=== PATIENT | male | born 1935 | race Caucasian/White ===

== ENCOUNTER 2016-11-09 20:25 | Inpatient (IN) | payer MEDICARE, OTHER ==
[2016-11-09] MEDS ORDERED: SODIUM CHLORIDE 0.9% 1,000 ML IV ONE (20:28)
[2016-11-09] MEDS ORDERED: SODIUM CHLORIDE 0.9% 500 ML IV ONE (20:28)
[2016-11-09] MEDS ORDERED: ACETAMINOPHEN IV (For NPO) 1,000 MG in SALINE 1 100ML.BAG IVPB STA (20:29)
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
[2016-11-09 20:55] LABS: Glucose,Whole Blood 103 mg/dL (75-99)
[2016-11-09 21:15] LABS: Basophils % (A) 0 %; CH 31.6; CHCM 33.1; Eosinophils % (A) 0 %; HCT 40.6 % (39.0-53.0); HDW 2.55; HGB 13.1 gm/dL (13.0-17.5); Luc # (Auto) 0.09; Luc % (Auto) 1; Lymphocytes # (A) 0.3 k/uL (1.0-4.8); Lymphocytes % (A) 5 %; MCH 30.9 pg (25.0-35.0); MCHC 32.2 g/dL (31.0-37.0); Mean Platelet Volume 7.5; Monocytes # (A) 0.3 k/uL (0-1.0); Monocytes % (A) 5 %; Neutrophils # (A) 5.8 k/uL (1.3-7.7); Neutrophils % (A) 88 %; RBC 4.23 m/uL (4.30-5.90); RDW 14.1 % (11.5-15.5); WBC 6.6 k/uL (3.8-10.6); WBC (Perox) 6.98
[2016-11-09 21:25] LABS: Ammonia <9 umol/L (<30)
[2016-11-09 21:26] LABS: INR 1.1 (<1.1); Partial Thromboplastin Time 26.6 sec (22.0-30.0); Prothrombin Time 10.9 sec (9.0-12.0)
[2016-11-09 21:27] LABS: Calcium 8.7 mg/dL (8.4-10.2); Potassium 4.9 mmol/L (3.5-5.1); Total Bilirubin 0.6 mg/dL (0.2-1.3); Total Protein 7.1 g/dL (6.3-8.2)
--- NOTE | 2016-11-09 21:39 | XR ---
EXAMINATION TYPE: XR chest 2V DATE OF EXAM: 11/09/2016 9:34 PM COMPARISON: NONE HISTORY: Weakness and altered mental status TECHNIQUE: Frontal and lateral views of the chest are obtained. FINDINGS: Heart is probably enlarged. Lungs are clear. There is no heart failure. Thoracic aorta is atheromatous. There are no hilar masses. There are chest leads. Bony thorax is intact. IMPRESSION: Cardiomegaly. No acute lung disease.
[2016-11-09 21:51] LABS: Creatine Kinase MB 0.6 ng/mL (0.0-2.4); Troponin I 0.04 ng/mL (0.000-0.034)
[2016-11-09] MEDS ORDERED: ACETAMINOPHEN TAB 325 MG TAB PO PRN (22:58)
[2016-11-09] MEDS ORDERED: NALOXONE 0.4 MG/ML 1 ML VIAL IV PRN (22:58)
[2016-11-09 23:34] LABS: Amorphous Sediment,Urine Rare /hpf; Appearance,Urine Clear (Clear); Bilirubin,Urine Negative (Negative); Glucose,Urine (UA) Negative (Negative); Ketones,Urine Negative (Negative); Leukocyte Esterase,Urine Negative (Negative); Mucus,Urine Rare /hpf; Nitrite,Urine Negative (Negative); PH, Urine 5.5 (5.0-8.0); Particle Count 3674; Protein,Urine 2+ (Negative); RBC,Urine 2 /hpf (0-5); Specific Gravity,Urine 1.008 (1.001-1.035); UA Billing (MACRO vs. MICRO) MICRO; Urobilinogen,Urine <2.0 mg/dL (<2.0); WBC,Urine <1 /hpf (0-5)
[2016-11-10] MEDS: SODIUM CHLORIDE 0.9% 1,000 ML IV SCH ×3 (00:38→23:59)
[2016-11-10 00:45] LABS: Glucose,Whole Blood 117 mg/dL (75-99)
[2016-11-10] MEDS ORDERED: IBUPROFEN 800 MG TAB PO STA (00:54)
[2016-11-10 02:51] VITALS: BMI 29.2
[2016-11-10 03:01] LABS: Glucose,Whole Blood 132 mg/dL (75-99)
[2016-11-10 06:16] LABS: Glucose,Whole Blood 95 mg/dL (75-99)
[2016-11-10] MEDS ORDERED: NON-FORMULARY DRUG (Ubidecarenone [Co Q-10] 100 MG) PO SCH (09:00)
[2016-11-10] MEDS: CHOLECALCIFEROL 1,000 UNIT TAB PO SCH (10:03)
[2016-11-10] MEDS: CYANOCOBALAMIN 500 MCG TAB PO SCH (10:04)
[2016-11-10] MEDS: OSELTAMIVIR 75 MG CAP PO SCH (10:04)
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
[2016-11-10 11:47] LABS: Glucose,Whole Blood 88 mg/dL (75-99)
[2016-11-10] MEDS: guaiFENesin-Coden 100-10MG/5ML 10 ML CUP PO PRN ×2 (12:37→19:41)
[2016-11-10 16:47] LABS: Glucose,Whole Blood 97 mg/dL (75-99)
[2016-11-10] MEDS ORDERED: METOPROLOL TARTRATE 25 MG TAB PO SCH (17:30)
[2016-11-10] MEDS ORDERED: amLODIPine 10 MG TAB PO SCH (18:30)
[2016-11-10] MEDS ORDERED: TEMAZEPAM 15 MG CAP PO PRN (20:45)
[2016-11-11 05:13] VITALS: RESP 18
[2016-11-11 07:08] LABS: Glucose,Whole Blood 80 mg/dL (75-99)
[2016-11-11] MEDS: CYANOCOBALAMIN 500 MCG TAB PO SCH (09:46)
[2016-11-11] MEDS: OSELTAMIVIR 75 MG CAP PO SCH (09:46)
[2016-11-11] MEDS: CHOLECALCIFEROL 1,000 UNIT TAB PO SCH (09:46)
[2016-11-11 11:36] LABS: Glucose,Whole Blood 126 mg/dL (75-99)
[2016-11-11 13:02] VITALS: BP 117/68; PULSE 64; TEMP 99
--- NOTE | 2016-11-11 13:04 | CDI ---
Date: 11/11/2016 From: Kenyatta Jones RN, BSN, CCDS Admit Date: 11/09/2016 Patient Name: Edgard Blair Visit Number: [id number] [facility] [address] [place] [address] Documentation Clarification Form History/Risk Factors : Hypertension Atrial Fibrillation Influenza Dehydration Clinical Indicators : Current BUN/CR/GFR: 05/12. on 11/09 CKD documented in H&P Encephalopathy documented in H&P Treatment: IV fluids In order to capture the severity of condition, please clarify if the condition signifies: CKD Stage 1 (GFR > 90) CKD Stage 2 (GFR 60-89) CKD Stage 3 (GFR 30-59) CKD Stage 4 (GFR 15-29) CKD Stage 5 (GFR <15) ESRD Unable to determine Other condition, please specify Please document in your progress notes and discharge summary in order to capture severity of illness and risk of mortality. Include clinical findings that support your diagnosis. FYI: Press F11 to launch patient chart. Place X here if this finding has no clinical significance, is not applicable or if you are not able to provide any additional documentation. MAURI
[2016-11-11] MEDS: SODIUM CHLORIDE 0.9% 1,000 ML IV SCH (16:13)
--- NOTE | 2016-11-12 19:04 | DS ---
DATE OF ADMISSION: 11/09/2016 DATE OF DISCHARGE: 11/11/2016 FINAL DIAGNOSES: 1. Influenza B with change in mental status and metabolic encephalopathy. 2. Chronic renal failure. 3. Dehydration. 4. Atrial fibrillation. 5. Patient declined anticoagulation. 6. Hypertension. 7. Coronary artery disease, stent. DISCHARGE DISPOSITION: The patient will be discharged in a stable condition with guarded prognosis. HISTORY OF PRESENT ILLNESS: This 81-year-old gentleman who presented with a past medical history of multiple medical problems being followed by Dr. Osvaldo Robbins in the outpatient setting, admitted to the hospital with acute influenza B. Patient also had change in mental status, metabolic encephalopathy, treated symptomatically. continued. The patient improved significantly. On exam, vitals are stable. CARDIOVASCULAR: S1, S2 muffled. ABDOMEN: Soft. CENTRAL NERVOUS SYSTEM: No focal deficits. DISCHARGE ADVICE AND MEDICATIONS: 1. Diet is cardiac. 2. Activity limited until follow-up. 3. Follow-up with Dr. Osvaldo Robbins in 2 to 3 days. 4. Ecotrin 81 mg p.o. daily. 5. Vitamin D3 2000 daily. 6. Vitamin B12 500 mcg. 7. Lopressor 25 mg daily. 8. Tamiflu 30 mg p.o. daily for 3 more days. 9. Coenzyme-Q 100 mg p.o. daily. 10. Norvasc 5 mg p.o. daily. MTDD
--- NOTE | 2016-11-15 07:17 | PN ---
PROGRESS NOTE ADDENDUM: Please add a FINAL DIAGNOSIS: Chronic kidney disease, stage III.
== END 2016-11-11 16:58 | disposition home or self-care (01) | DRG 193 ==
LOC: EC 20:25 → 6SEL 22:58
PROVIDERS: ADMIT Family Medicine; ATTEND Family Medicine
DX: J10.1 Influenza due to other identified influenza virus with other respiratory manifestations (principal); G93.41 Metabolic encephalopathy; I48.91 Unspecified atrial fibrillation; G62.9 Polyneuropathy, unspecified; E86.0 Dehydration; N18.3 Chronic kidney disease, stage 3 (moderate); I12.9 Hypertensive chronic kidney disease with stage 1 through stage 4 chronic kidney disease, or unspecified chronic kidney disease; I25.10 Atherosclerotic heart disease of native coronary artery without angina pectoris; M19.90 Unspecified osteoarthritis, unspecified site; K21.9 Gastro-esophageal reflux disease without esophagitis; Z87.11 Personal history of peptic ulcer disease; Z87.442 Personal history of urinary calculi; Z87.891 Personal history of nicotine dependence; Z95.5 Presence of coronary angioplasty implant and graft; Z90.49 Acquired absence of other specified parts of digestive tract; Z98.42 Cataract extraction status, left eye; Z98.41 Cataract extraction status, right eye; Z96.1 Presence of intraocular lens; Z79.899 Other long term (current) drug therapy
CPT/HCPCS: 36415; 71020; 80053; 80306; 81001; 82140; 82550; 82553; 83605; 84484; 85025; 85610; 85730; 87040; 87086; 93005; 96361; 96365; 96366; 99285

== ENCOUNTER → 2016-11-14 | Outpatient (CLI) | payer MEDICARE, OTHER ==
--- NOTE | 2016-11-14 17:34 | XR ---
EXAMINATION TYPE: XR chest 2V DATE OF EXAM: 11/14/2016 5:12 PM COMPARISON: November 09, 2016 HISTORY: Cough and congestion TECHNIQUE: Frontal and lateral views of the chest are obtained. FINDINGS: There is no heart failure nor confluent pneumonic infiltrate. Thoracic aorta is atheromato us. Costophrenic angles are clear. There is spurring in the thoracic spine. IMPRESSION: No active cardiopulmonary disease. No change. Atheromatous aorta.
== END | disposition home or self-care (01) ==
LOC: RADXRMAIN 16:50
PROVIDERS: ATTEND Physician Assistant
DX: I70.0 Atherosclerosis of aorta (principal); J20.9 Acute bronchitis, unspecified
CPT/HCPCS: 71020

== ENCOUNTER → 2016-12-22 | Outpatient (CLI) | payer MEDICARE, OTHER ==
--- NOTE | 2016-12-23 08:52 | XR ---
EXAMINATION TYPE: XR knee complete LT DATE OF EXAM ORDERED: 12/22/2016 5:45 PM HISTORY: LEFT KNEE PAIN. COMPARISON: None. FINDINGS: There is minimal peaking of intercondylar spines. There is mild medial joint space loss. T here is no evidence of chondrocalcinosis. No acute lesion is seen. Minor fullness in the suprapatella r region makes it impossible to exclude a small effusion. There is vascular calcification present. IMPRESSION: 1. EARLIEST CHANGES OF OSTEOARTHRITIS. 2. I CANNOT EXCLUDE A SMALL JOINT EFFUSION.
== END | disposition home or self-care (01) ==
LOC: RADXRMAIN 17:13
PROVIDERS: ATTEND Family Medicine
DX: M25.562 Pain in left knee (principal)

== ENCOUNTER → 2017-07-13 | Outpatient (CLI) | payer MEDICARE, OTHER ==
--- NOTE | 2017-07-14 07:10 | XR ---
EXAMINATION TYPE: XR tibia fibula LT DATE OF EXAM: 07/13/2017 CLINICAL HISTORY: pain TECHNIQUE: AP and lateral images of the left tibia and fibula are obtained. COMPARISON: None. FINDINGS: There is no acute fracture/dislocation evident. The joint spaces appear within normal chambers its. The overlying soft tissue appears unremarkable. IMPRESSION: There is no acute fracture or dislocation seen. ICD 10 NO FRACTURE, INITIAL EVALUATION
== END | disposition home or self-care (01) ==
LOC: RADXRMAIN 16:21
PROVIDERS: ATTEND Family Medicine
DX: M79.605 Pain in left leg (principal)

== ENCOUNTER → 2017-07-15 | Outpatient (CLI) | payer MEDICARE, OTHER ==
--- NOTE | 2017-07-16 15:01 | XR ---
EXAMINATION TYPE: XR knee complete LT DATE OF EXAM: 07/15/2017 COMPARISON: 12/22/2016 HISTORY: Knee pain TECHNIQUE: 4 views FINDINGS: I see no fracture nor dislocation. There is small knee joint effusion. There is spurring on the patella. IMPRESSION: Mild spurring. Small joint effusion.. No fracture. Overall no significant change compared to old exam.
== END | disposition home or self-care (01) ==
LOC: RADXRMAIN 13:53
PROVIDERS: ATTEND Family Medicine
DX: M25.462 Effusion, left knee (principal); M76.892 Other specified enthesopathies of left lower limb, excluding foot

== ENCOUNTER 2018-11-28 20:00 | Inpatient (IN) | payer MEDICARE ==
[2018-11-28] MEDS ORDERED: ACETAMINOPHEN TAB 500 MG TAB PO STA (21:10)
[2018-11-28] MEDS: SODIUM CHLORIDE 0.9% 500 ML 500 ML IV SCH ×2 (21:33→21:34)
[2018-11-28 21:34] LABS: Basophils % (A) 0 %; Eosinophils % (A) 0 %; HCT 38.9 % (39.0-53.0); Lymphocytes # (A) 0.2 k/uL (1.0-4.8); Lymphocytes % (A) 1 %; MCH 32.2 pg (25.0-35.0); MCHC 33.5 g/dL (31.0-37.0); MCV 95.9 fL (80.0-100.0); Mean Platelet Volume 7.6; Monocytes # (A) 0.6 k/uL (0-1.0); Monocytes % (A) 4 %; Neutrophils # (A) 14.3 k/uL (1.3-7.7); Neutrophils % (A) 94 %; Platelet Count 131 k/uL (150-450); RBC 4.05 m/uL (4.30-5.90); RDW 13.9 % (11.5-15.5); WBC 15.2 k/uL (3.8-10.6)
[2018-11-28 21:42] LABS: Partial Thromboplastin Time 25.8 sec (22.0-30.0)
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
[2018-11-28 21:45] LABS: Albumin 3.8 g/dL (3.5-5.0); Calcium 9.2 mg/dL (8.4-10.2); Total Bilirubin 0.8 mg/dL (0.2-1.3); Total Protein 6.7 g/dL (6.3-8.2)
[2018-11-28 21:56] LABS: Creatine Kinase MB 0.7 ng/mL (0.0-2.4)
[2018-11-28 22:01] LABS: Troponin I 0.045 ng/mL (0.000-0.034)
--- NOTE | 2018-11-28 22:16 | XR ---
History: ITS.REASON XR Reason: Fever Exam: XR CXR 2 VIEWS Comparison: 11/14/2016 FINDINGS: The lungs are clear. The cardiac silhouette again appears enlarged. Visualized osseous structures appear within limits. IMPRESSION: No evidence of acute disease.
[2018-11-28 23:54] LABS: Appearance,Urine Clear (Clear); Bacteria,Urine Rare /hpf; Bilirubin,Urine Negative (Negative); Blood,Urine Small (Negative); Color,Urine Light Yellow; Glucose,Urine (UA) Negative (Negative); Ketones,Urine Negative (Negative); Leukocyte Esterase,Urine Negative (Negative); Nitrite,Urine Negative (Negative); Protein,Urine 2+ (Negative); RBC,Urine 1 /hpf (0-5); Urobilinogen,Urine <2.0 mg/dL (<2.0)
--- NOTE | 2018-11-29 01:35 | CT ---
History: ITS.REASON CT Reason: Pain Exam: CT ABDOMEN + PELVIS Without Contrast Technique more: CTDI is 13.5 mGy and DLP is 787 mGy-cm. Technique more: This CT exam was performed using one or more of the following dose reduction techniques: automated exposure control, adjustment of the mA and/or kV according to patient size, and/or use of iterative reconstruction technique. Comparison: 02/03/2016 FINDINGS: Motion artifact. Basilar atelectasis. Cardiac size appears large. Coronary calcification or stents. Status post cholecystectomy. Atrophic kidneys with bilateral renal cysts again noted. No renal stones or hydronephrosis. Bilateral perinephric stranding is nonspecific. Other abdominal solid organs and abdominal aorta appear within limits on noncontrast imaging. Aortoiliac atherosclerotic calcification again noted. No bowel dilation or free air. Diverticulosis without evidence of diverticulitis. No free fluid. Fat-containing left inguinal hernia. The bladder is mostly collapsed. IMPRESSION: Basilar atelectasis. Cardiac size appears large. Coronary calcification or stents. Status post cholecystectomy. Atrophic kidneys with bilateral renal cysts again noted. No renal stones or hydronephrosis. Bilateral perinephric stranding is nonspecific. Diverticulosis without evidence of diverticulitis.
[2018-11-29] MEDS ORDERED: ONDANSETRON 4 MG/2 ML VIAL IVP PRN (03:56)
[2018-11-29] MEDS ORDERED: NALOXONE 0.4 MG/ML 1 ML VIAL IV PRN (03:56)
[2018-11-29] MEDS ORDERED: LEVOFLOXACIN 750MG-D5W PMX 750 MG in DEXTROSE/WATER 1 150ML.BAG IVPB STA (04:03)
[2018-11-29] MEDS: SODIUM CHLORIDE 0.9% 1,000 ML IV SCH (04:29)
[2018-11-29] MEDS: ACETAMINOPHEN TAB 325 MG TAB PO PRN ×2 (05:16→17:41)
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
[2018-11-29 12:30] LABS: Basophils % (A) 0 %; Eosinophils # (A) 0.1 k/uL (0-0.7); Eosinophils % (A) 0 %; HCT 36.3 % (39.0-53.0); HGB 11.5 gm/dL (13.0-17.5); Lymphocytes # (A) 0.7 k/uL (1.0-4.8); Lymphocytes % (A) 5 %; MCH 31.6 pg (25.0-35.0); MCHC 31.8 g/dL (31.0-37.0); MCV 99.5 fL (80.0-100.0); Mean Platelet Volume 6.9; Monocytes # (A) 0.5 k/uL (0-1.0); Monocytes % (A) 4 %; Neutrophils # (A) 12.7 k/uL (1.3-7.7); Neutrophils % (A) 90 %; Platelet Count 126 k/uL (150-450); RBC 3.65 m/uL (4.30-5.90); RDW 14.2 % (11.5-15.5); WBC 14.1 k/uL (3.8-10.6)
[2018-11-29 12:40] LABS: Albumin 3.1 g/dL (3.5-5.0); Calcium 8.8 mg/dL (8.4-10.2); Potassium 5.4 mmol/L (3.5-5.1); Total Bilirubin 0.6 mg/dL (0.2-1.3); Total Protein 5.7 g/dL (6.3-8.2)
--- NOTE | 2018-11-29 13:06 | CT ---
EXAMINATION TYPE: CT brain wo con DATE OF EXAM: 11/29/2018 COMPARISON: 09/22/2014 HISTORY: Altered mental status. CT DLP: 1149.[address] of the brain was performed. The ventricles, basal cisterns and sulci overlying the cerebral convexities demonstrate mild enlargem ent. There is no evidence for intracranial hemorrhage or sulcal effacement. There is decreased attenuation about the periventricular white matter and deep white matter of both c erebral hemispheres, compatible with chronic small vessel ischemia. Differential diagnosis does inclu de demyelination. No mass effects are seen.No midline shift. Osseous calvarium is intact. If symptoms persist consider MRI. IMPRESSION: 1. Age related atrophic and chronic small vessel ischemic change without acute intracranial process s een at this time.
[2018-11-29] MEDS: amLODIPine 10 MG TAB PO SCH (17:18)
[2018-11-29] MEDS: METOPROLOL TARTRATE 12.5 MG TAB PO SCH (17:18)
[2018-11-30] MEDS: SODIUM CHLORIDE 0.9% 1,000 ML IV SCH ×2 (00:29→16:26)
[2018-11-30] MEDS: ACETAMINOPHEN TAB 325 MG TAB PO PRN (03:06)
[2018-11-30] MEDS: CHOLECALCIFEROL 1,000 UNIT TAB PO SCH (08:45)
[2018-11-30] MEDS ORDERED: NON-FORMULARY DRUG (Ubidecarenone [Co Q-10] 100 MG) PO SCH (09:00)
[2018-11-30 11:30] LABS: Basophils % (A) 0 %; Eosinophils # (A) 0.1 k/uL (0-0.7); Eosinophils % (A) 0 %; HCT 42.3 % (39.0-53.0); HGB 13.6 gm/dL (13.0-17.5); Lymphocytes # (A) 1.3 k/uL (1.0-4.8); Lymphocytes % (A) 9 %; MCH 31.2 pg (25.0-35.0); MCHC 32.1 g/dL (31.0-37.0); MCV 97.3 fL (80.0-100.0); Mean Platelet Volume 7.7; Monocytes # (A) 0.8 k/uL (0-1.0); Monocytes % (A) 5 %; Neutrophils # (A) 11.9 k/uL (1.3-7.7); Neutrophils % (A) 83 %; RBC 4.35 m/uL (4.30-5.90); RDW 14.2 % (11.5-15.5); WBC 14.3 k/uL (3.8-10.6)
[2018-11-30 11:34] LABS: Platelet Count 93 k/uL (150-450)
[2018-11-30 11:37] LABS: Calcium 9.2 mg/dL (8.4-10.2)
[2018-11-30 11:39] LABS: Potassium 5.8 mmol/L (3.5-5.1)
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
[2018-11-30 12:11] LABS: Cholesterol 122 mg/dL (<200); HDL Cholesterol 37 mg/dL (40-60); LDL Cholesterol,Calculated 69 mg/dL (0-99); Triglycerides 80 mg/dL (<150)
--- NOTE | 2018-11-30 13:32 | ECHOF ---
Referral Reason:CAD MEASUREMENTS -------- HEIGHT: 165.1 cm WEIGHT: 92.1 kg BP: 155/65 IVSd: 1.6 cm (0.6 - 1.1) LVIDd: 4.0 cm (3.9 - 5.3) LVPWd: 1.7 cm (0.6 - 1.1) IVSs: 2.4 cm LVIDs: 2.5 cm LVPWs: 2.3 cm LAESV Index (A-L): 50.49 ml/m Ao Diam: 4.5 cm (2.0 - 3.7) AV Cusp: 2.0 cm (1.5 - 2.6) LA Diam: 4.0 cm (2.7 - 3.8) MV EXCURSION: 13.189 mm (> 18.000) MV EF SLOPE: 111 mm/s (70 - 150) EPSS: 0.7 cm MV E Sotero: 1.07 m/s MV DecT: 204 ms MV A Sotero: 0.28 m/s MV E/A Ratio: 3.82 AR PHT: 343 ms RAP: 5.00 mmHg RVSP: 10.33 mmHg FINDINGS -------- Sinus rhythm with extra systolic beats. This was a technically difficult study with suboptimal views. The left ventricular size is normal. There is moderate concentric left ventricular hypertrophy. O verall left ventricular systolic function is mildly impaired with, an EF between 45 - 50 %. Basal a nterior LV wall motion is hypokinetic. Basal inferior LV wall motion is hypokinetic. Mid anteri or LV wall motion is hypokinetic. The right ventricle is normal in size. LA is severely dilated >40 ml/m2 The right atrium is normal in size. xx ml of Lumason was utilized for enhancement of images. Aortic valve is trileaflet and is mildly thickened. Trace amount of aortic regurgitation. The mitral valve leaflets are mildly thickened. Mild mitral regurgitation is present. Mild tricuspid regurgitation present. The right ventricular systolic pressure, as measured by Doppl er, is 10.33mmHg. Pulmonic valve appears structurally normal. The aortic root and ascending aorta are dilated measuring up to 4.5 cm The pericardium is normal. CONCLUSIONS -------- 1. Sinus rhythm with extra systolic beats. 2. This was a technically difficult study with suboptimal views. 3. The left ventricular size is normal. 4. There is moderate concentric left ventricular hypertrophy. 5. Overall left ventricular systolic function is mildly impaired with, an EF between 45 - 50 %. 6. Basal anterior LV wall motion is hypokinetic. 7. Basal inferior LV wall motion is hypokinetic. 8. Mid anterior LV wall motion is hypokinetic. 9. The right ventricle is normal in size. 10. LA is severely dilated >40 ml/m2 11. The right atrium is normal in size. 12. xx ml of Lumason was utilized for enhancement of images. 13. Aortic valve is trileaflet and is mildly thickened. 14. Trace amount of aortic regurgitation. 15. The mitral valve leaflets are mildly thickened. 16. Mild mitral regurgitation is present. 17. Mild tricuspid regurgitation present. 18. The right ventricular systolic pressure, as measured by Doppler, is 10.33mmHg. 19. Pulmonic valve appears structurally normal. 20. The aortic root and ascending aorta are dilated measuring up to 4.5 cm. 21. The pericardium is normal. ROOFER APPLICATOR: Gardenia Nix RDCS
--- NOTE | 2018-11-30 13:36 | US ---
EXAMINATION TYPE: US venous doppler duplex LE RT DATE OF EXAM: 11/30/2018 1:29 PM COMPARISON: NONE CLINICAL HISTORY: lower ext swelling, right . Right leg edema SIDE PERFORMED: right TECHNIQUE: The lower extremity deep venous system is examined utilizing real time linear array sonog love with graded compression, doppler sonography and color-flow sonography. VESSELS IMAGED: External Iliac Vein (EIV) Common Femoral Vein Deep Femoral Vein Greater Saphenous Vein * Femoral Vein Popliteal Vein Small Saphenous Vein * Proximal Calf Veins (* superficial vessels) Right Leg: No evidence of DVT IMPRESSION: 1. Right lower survey ultrasound negative for deep venous thrombosis
[2018-11-30] MEDS ORDERED: SODIUM POLYSTYRENE SULFONATE 15 GM/60 ML BOTTLE PO ONE (14:29)
[2018-11-30] MEDS: HEPARIN SODIUM,PORCINE 5,000 UNIT/ML 1 ML VIAL SQ SCH (15:02)
[2018-11-30] MEDS: SODIUM CHLORIDE 0.45% 1,000 ML IV SCH (15:03)
[2018-11-30] MEDS: METOPROLOL TARTRATE 12.5 MG TAB PO SCH (17:17)
[2018-11-30] MEDS: amLODIPine 10 MG TAB PO SCH (17:17)
[2018-11-30] MEDS: SODIUM BICARBONATE TAB 650 MG TAB PO SCH (19:57)
--- NOTE | 2018-11-30 23:35 | P.PN ---
Subjective Progress Note Date: 11/30/18 Principal diagnosis: Altered mental status Fever Right lower extremities cellulitis Atrial fibrillation with RVR This is a pleasant 83-year-old male past medical history significant for coronary artery disease s/p stent placement o mid LAD and mild disease in RCA, circumflex and PLV branch, chronic persistent atrial fibrillation not on correction anti-coagulation due to personal choice, hypertension, chronic kidney disease, peripher neuropathy and gastroesophageal reflux disease presented the emergency room with fever and altered mental status. reported that extended nap and was unable to wake him. Found to have fever of 102.7 . Chest x-ray showed basilar atelectasis. No acute process. , CT head, CT abdomen and pelvis showed no acute process. WBC 15.2, hemoglobin 9.5, potassium 5.4 sodium 138 and BUN 47 and creatinine 2. 62 Troponin 0.045 and 0.074 11/28/2089 Patient currently denied any complaints of chest pain or shortness of breath. No cough is from production. No denied any dysuria or hematuria. Patient is able to communicate but poor historian. Patient does have some confusion at baseline. Patient was having fever this morning with T-max 100.3. Currently afebrile. Patient was found to have swelling or redness of right lower extremities after knee. Patient does not have any pain. Able to walk with walker. Patient was seen by cardiology and nephrology. Current medications reviewed. Active Medications Acetaminophen (Tylenol Tab) 650 mg PO Q6HR PRN PRN Reason: Mild Pain or Fever > 100.5 Last Admin: 11/30/18 03:06 Dose: 325 mg Amlodipine Besylate (Norvasc) 10 mg PO W/SUPPER [facility] Last Admin: 11/30/18 17:17 Dose: 10 mg Cholecalciferol (Vitamin D3) 2,000 unit PO DAILY [facility] Last Admin: 11/30/18 08:45 Dose: 2,000 unit Heparin Sodium (Porcine) (Heparin) 5,000 unit SQ Q8HR [facility] Last Admin: 11/30/18 15:02 Dose: 5,000 unit Sodium Chloride (Saline 0.45%) 1,000 mls @ 75 mls/hr IV .[id number] [facility] Last Admin: 11/30/18 15:03 Dose: 75 mls/hr Cefazolin Sodium/Dextrose 1, (000 mg/ IV Solution) 50 mls @ 100 mls/hr IVPB Q8HR [facility] Metoprolol Tartrate (Lopressor) 12.5 mg PO W/SUPPER [facility] Last Admin: 11/30/18 17:17 Dose: 12.5 mg Naloxone HCl (Narcan) 0.2 mg IV Q2M PRN PRN Reason: Opioid Reversal Ondansetron HCl (Zofran) 4 mg IVP Q8HR PRN PRN Reason: Nausea And Vomiting Sodium Bicarbonate (Sodium Bicarbonate Tab) 650 mg PO BID [facility] Last Admin: 11/30/18 19:57 Dose: 650 mg Objective - Vital Signs Vital signs: Vital Signs Temp 98.0 F 11/30/18 10:07 Pulse 96 11/30/18 10:07 Resp 18 11/30/18 10:07 BP 156/87 11/30/18 10:07 Pulse Ox 97 11/30/18 03:00 Intake & Output 11/29/18 11/30/18 11/30/18 18:59 06:59 18:59 Intake Total 150 Balance 150 Intake: Intake, IV Titration 150 Amount Sodium Chloride 0.9% 1, 150 000 ml @ 75 mls/hr IV . [id number] [facility] Rx#:[id number] Other: Voiding Method Toilet # Voids 2 1 - Exam PHYSICAL EXAMINATION: Patient is lying in the bed comfortably, no acute distress, awake alert and oriented. Confused. History unavailable. HEENT: Normocephalic. Neck is supple. Pupils reactive. Nostrils clear. Oral cavity is moist. Ears reveal no drainage. Neck reveals no JVD, carotid bruits, or thyromegaly. CHEST EXAMINATION: Trachea is central. Symmetrical expansion. Lung grajeda clear to auscultation and percussion. CARDIAC: Normal S1, S2 with no gallops. No murmurs ABDOMEN: Soft. Bowel sounds normal. No organomegaly. No abdominal bruits. Extremities: Right lower activity swelling and redness and warmth up to knee.. No clubbing or cyanosis Neurologically awake, alert, oriented x2-3 with well-coordinated movements. No focal deficits noted Skin: No rash or skin lesions. Psychiatric: Coperative. Could not be assessed completely. Musculoskeletal: No joint swelling or deformity. Normal range of motion. - Labs CBC & Chem 7: 11/30/18 10:40 11/30/18 10:40 Labs: Abnormal Lab Results - Last 24 Hours (Table) 11/29/18 11/30/18 11/30/18 Range/Units 11:50 10:40 10:40 WBC 14.3 H (3.8-10.6) k/uL Plt Count 93 L (150-450) k/uL Neutrophils # 11.9 H (1.3-7.7) k/uL Potassium 5.8 H (3.5-5.1) mmol/L Chloride 114 H (98-107) mmol/L Carbon Dioxide 18 L (22-30) mmol/L BUN 52 H (9-20) mg/dL Creatinine 3.08 H (0.66-1.25) mg/dL Glucose 101 H (74-99) mg/dL HDL Cholesterol 37 L (40-60) mg/dL Microbiology - Last 24 Hours (Table) 11/28/18 20:45 Blood Culture - Preliminary Blood No Growth after 24 hours 11/28/18 23:15 Urine Culture - Preliminary Urine,Catheterized Assessment and Plan Assessment: Altered mental status with metabolic encephalopathy due to infection and renal failure Right lower extremities cellulitis Fever and leukocytosis likely secondary to above Mild troponin elevation. Likely due to infection and ALTON. Chronic persistent atrial fibrillation. Rate regular rate controlled. Patient refused anticoagulation. Acute on chronic kidney disease. Likely stage III Baseline creatinine unknown. Hyperkalemia 5.8 secondary to ALTON History of coronary artery disease status post and placement GERD Hypertension Osteoarthritis Possible underlying cognitive impairment and underlying dementia DVT prophylaxis with heparin subcu Patient will be continued on telemetry monitoring. We'll change antibiotics to cefazolin IV. Chest x-ray, UA and influenza negative. Lower extremities duplex scan is negative for DVT. 2-D echocardiogram was ordered. Cardiology is following. Nephrology is on board. Workup for chronic kidney disease pending at this time. Continue with the current management and follow blood cultures. Discussed with his at bedside in detail. Prognosis is guarded with multiple medical problems and comorbid conditions. Time with Patient: Greater than 30
[2018-12-01 00:08] LABS: Hepatitis B Surface AB- Quant 3.5 mIU/mL; Hepatitis C IgG Antibody Non-Reactive (Non-Reactive)
[2018-12-01] MEDS: ceFAZolin 1,000 MG in DEXTROSE/WATER 1 50ML.BAG IVPB SCH ×4 (00:58→23:36)
[2018-12-01] MEDS: HEPARIN SODIUM,PORCINE 5,000 UNIT/ML 1 ML VIAL SQ SCH ×5 (00:58→23:42)
[2018-12-01 01:51] LABS: Anti-DNA, DS unit <1.0 IU/mL; DNA Double-Stranded NEGATIVE (NEGATIVE)
[2018-12-01] MEDS: SODIUM CHLORIDE 0.45% 1,000 ML IV SCH ×3 (04:21→20:10)
--- NOTE | 2018-12-01 05:58 | CONS ---
CONSULTATION REASON FOR CONSULT: Renal failure. HISTORY OF PRESENT ILLNESS: The patient is an 83-year-old male with a history of chronic atrial fibrillation, hypertension, osteoarthritis, gastroesophageal reflux disease. He was admitted to the hospital with complaints of weakness. He was found to have a fever of 102.7 degrees Fahrenheit. He denied any significant cough, abdominal pain, nausea, vomiting or diarrhea. The patient had CT of the abdomen done without IV contrast, which showed evidence of bilateral renal cysts with atrophic kidneys. Blood pressure has not been low, however, there was one reading of systolic blood pressure of 104 mmHg. At home, patient was not on any nonsteroidal anti-inflammatory agents. Serum creatinine was 2.6 mg/dL. It increased to 2.9 yesterday and today it is at 3.0 mg/dL. Review of previous labs show serum creatinine about 2.3-2.8 mg/dL all the way back to 2016. It looks like the patient was scheduled to see us in the office, but has not been seen by us. He states he has been voiding. UA does not show any evidence of infection. The patient does have 2+ protein. PAST MEDICAL HISTORY: Hypertension, osteoarthritis, coronary artery disease with history of coronary stent, gastroesophageal reflux disease and history of a GI bleed and duodenal ulcer. PAST SURGICAL HISTORY: Adenoidectomy, appendectomy, cholecystectomy, cardiac catheterization, prostatic surgery, tonsillectomy, coronary stent placement, cataract surgery, lithotripsy, colonoscopy, cystoscopy. SOCIAL HISTORY: Patient is a former smoker. No history of drug abuse or alcohol abuse. MEDICATIONS: Medications at home prior to admission included Lopressor, vitamin D3, Norvasc, vitamin B12. ALLERGIES: None. PHYSICAL EXAMINATION: Patient is comfortable, awake, alert, oriented x3, not in any acute distress. Blood pressure was this morning 156/87, heart rate 96 per minute. He is afebrile. Examination of the heart S1, S2. Examination lungs, bilateral breath sounds are heard. Abdomen is soft, nontender. Examination lower extremities shows no evidence of edema. [employer] exam is grossly intact. Patient moving all 4 extremities. LABS: Show sodium of 139, potassium 5.8, chloride 114, CO2 is 18, BUN 52, serum creatinine 3.08, hemoglobin 13.6 g/dL. UA shows 2+ protein, small blood is seen, rare bacteria. CT scan showed atrophic kidneys with bilateral cysts. No evidence of hydronephrosis. ASSESSMENT: 1. Acute kidney injury. Possible acute tubular necrosis, currently nonoliguric. Need to rule out urine retention. There is no evidence of significant hydronephrosis on the CT scan. The patient was not on any nephrotoxic agents prior to admission. Blood pressure has not been significantly low, although there was one reading of systolic of 104 mmHg. The patient does have proteinuria which needs to be evaluated. He has had a creatinine of about 2.[address] back in 2016. Therefore, I believe he may not be far from his baseline renal function. We will obtain workup for proteinuria and quantify the proteinuria. 2. Hyperkalemia associated with renal failure. Maintain patient on low-potassium diet and I will add sodium bicarb as well. 3. History of atrial fibrillation, controlled ventricular response. 4. Hypertension, currently controlled. 5. Cardiomyopathy, ejection fraction 45-50 percent. 6. Severely dilated left atrium. PLAN: Check random urine protein creatinine ratio. Add oral sodium bicarb. Continue with IV fluids. The patient will definitely need follow up as outpatient. I will check baseline serologies for workup of proteinuria as well. Check a postvoid residual to rule out urine retention and maintain patient on low-potassium diet. Thank you for this consultation. We will continue to follow the patient with you during his hospitalization. [id number] / IJN: [id number] /
[2018-12-01] MEDS: CHOLECALCIFEROL 1,000 UNIT TAB PO SCH (08:43)
[2018-12-01] MEDS: SODIUM BICARBONATE TAB 650 MG TAB PO SCH ×2 (08:43→20:08)
--- NOTE | 2018-12-01 13:11 | P.PN ---
Subjective Progress Note Date: 12/01/18 Principal diagnosis: This is a 83-year-old male seen in consultation because of chronic kidney disease and acute kidney injury He was admitted with mental status changes and fever cultures are negative so far urine analysis benign chest x-ray is negative. He is improved is awake and alert. It seems that he was referred to our office but did not show up in 2016. His creatinine was 2.9 at the time Currently he is awake alert oriented denies any chest pain shortness of breath nausea vomiting diarrhea appetite is good No problem with his urinary habits or any history of prostatism. He does say that he had kidney stones that were removed in the past graft workup has shown a computed tomography scan with small kidneys no kidney stones are noted. He's had history of heart catheterization prostate surgery lithotripsy. Objective - Vital Signs Vital signs: Vital Signs Temp 97.8 F 12/01/18 07:00 Pulse 73 12/01/18 07:00 Resp 14 12/01/18 07:00 BP 145/78 12/01/18 07:00 Pulse Ox 100 12/01/18 07:00 Intake & Output 11/30/18 12/01/18 12/01/18 18:59 06:59 18:59 Intake Total 525 950 296 Output Total 150 Balance 375 950 296 Intake: Intake, IV Titration 525 950 Amount Sodium Chloride 0.45% 1, 525 900 000 ml @ 75 mls/hr IV . [id number] [place] Rx#:[id number] ceFAZolin 1,000 mg In 50 Dextrose/Water 1 50ml.bag @ 100 mls/hr IVPB Q8HR [place] Rx#:[id number] Oral 296 Output: Urine 150 Other: Voiding Method Toilet Toilet # Voids 1 2 On exam she is awake alert oriented. HEENT exam no JVP neck is supple no facial asymmetry Lungs clear to auscultation good air entry bilaterally Heart sounds unremarkable for any murmur rub gallop Abdomen soft nontender Extremity exam significant for erythema of his right leg up to the knees with minimal tenderness. Possible cellulitis. Minimal edema on the right as well left. Neurologically awake alert oriented - Labs CBC & Chem 7: 11/30/18 10:40 11/30/18 10:40 Labs: Abnormal Lab Results - Last 24 Hours (Table) 12/01/18 Range/Units Unknown U Random Total Protein 101 H (<12) mg/dL Microbiology - Last 24 Hours (Table) 11/28/18 20:45 Blood Culture - Preliminary Blood No Growth after 48 hours 11/28/18 23:15 Urine Culture - Final Urine,Catheterized Assessment and Plan Assessment: Impression 1. Chronic kidney disease likely nephrosclerosis with 2 g proteinuria not worked up. Rule out other glomerular or tubulous interstitial disease. Baseline creatinine 2.3 as of 11/09/2016 admitted with creatinine off 2.6 to and has gone up to 3.08 yesterday and refuses lab this morning 2. Hyperkalemia secondary to chronic kidney disease creatinine is 5.8 refuses lab this morning. Was prescribed Kayexalate as well as sodium bicarb, the latter he refused. 3. Mild degree of non-gap acidosis. Gap 7 and bicarb 18. Refusing bicarb. 4. Cellulitis right leg up to knees on antibiotics. 5. Rule out glomerular disease as mentioned above, urine protein to creatinine ratio is 2 g range. so far SUAD and double-stranded DNA is negative Recommendations 1. Check urine immunoelectrophoresis. 2. Labs pending include C3-C4 c-ANCA 3. Patient is somewhat noncompliant patient has been warned about needing dialysis in the immediate future in the next few weeks to months. His been told to follow up with office if he is discharged as he is asking to be discharged [facility]
[2018-12-01 15:31] LABS: Basophils % (A) 1 %; Eosinophils # (A) 0.1 k/uL (0-0.7); Eosinophils % (A) 2 %; HCT 39.1 % (39.0-53.0); HGB 12.3 gm/dL (13.0-17.5); Lymphocytes # (A) 0.9 k/uL (1.0-4.8); Lymphocytes % (A) 14 %; MCH 31.1 pg (25.0-35.0); MCHC 31.5 g/dL (31.0-37.0); MCV 98.9 fL (80.0-100.0); Mean Platelet Volume 7.4; Monocytes # (A) 0.4 k/uL (0-1.0); Monocytes % (A) 7 %; Neutrophils # (A) 4.4 k/uL (1.3-7.7); Neutrophils % (A) 73 %; Platelet Count 116 k/uL (150-450); RBC 3.95 m/uL (4.30-5.90); RDW 14.1 % (11.5-15.5)
[2018-12-01 15:41] LABS: Calcium 8.8 mg/dL (8.4-10.2); Potassium 4.8 mmol/L (3.5-5.1)
[2018-12-01] MEDS: METOPROLOL TARTRATE 12.5 MG TAB PO SCH (16:27)
[2018-12-01] MEDS: amLODIPine 10 MG TAB PO SCH (16:27)
[2018-12-01] MEDS: ACETAMINOPHEN TAB 325 MG TAB PO PRN (23:59)
--- NOTE | 2018-12-01 23:59 | P.PN ---
Subjective Progress Note Date: 12/01/18 Principal diagnosis: Altered mental status Fever Right lower extremities cellulitis Atrial fibrillation with RVR This is a pleasant 83-year-old male past medical history significant for coronary artery disease s/p stent placement o mid LAD and mild disease in RCA, circumflex and PLV branch, chronic persistent atrial fibrillation not on body masker anti-coagulation due to personal choice, hypertension, chronic kidney disease, peripher neuropathy and gastroesophageal reflux disease presented the emergency room with fever and altered mental status. reported that extended nap and was unable to wake him. Found to have fever of 102.7 . Chest x-ray showed basilar atelectasis. No acute process. , CT head, CT abdomen and pelvis showed no acute process. WBC 15.2, hemoglobin 9.5, potassium 5.4 sodium 138 and BUN 47 and creatinine 2. 62 Troponin 0.045 and 0.074 11/30/2018 Patient currently denied any complaints of chest pain or shortness of breath. No cough is from production. No denied any dysuria or hematuria. Patient is able to communicate but poor historian. Patient does have some confusion at baseline. Patient was having fever this morning with T-max 100.3. Currently afebrile. Patient was found to have swelling or redness of right lower extremities after knee. Patient does not have any pain. Able to walk with walker. Patient was seen by cardiology and nephrology. 12/01/2018 Patient currently denied any complaints of chest pain or shortness of breath. Right lower extremities swelling is improved but still having redness and mild tenderness. No fever no chills. Leukocytosis improved. Renal function slightly improved with creatinine level II.8 today Nephrology and cardiology is following. current medications reviewed. Active Medications Acetaminophen (Tylenol Tab) 650 mg PO Q6HR PRN PRN Reason: Mild Pain or Fever > 100.5 Last Admin: 11/30/18 03:06 Dose: 325 mg Amlodipine Besylate (Norvasc) 10 mg PO W/SUPPER [facility] Last Admin: 11/30/18 17:17 Dose: 10 mg Cholecalciferol (Vitamin D3) 2,000 unit PO DAILY [facility] Last Admin: 11/30/18 08:45 Dose: 2,000 unit Heparin Sodium (Porcine) (Heparin) 5,000 unit SQ Q8HR [facility] Last Admin: 11/30/18 15:02 Dose: 5,000 unit Sodium Chloride (Saline 0.45%) 1,000 mls @ 75 mls/hr IV .[id number] [facility] Last Admin: 11/30/18 15:03 Dose: 75 mls/hr Cefazolin Sodium/Dextrose 1, (000 mg/ IV Solution) 50 mls @ 100 mls/hr IVPB Q8HR [facility] Metoprolol Tartrate (Lopressor) 12.5 mg PO W/SUPPER [facility] Last Admin: 11/30/18 17:17 Dose: 12.5 mg Naloxone HCl (Narcan) 0.2 mg IV Q2M PRN PRN Reason: Opioid Reversal Ondansetron HCl (Zofran) 4 mg IVP Q8HR PRN PRN Reason: Nausea And Vomiting Sodium Bicarbonate (Sodium Bicarbonate Tab) 650 mg PO BID [facility] Last Admin: 11/30/18 19:57 Dose: 650 mg Objective - Vital Signs Vital signs: Vital Signs Temp 98.2 F 12/01/18 20:00 Pulse 56 L 12/01/18 20:00 Resp 18 12/01/18 20:00 BP 148/85 12/01/18 20:00 Pulse Ox 98 12/01/18 20:00 Intake & Output 12/01/18 12/01/18 12/02/18 06:59 18:59 06:59 Intake Total 950 821 262.5 Output Total 150 Balance 950 671 262.5 Intake: Intake, IV Titration 950 525 262.5 Amount Sodium Chloride 0.45% 1, 900 525 262.5 000 ml @ 75 mls/hr IV . [id number] [facility] Rx#:[id number] ceFAZolin 1,000 mg In 50 Dextrose/Water 1 50ml.bag @ 100 mls/hr IVPB Q8HR [facility] Rx#:[id number] Oral 296 Output: Urine 150 Other: Voiding Method Toilet Toilet # Voids 1 6 1 - Exam PHYSICAL EXAMINATION: Patient is lying in the bed comfortably, no acute distress, awake alert and oriented. Confused. History unavailable. HEENT: Normocephalic. Neck is supple. Pupils reactive. Nostrils clear. Oral cavity is moist. Ears reveal no drainage. Neck reveals no JVD, carotid bruits, or thyromegaly. CHEST EXAMINATION: Trachea is central. Symmetrical expansion. Lung grajeda clear to auscultation and percussion. CARDIAC: Normal S1, S2 with no gallops. No murmurs ABDOMEN: Soft. Bowel sounds normal. No organomegaly. No abdominal bruits. Extremities: Right lower activity swelling and redness and warmth up to knee.. No clubbing or cyanosis Neurologically awake, alert, oriented x2-3 with well-coordinated movements. No focal deficits noted Skin: No rash or skin lesions. Psychiatric: Coperative. Could not be assessed completely. Musculoskeletal: No joint swelling or deformity. Normal range of motion. - Labs CBC & Chem 7: 12/01/18 15:11 12/01/18 15:11 Labs: Abnormal Lab Results - Last 24 Hours (Table) 12/01/18 12/01/18 12/01/18 Range/Units 15:11 15:11 Unknown RBC 3.95 L (4.30-5.90) m/uL Hgb 12.3 L (13.0-17.5) gm/dL Plt Count 116 L (150-450) k/uL Lymphocytes # 0.9 L (1.0-4.8) k/uL BUN 52 H (9-20) mg/dL Creatinine 2.87 H (0.66-1.25) mg/dL Glucose 109 H (74-99) mg/dL U Random Total Protein 101 H (<12) mg/dL Microbiology - Last 24 Hours (Table) 11/28/18 20:45 Blood Culture - Preliminary Blood No Growth after 48 hours Assessment and Plan Assessment: Altered mental status with metabolic encephalopathy due to infection and renal failure. Improved Right lower extremities cellulitis. Fever and leukocytosis likely secondary to above Mild troponin elevation. Likely due to infection and ALTON. Chronic persistent atrial fibrillation. Rate regular rate controlled. Patient refused anticoagulation. Acute on chronic kidney disease. Likely stage III Baseline creatinine unknown. Chronic kidney disease likely nephrosclerosis with 2 g proteinuria. Rule out other glomerular or tubulous interstitial disease. Baseline creatinine 2.3 as of 11/09/2016. Workup in process area Hyperkalemia 5.8 secondary to ALTON History of coronary artery disease status post and placement GERD Hypertension Osteoarthritis Possible underlying cognitive impairment and underlying dementia DVT prophylaxis with heparin subcu Patient will be continued on telemetry monitoring. Continue with antibiotics to cefazolin IV. Chest x-ray, UA and influenza negative. Lower extremities duplex scan is negative for DVT. 2-D echocardiogram was ordered. Cardiology is following. Nephrology is on board. Workup for chronic kidney disease pending at this time. Continue with the current management and follow blood cultures. Discussed with his at bedside in detail. Prognosis is guarded with multiple medical problems and comorbid conditions. Time with Patient: Greater than 30
--- NOTE | 2018-12-02 07:39 | P.PN ---
Subjective Progress Note Date: 12/02/18 Principal diagnosis: This is a 83-year-old male seen in consultation because of chronic kidney disease and acute kidney injury He was admitted with mental status changes and fever and cellulitis of right leg , cultures are negative so far urine analysis benign chest x-ray is negative. He is improved is awake and alert. His right leg erythema is strangely enough painless except in the lower leg and ankle area and remains about same It seems that he was referred to our office but did not show up in 2016. His creatinine was 2.9 at the time Currently he is awake alert oriented denies any chest pain shortness of breath nausea vomiting diarrhea appetite is good. No problem with his urinary habits or any history of prostatism. He does say that he had kidney stones that were removed in the past -workup has shown a computed tomography scan with small kidneys no kidney stones are noted. He's had history of heart catheterization prostate surgery lithotripsy. Objective - Vital Signs Vital signs: Vital Signs Temp 98.2 F 12/01/18 20:00 Pulse 56 L 12/01/18 20:00 Resp 18 12/01/18 20:00 BP 148/85 12/01/18 20:00 Pulse Ox 98 12/01/18 20:00 Intake & Output 12/01/18 12/02/18 12/02/18 18:59 06:59 18:59 Intake Total 821 912.5 Output Total 150 Balance 671 912.5 Intake: Intake, IV Titration 525 912.5 Amount Sodium Chloride 0.45% 1, 525 862.5 000 ml @ 75 mls/hr IV . [id number] [place] Rx#:[id number] ceFAZolin 1,000 mg In 50 Dextrose/Water 1 50ml.bag @ 100 mls/hr IVPB Q8HR [place] Rx#:[id number] Oral 296 Output: Urine 150 Other: Voiding Method Toilet # Voids 6 3 On examination is awake alert oriented comfortable HEENT exam no JVP neck is supple no facial asymmetry Lungs clear to auscultation good air entry bilaterally Heart sounds unremarkable no murmur rub gallop Abdomen soft nontender nondistended Extremity exam reveals erythema of the right leg below the knee and very well- demarcated at the ankle and at the knees and strangely enough not very tender. Minimal edema more so on the right than the left. Neurologically awake alert and oriented - Labs CBC & Chem 7: 12/01/18 15:11 12/01/18 15:11 Labs: Abnormal Lab Results - Last 24 Hours (Table) 12/01/18 12/01/18 Range/Units 15:11 15:11 RBC 3.95 L (4.30-5.90) m/uL Hgb 12.3 L (13.0-17.5) gm/dL Plt Count 116 L (150-450) k/uL Lymphocytes # 0.9 L (1.0-4.8) k/uL BUN 52 H (9-20) mg/dL Creatinine 2.87 H (0.66-1.25) mg/dL Glucose 109 H (74-99) mg/dL Microbiology - Last 24 Hours (Table) 11/28/18 20:45 Blood Culture - Preliminary Blood No Growth after 72 hours Assessment and Plan Assessment: Impression 1. Chronic kidney disease likely nephrosclerosis with 2 g proteinuria not worked up. Rule out other glomerular or tubulous interstitial disease. Baseline creatinine 2.3 as of 11/09/2016 admitted with creatinine off 2.6 to and has gone up to 3.08, came down to 2.8 yesterday 2. Hyperkalemia secondary to chronic kidney disease creatinine is 5.8 and improved to 4.8 yesterday 3. Mild degree of non-gap acidosis. Gap 7 and bicarb 18. Refusing bicarb. Bicarb is improved to 23 4. Cellulitis right leg up to knees on antibiotics. 5. Rule out glomerular disease as mentioned above, urine protein to creatinine ratio is 2 g range. so far SUAD and double-stranded DNA is negative, complements are unremarkable, urine immunofixation is pending Recommendations 1. Check urine immunoelectrophoresis. 2. Labs pending include c-ANCA 3. Patient is somewhat noncompliant patient has been warned about needing dialysis in the immediate future in the next few weeks to months. His been told to follow up with office if he is discharged as he is asking to be discharged AMA
[2018-12-02] MEDS: ACETAMINOPHEN TAB 325 MG TAB PO PRN ×2 (07:59→23:30)
[2018-12-02] MEDS: SODIUM BICARBONATE TAB 650 MG TAB PO SCH ×2 (08:00→21:34)
[2018-12-02] MEDS: ceFAZolin 1,000 MG in DEXTROSE/WATER 1 50ML.BAG IVPB SCH ×3 (08:01→23:33)
[2018-12-02] MEDS: HEPARIN SODIUM,PORCINE 5,000 UNIT/ML 1 ML VIAL SQ SCH ×3 (08:01→21:34)
[2018-12-02] MEDS: CHOLECALCIFEROL 1,000 UNIT TAB PO SCH (08:01)
[2018-12-02] MEDS: METOPROLOL TARTRATE 12.5 MG TAB PO SCH (16:43)
[2018-12-02] MEDS: amLODIPine 10 MG TAB PO SCH (16:44)
[2018-12-02] MEDS: SODIUM CHLORIDE 0.45% 1,000 ML IV SCH (21:38)
--- NOTE | 2018-12-03 00:34 | P.PN ---
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 reported that extended nap and was unable to wake him. Found to have fever of 102.7 . Chest x-ray showed basilar atelectasis. No acute process. , CT head, CT abdomen and pelvis showed no acute process. WBC 15.2, hemoglobin 9.5, potassium 5.4 sodium 138 and BUN 47 and creatinine 2. 62 Troponin 0.045 and 0.074 11/30/2018 Patient currently denied any complaints of chest pain or shortness of breath. No cough is from production. No denied any dysuria or hematuria. Patient is able to communicate but poor historian. Patient does have some confusion at baseline. Patient was having fever this morning with T-max 100.3. Currently afebrile. Patient was found to have swelling or redness of right lower extremities after knee. Patient does not have any pain. Able to walk with walker. Patient was seen by cardiology and nephrology. 12/01/2018 Patient currently denied any complaints of chest pain or shortness of breath. Right lower extremities swelling is improved but still having redness and mild tenderness. No fever no chills. Leukocytosis improved. Renal function slightly improved with creatinine level II.8 today Nephrology and cardiology is following. 12/02/2018 Patient says that his right leg pain is improved and is able to walk. Otherwise patient is still having redness of the right leg up to knee. Continued on antibiotics in the form of cefazolin. Blood cultures negative. Urine culture showed no growth. Patient also have chronic kidney disease and workup is in process as per nephrology. Creatinine level was 2.87 yesterday. current medications reviewed. Active Medications Acetaminophen (Tylenol Tab) 650 mg PO Q6HR PRN PRN Reason: Mild Pain or Fever > 100.5 Last Admin: 11/30/18 03:06 Dose: 325 mg Amlodipine Besylate (Norvasc) 10 mg PO W/SUPPER [place] Last Admin: 11/30/18 17:17 Dose: 10 mg Cholecalciferol (Vitamin D3) 2,000 unit PO DAILY [facility] Last Admin: 11/30/18 08:45 Dose: 2,000 unit Heparin Sodium (Porcine) (Heparin) 5,000 unit SQ Q8HR [facility] Last Admin: 11/30/18 15:02 Dose: 5,000 unit Sodium Chloride (Saline 0.45%) 1,000 mls @ 75 mls/hr IV .[id number] [facility] Last Admin: 11/30/18 15:03 Dose: 75 mls/hr Cefazolin Sodium/Dextrose 1, (000 mg/ IV Solution) 50 mls @ 100 mls/hr IVPB Q8HR [facility] Metoprolol Tartrate (Lopressor) 12.5 mg PO W/SUPPER [facility] Last Admin: 11/30/18 17:17 Dose: 12.5 mg Naloxone HCl (Narcan) 0.2 mg IV Q2M PRN PRN Reason: Opioid Reversal Ondansetron HCl (Zofran) 4 mg IVP Q8HR PRN PRN Reason: Nausea And Vomiting Sodium Bicarbonate (Sodium Bicarbonate Tab) 650 mg PO BID [facility] Last Admin: 11/30/18 19:57 Dose: 650 mg Objective - Vital Signs Vital signs: Vital Signs Temp 97.8 F 12/02/18 19:20 Pulse 59 L 12/02/18 19:20 Resp 16 12/02/18 19:20 BP 153/80 12/02/18 19:20 Pulse Ox 100 12/02/18 19:20 Intake & Output 12/02/18 12/02/18 12/03/18 06:59 18:59 06:59 Intake Total 912.5 240 Balance 912.5 240 Intake: Intake, IV Titration 912.5 Amount Sodium Chloride 0.45% 1, 862.5 000 ml @ 75 mls/hr IV . [id number] [facility] Rx#:[id number] ceFAZolin 1,000 mg In 50 Dextrose/Water 1 50ml.bag @ 100 mls/hr IVPB Q8HR [facility] Rx#:[id number] Oral 240 Other: Voiding Method Toilet Toilet # Voids 3 - Exam PHYSICAL EXAMINATION: Patient is lying in the bed comfortably, no acute distress, awake alert and oriented. Confused. History unavailable. HEENT: Normocephalic. Neck is supple. Pupils reactive. Nostrils clear. Oral cavity is moist. Ears reveal no drainage. Neck reveals no JVD, carotid bruits, or thyromegaly. CHEST EXAMINATION: Trachea is central. Symmetrical expansion. Lung grajeda clear to auscultation and percussion. CARDIAC: Normal S1, S2 with no gallops. No murmurs ABDOMEN: Soft. Bowel sounds normal. No organomegaly. No abdominal bruits. Extremities: Right lower activity swelling and redness and warmth up to knee.. No clubbing or cyanosis Neurologically awake, alert, oriented x2-3 with well-coordinated movements. No focal deficits noted Skin: No rash or skin lesions. Psychiatric: Coperative. Could not be assessed completely. Musculoskeletal: No joint swelling or deformity. Normal range of motion. - Labs CBC & Chem 7: 12/01/18 15:11 12/01/18 15:11 Labs: Microbiology - Last 24 Hours (Table) 11/28/18 20:45 Blood Culture - Preliminary Blood No Growth after 72 hours Assessment and Plan Assessment: Altered mental status with metabolic encephalopathy due to infection and renal failure. Improved Right lower extremity cellulitis extending up to knee. Fever and leukocytosis likely secondary to above. Resolving now. Mild troponin elevation. Likely due to infection and ALTON. Chronic persistent atrial fibrillation. Rate regular rate controlled. Patient refused anticoagulation. Acute on chronic kidney disease. Likely stage III Baseline creatinine unknown. Chronic kidney disease likely nephrosclerosis with 2 g proteinuria. Rule out other glomerular or tubulous interstitial disease. Baseline creatinine 2.3 as of 11/09/2016. Workup in process area Hyperkalemia 5.8 secondary to ALTON History of coronary artery disease status post and placement GERD Hypertension Osteoarthritis Possible underlying cognitive impairment and underlying dementia DVT prophylaxis with heparin subcu Patient will be continued on telemetry monitoring. Continue with antibiotics to cefazolin IV. Patient is still having redness of the right leg up knee. Pain and swelling improved. Chest x-ray, UA and influenza negative. Lower extremities duplex scan is negative for DVT. 2-D echocardiogram was ordered. Normal ejection fraction. Cardiology is following. Nephrology is on board. Workup for chronic kidney disease pending at this time. Outpatient nephrology follow-up. Continue with the current management and follow blood cultures. Prognosis is guarded with multiple medical problems and comorbid conditions. Time with Patient: Greater than 30
[2018-12-03] MEDS: CHOLECALCIFEROL 1,000 UNIT TAB PO SCH (07:50)
[2018-12-03 07:52] LABS: Basophils % (A) 1 %; Eosinophils # (A) 0.1 k/uL (0-0.7); Eosinophils % (A) 2 %; HGB 11.9 gm/dL (13.0-17.5); Hypochromasia Slight; Lymphocytes # (A) 1.4 k/uL (1.0-4.8); Lymphocytes % (A) 20 %; MCH 31.7 pg (25.0-35.0); MCHC 32.2 g/dL (31.0-37.0); MCV 98.5 fL (80.0-100.0); Mean Platelet Volume 7.6; Monocytes # (A) 0.7 k/uL (0-1.0); Monocytes % (A) 10 %; Neutrophils # (A) 4.4 k/uL (1.3-7.7); Neutrophils % (A) 64 %; Platelet Count 134 k/uL (150-450); RBC 3.76 m/uL (4.30-5.90); WBC 6.8 k/uL (3.8-10.6)
[2018-12-03] MEDS: ceFAZolin 1,000 MG in DEXTROSE/WATER 1 50ML.BAG IVPB SCH ×2 (07:56→22:11)
[2018-12-03] MEDS: SODIUM CHLORIDE 0.45% 1,000 ML IV SCH (07:56)
[2018-12-03] MEDS: SODIUM BICARBONATE TAB 650 MG TAB PO SCH ×2 (07:56→22:11)
[2018-12-03 07:57] LABS: Calcium 8.8 mg/dL (8.4-10.2); Potassium 5.5 mmol/L (3.5-5.1)
[2018-12-03] MEDS ORDERED: DEXTROSE 50%-WATER 50 ML SYRINGE IVP STA (09:17)
[2018-12-03] MEDS ORDERED: INSULIN REGULAR 100 UNIT/ML VIAL IV ONE (09:17)
--- NOTE | 2018-12-03 09:19 | P.PN ---
Subjective Patient is seen in follow-up for acute kidney injury on chronic kidney disease. Patient is chronic kidney disease stage IV with baseline creatinine in the range of 2.3-2.6 secondary to nephrosclerosis. GFR at baseline. Currently being treated for right lower extremity cellulitis. No vomiting or diarrhea. Denies chest pain or shortness of breath. He has been waiting. Eager to go home as his is alone. Vital signs are stable. General: The patient appeared well nourished and normally developed. HEENT: Head exam is unremarkable. Neck is without jugular venous distension. LUNGS: Lungs are clear to auscultation and percussion. Breath sounds decreased. HEART: Rate and Rhythm are regular. First and second heart sounds normal. No murmurs, rubs or gallops. ABDOMEN: Abdominal exam reveals normal bowel sounds. Non-tender and non- distended. No evidence of peritonitis. EXTREMITITES: No clubbing, cyanosis, or edema. Right lower extremity erythema noted. Objective - Vital Signs Vital signs: Vital Signs Temp 98.6 F 12/03/18 07:00 Pulse 71 12/03/18 07:00 Resp 17 12/03/18 07:00 BP 143/74 12/03/18 07:00 Pulse Ox 98 12/03/18 07:00 Intake & Output 12/02/18 12/03/18 12/03/18 18:59 06:59 18:59 Intake Total 240 Output Total 200 Balance 240 -200 Intake: Oral 240 Output: Urine 200 Other: Voiding Method Toilet # Voids 1 - Labs CBC & Chem 7: 12/03/18 07:00 12/03/18 07:00 Labs: Abnormal Lab Results - Last 24 Hours (Table) 12/03/18 12/03/18 Range/Units 07:00 07:00 RBC 3.76 L (4.30-5.90) m/uL Hgb 11.9 L (13.0-17.5) gm/dL Hct 37.0 L (39.0-53.0) % Plt Count 134 L (150-450) k/uL Potassium 5.5 H (3.5-5.1) mmol/L Chloride 109 H (98-107) mmol/L BUN 48 H (9-20) mg/dL Creatinine 2.50 H (0.66-1.25) mg/dL Microbiology - Last 24 Hours (Table) 11/28/18 20:45 Blood Culture - Preliminary Blood No Growth after 96 hours Assessment and Plan Plan: Assessment: 1. Acute kidney injury secondary to ATN secondary to infection. Resolved. 2. Chronic kidney disease stage IV secondary to nephrosclerosis with baseline creatinine near 2.3-2.6. GFR at baseline. 3. Proteinuria. Rule out GN. So far the serologies have been negative. 4. Systolic CHF with ejection fraction of 40-45%. Compensated. 5. Right lower extremity cellulitis maintained on antibiotics. 6. Hypertension with chronic kidney disease. Controlled. 7. Metabolic acidosis secondary to chronic kidney disease. Maintain on oral sodium bicarbonate. 8. Mild hyperkalemia secondary to chronic kidney disease. No evidence of hypoglycemia or significant acidosis. Plan: Hep-Lock IV fluids. 10 units of IV insulin with an amp of D50 now. Low potassium diet. Follow-up serologies. Check renal ultrasound. Repeat electrolytes in the morning. Check potassium level this evening.
[2018-12-03] MEDS: HEPARIN SODIUM,PORCINE 5,000 UNIT/ML 1 ML VIAL SQ SCH ×2 (09:46→16:47)
[2018-12-03 10:08] LABS: Glucose,Whole Blood 255 mg/dL (75-99)
--- NOTE | 2018-12-03 11:36 | P.PN ---
Subjective Patient developed erythema to right lower extremity since last visit. Patient continues to be in the care of nephrology. R treating hyperkalemia today. Mental status baseline. Family at bedside discussed case with family. Patient needs to be continued been hospital overnight for further evaluation with nephrology Objective - Vital Signs Vital signs: Vital Signs Temp 98.6 F 12/03/18 07:00 Pulse 71 12/03/18 07:00 Resp 17 12/03/18 08:00 BP 143/74 12/03/18 07:00 Pulse Ox 98 12/03/18 07:00 Intake & Output 12/02/18 12/03/18 12/03/18 18:59 06:59 18:59 Intake Total 240 Output Total 200 Balance 240 -200 Intake: Oral 240 Output: Urine 200 Other: Voiding Method Toilet Toilet # Voids 1 - Constitutional General appearance: Present: mild distress - EENT Eyes: Present: PERRLA Ears: bilateral: normal - Neck Neck: Present: normal ROM - Respiratory Respiratory: bilateral: CTA - Cardiovascular Rhythm: regular - Gastrointestinal General gastrointestinal: Present: soft - Integumentary Integumentary Comment(s): Right lower extremity Integumentary: Present: cellulitis - Neurologic Neurologic: Present: CNII-XII intact - Musculoskeletal Musculoskeletal: Present: gait normal - Psychiatric Psychiatric: Present: A&O x's 3, appropriate affect, intact judgment & insight - Labs CBC & Chem 7: 12/03/18 07:00 12/03/18 07:00 Labs: Abnormal Lab Results - Last 24 Hours (Table) 12/03/18 12/03/18 12/03/18 Range/Units 07:00 07:00 09:54 RBC 3.76 L (4.30-5.90) m/uL Hgb 11.9 L (13.0-17.5) gm/dL Hct 37.0 L (39.0-53.0) % Plt Count 134 L (150-450) k/uL Potassium 5.5 H (3.5-5.1) mmol/L Chloride 109 H (98-107) mmol/L BUN 48 H (9-20) mg/dL Creatinine 2.50 H (0.66-1.25) mg/dL POC Glucose (mg/dL) 255 H (75-99) mg/dL Microbiology - Last 24 Hours (Table) 11/28/18 20:45 Blood Culture - Preliminary Blood No Growth after 96 hours Assessment and Plan Plan: Assessment Altered mental status with metabolic encephalopathy Right lower extremity cellulitis Fever and leukocytosis Mild troponin elevation secondary to infection Acute kidney failure Chronic persistent atrial fibrillation rate controlled Acute on chronic kidney disease stage IV Hyperkalemia History of coronary disease Congestive heart failure systolic ejection fraction of 40-45% Hypertension Osteoarthritis Plan Continue with Cefzil and IV Nephrology treating hyperkalemia Hopeful discharge in next 48 hours pending clearance from nephrology
--- NOTE | 2018-12-03 11:57 | US ---
EXAMINATION TYPE: US kidneys/renal and bladder DATE OF EXAM: 12/03/2018 COMPARISON: NONE CLINICAL HISTORY: cuca. abnormal labs EXAM MEASUREMENTS: Right Kidney: 9.7 x 3.6 x 4.1 cm Left Kidney: 1.0 x 4.7 x 6.9 cm Right Kidney: multiple cystic areas noted, largest seen medially = 2.2cm Left Kidney: multiple cystic areas noted, largest at mid pole = 6.1cm Bladder: not distended IMPRESSION: 1. Simple appearing renal cysts
[2018-12-03 12:25] LABS: Glucose,Whole Blood 147 mg/dL (75-99)
[2018-12-03 14:39] LABS: C-ANCA <1:20 Titer (<1:20); P-ANCA <1:20 Titer (<1:20)
[2018-12-03] MEDS: METOPROLOL TARTRATE 12.5 MG TAB PO SCH (16:48)
[2018-12-03] MEDS: amLODIPine 10 MG TAB PO SCH (16:48)
[2018-12-04] MEDS: HEPARIN SODIUM,PORCINE 5,000 UNIT/ML 1 ML VIAL SQ SCH ×5 (00:30→23:14)
[2018-12-04] MEDS: ACETAMINOPHEN TAB 325 MG TAB PO PRN ×2 (05:20→21:47)
[2018-12-04] MEDS: SODIUM BICARBONATE TAB 650 MG TAB PO SCH ×2 (07:54→20:52)
[2018-12-04] MEDS: ceFAZolin 1,000 MG in DEXTROSE/WATER 1 50ML.BAG IVPB SCH ×2 (07:59→21:06)
[2018-12-04 09:35] LABS: Calcium 8.7 mg/dL (8.4-10.2); Magnesium 1.7 mg/dL (1.6-2.3); Phosphorus 3.5 mg/dL (2.5-4.5); Potassium 5.2 mmol/L (3.5-5.1)
--- NOTE | 2018-12-04 11:12 | P.PN ---
Subjective Patient resting in chair at bedside. States of leg pain has improved. Awaiting recommendations from nephrology for discharge Objective - Vital Signs Vital signs: Vital Signs Temp 98.6 F 12/04/18 07:51 Pulse 66 12/04/18 07:51 Resp 16 12/04/18 08:00 BP 145/79 12/04/18 07:51 Pulse Ox 98 12/04/18 07:51 Intake & Output 12/03/18 12/04/18 12/04/18 18:59 06:59 18:59 Other: Voiding Method Toilet Toilet Toilet # Voids 2 1 - Constitutional General appearance: Present: mild distress, obese - EENT Eyes: Present: PERRLA Ears: bilateral: normal - Neck Neck: Present: normal ROM - Respiratory Respiratory: bilateral: CTA - Cardiovascular Rhythm: regular - Gastrointestinal General gastrointestinal: Present: soft - Integumentary Integumentary Comment(s): Right lower extremity Integumentary: Present: cellulitis - Neurologic Neurologic: Present: CNII-XII intact - Musculoskeletal Musculoskeletal: Present: generalized weakness - Psychiatric Psychiatric: Present: A&O x's 3, appropriate affect, intact judgment & insight - Labs CBC & Chem 7: 12/03/18 07:00 12/04/18 08:03 Labs: Abnormal Lab Results - Last 24 Hours (Table) 12/03/18 12/04/18 Range/Units 12:14 08:03 Potassium 5.2 H (3.5-5.1) mmol/L Chloride 110 H (98-107) mmol/L BUN 46 H (9-20) mg/dL Creatinine 2.52 H (0.66-1.25) mg/dL Glucose 105 H (74-99) mg/dL POC Glucose (mg/dL) 147 H (75-99) mg/dL Microbiology - Last 24 Hours (Table) 11/28/18 20:45 Blood Culture - Preliminary Blood No Growth after 120 hours Assessment and Plan Plan: Assessment Altered mental status with metabolic encephalopathy secondary to infection renal failure Right lower extremity cellulitis extending to the knee improving mild troponin elevation secondary to acute renal failure Chronic persistent atrial fibrillation rate controlled Acute on chronic kidney disease stage IV Hyperkalemia History of coronary disease with stents GERD Osteoarthritis Plan Hopeful discharge soon on antibiotics awaiting nephrology recommendations for discharge
--- NOTE | 2018-12-04 11:36 | P.PN ---
Subjective Patient is seen in follow-up for acute kidney injury on chronic kidney disease. Patient is chronic kidney disease stage IV with baseline creatinine in the range of 2.3-2.6 secondary to nephrosclerosis. GFR at baseline. Currently being treated for right lower extremity cellulitis. No vomiting or diarrhea. Denies chest pain or shortness of breath. He has been waiting. Eager to go home. No active complaints at this time. Vital signs are stable. General: The patient appeared well nourished and normally developed. HEENT: Head exam is unremarkable. Neck is without jugular venous distension. LUNGS: Lungs are clear to auscultation and percussion. Breath sounds decreased. HEART: Rate and Rhythm are regular. First and second heart sounds normal. No murmurs, rubs or gallops. ABDOMEN: Abdominal exam reveals normal bowel sounds. Non-tender and non- distended. No evidence of peritonitis. EXTREMITITES: No clubbing, cyanosis, or edema. Right lower extremity erythema noted. Objective - Vital Signs Vital signs: Vital Signs Temp 98.6 F 12/04/18 07:51 Pulse 66 12/04/18 07:51 Resp 16 12/04/18 08:00 BP 145/79 12/04/18 07:51 Pulse Ox 98 12/04/18 07:51 Intake & Output 12/03/18 12/04/18 12/04/18 18:59 06:59 18:59 Other: Voiding Method Toilet Toilet Toilet # Voids 2 1 - Labs CBC & Chem 7: 12/03/18 07:00 12/04/18 08:03 Labs: Abnormal Lab Results - Last 24 Hours (Table) 12/03/18 12/04/18 Range/Units 12:14 08:03 Potassium 5.2 H (3.5-5.1) mmol/L Chloride 110 H (98-107) mmol/L BUN 46 H (9-20) mg/dL Creatinine 2.52 H (0.66-1.25) mg/dL Glucose 105 H (74-99) mg/dL POC Glucose (mg/dL) 147 H (75-99) mg/dL Microbiology - Last 24 Hours (Table) 11/28/18 20:45 Blood Culture - Preliminary Blood No Growth after 120 hours Assessment and Plan Plan: Assessment: 1. Acute kidney injury secondary to ATN secondary to infection. Resolved. 2. Chronic kidney disease stage IV secondary to nephrosclerosis with baseline creatinine near 2.3-2.6. GFR at baseline. No evidence of hydronephrosis noted on renal ultrasound. 3. Proteinuria. Rule out GN. So far the serologies have been negative. 4. Systolic CHF with ejection fraction of 40-45%. Compensated. 5. Right lower extremity cellulitis maintained on antibiotics. 6. Hypertension with chronic kidney disease. Controlled. 7. Metabolic acidosis secondary to chronic kidney disease. Maintained on oral sodium bicarbonate. Better. 8. Mild hyperkalemia secondary to chronic kidney disease. No evidence of hypoglycemia or significant acidosis. Better. Plan: Maintain low potassium diet. Due to persistent proteinuria, will schedule for kidney biopsy which can be done as an outpatient. Stable to be discharged home from nephrology standpoint. Follow up outpatient in the next 1-2 weeks. Follow-up urine immunofixation.
[2018-12-04] MEDS: amLODIPine 10 MG TAB PO SCH (16:30)
[2018-12-04] MEDS: METOPROLOL TARTRATE 12.5 MG TAB PO SCH (16:30)
[2018-12-05 08:45] VITALS: BP 156/90; PULSE 68; RESP 16; TEMP 98
[2018-12-05] MEDS: HEPARIN SODIUM,PORCINE 5,000 UNIT/ML 1 ML VIAL SQ SCH (09:33)
[2018-12-05] MEDS: CHOLECALCIFEROL 1,000 UNIT TAB PO SCH (09:36)
[2018-12-05] MEDS: ceFAZolin 1,000 MG in DEXTROSE/WATER 1 50ML.BAG IVPB SCH (09:36)
[2018-12-05] MEDS: SODIUM BICARBONATE TAB 650 MG TAB PO SCH (09:36)
--- NOTE | 2018-12-05 10:54 | P.DS ---
Providers Date of admission: 11/29/18 10:10 Expected date of discharge: 12/05/18 Attending physician: Osvaldo Robbins Consults: 11/29/18 13:35 Consult Physician Urgent Consulting Provider: Wellington Turner Consult Reason/Comments: elevated troponin afib Do you want consulting provider notified?: Yes 11/29/18 13:36 Consult Physician Urgent Consulting Provider: Ann Elise Consult Reason/Comments: renal failure Do you want consulting provider notified?: Yes Primary care physician: Osvaldo Robbins Hospital Course: 83-year-old patient was admitted to the emergency room with altered mental status and fever of undetermined origin. He was found that he had cellulitis right leg developed redness and swelling in during hospital stay. Patient had elevated troponins and history of atrial fib was consult to 2 cardiology. Patient also on developed acute renal failure nephrology was consult and stabilized and cleared for discharge Assessment Altered mental status with metabolic encephalopathy due to infection renal failure improved to baseline Right lower extremity cellulitis Fever and leukocytosis related to above Chronic persistent atrial fibrillation controlled rate Acute on chronic kidney disease stage IV Hyperkalemia History of coronary disease with stents History of congestive heart failure systolic ejection fraction 40-45% GERD Hypertension Osteoarthritis Plan Patient is follow-up with family physician Dr. Osvaldo Robbins We'll be started on oral Ceftin for 2 weeks Patient is to follow-up with nephrology for kidney biopsy Patient Condition at Discharge: Serious Plan - Discharge Summary Discharge Rx Participant: Yes New Discharge Prescriptions: New Acetaminophen Tab [Tylenol] 650 mg PO Q6HR PRN tab PRN Reason: Mild Pain Or Fever > 100.5 Cefuroxime Axetil [Ceftin] 500 mg PO BID 14 Days #28 tab Sodium Bicarbonate Tab 650 mg PO BID 30 Days #60 tab Continue amLODIPine BESYLATE [Norvasc] 10 mg PO W/SUPPER Metoprolol Tartrate [Lopressor] 12.5 mg PO W/SUPPER Cholecalciferol [Vitamin D3] 2,000 unit PO DAILY Ubidecarenone [Co Q-10] 100 mg PO DAILY Oil Of Oregano 5 - 10 drops PO DAILY Cyanocobalamin [Vitamin B-12] 500 mcg PO DAILY Discharge Medication List Cholecalciferol [Vitamin D3] 2,000 unit PO DAILY 01/06/16 [History] Metoprolol Tartrate [Lopressor] 12.5 mg PO W/SUPPER 01/06/16 [History] Ubidecarenone [Co Q-10] 100 mg PO DAILY 01/06/16 [History] amLODIPine BESYLATE [Norvasc] 10 mg PO W/SUPPER 01/06/16 [History] Cyanocobalamin [Vitamin B-12] 500 mcg PO DAILY 02/03/16 [History] Oil Of Oregano 5 - 10 drops PO DAILY 02/03/16 [History] Acetaminophen Tab [Tylenol] 650 mg PO Q6HR PRN tab 12/05/18 [Rx] Cefuroxime Axetil [Ceftin] 500 mg PO BID 14 Days #28 tab 12/05/18 [Rx] Sodium Bicarbonate Tab 650 mg PO BID 30 Days #60 tab 12/05/18 [Rx] Follow up Appointment(s)/Referral(s): Osvaldo Robbins MD [Primary Care Provider] - 1-2 days Ventura Adhikari MD [STAFF PHYSICIAN] - 2 Weeks [facility], [NON-STAFF] - As Needed Román Lam DO [STAFF PHYSICIAN] - 1 Week Discharge Disposition: HOME SELF-CARE
--- NOTE | 2018-12-05 11:47 | P.PN ---
Subjective Patient is seen in follow-up for acute kidney injury on chronic kidney disease. Patient is chronic kidney disease stage IV with baseline creatinine in the range of 2.3-2.6 secondary to nephrosclerosis. GFR at baseline. Currently being treated for right lower extremity cellulitis. No vomiting or diarrhea. Denies chest pain or shortness of breath. He has been voiding. Eager to go home. No active complaints at this time. Vital signs are stable. General: The patient appeared well nourished and normally developed. HEENT: Head exam is unremarkable. Neck is without jugular venous distension. LUNGS: Lungs are clear to auscultation and percussion. Breath sounds decreased. HEART: Rate and Rhythm are regular. First and second heart sounds normal. No murmurs, rubs or gallops. ABDOMEN: Abdominal exam reveals normal bowel sounds. Non-tender and non- distended. No evidence of peritonitis. EXTREMITITES: No clubbing, cyanosis, or edema. Right lower extremity erythema noted. Objective - Vital Signs Vital signs: Vital Signs Temp 98.0 F 12/05/18 08:16 Pulse 68 12/05/18 08:16 Resp 16 12/05/18 08:16 BP 156/90 12/05/18 08:16 Pulse Ox 99 12/05/18 08:16 Intake & Output 12/04/18 12/05/18 12/05/18 18:59 06:59 18:59 Intake Total 50 Balance 50 Intake: Intake, IV Titration 50 Amount ceFAZolin 1,000 mg In 50 Dextrose/Water 1 50ml.bag @ 100 mls/hr IVPB Q12HR [facility] Rx#:[id number] Other: Voiding Method Toilet Toilet # Voids 1 2 - Labs CBC & Chem 7: 12/03/18 07:00 12/04/18 08:03 Labs: Microbiology - Last 24 Hours (Table) 11/28/18 20:45 Blood Culture - Final Blood No Growth after 144 hours Assessment and Plan Plan: Assessment: 1. Acute kidney injury secondary to ATN secondary to infection. Resolved. 2. Chronic kidney disease stage IV secondary to nephrosclerosis with baseline creatinine near 2.3-2.6. GFR at baseline. No evidence of hydronephrosis noted on renal ultrasound. 3. Proteinuria. Rule out GN. Serologies have been negative. 4. Systolic CHF with ejection fraction of 40-45%. Compensated. 5. Right lower extremity cellulitis maintained on antibiotics. 6. Hypertension with chronic kidney disease. Controlled. 7. Metabolic acidosis secondary to chronic kidney disease. Maintained on oral sodium bicarbonate. Better. 8. Mild hyperkalemia secondary to chronic kidney disease. No evidence of hypoglycemia or significant acidosis. Better. Plan: Maintain low potassium diet. Due to persistent proteinuria, will schedule for kidney biopsy down the road. Patient wants to hold off at this time as his has a surgery next week. Stable to be discharged home from nephrology standpoint. Follow up outpatient in the next 1-2 weeks.
== END 2018-12-05 12:04 | disposition home health service (06) | DRG 602 ==
LOC: EC 20:00 → INTOOBSV 11-29 04:01 → OBSVTOIN 11-29 04:01 → 4SSUR 11-29 04:01 → OBSVTOIN 11-29 10:10
PROVIDERS: ADMIT Family Medicine; ATTEND Family Medicine
DX: L03.115 Cellulitis of right lower limb (principal); G93.41 Metabolic encephalopathy; N17.0 Acute kidney failure with tubular necrosis; N18.4 Chronic kidney disease, stage 4 (severe); I48.1 Persistent atrial fibrillation; I50.22 Chronic systolic (congestive) heart failure; I13.0 Hypertensive heart and chronic kidney disease with heart failure and stage 1 through stage 4 chronic kidney disease, or unspecified chronic kidney disease; I42.9 Cardiomyopathy, unspecified; J98.11 Atelectasis; E87.2 Acidosis; G62.9 Polyneuropathy, unspecified; E87.5 Hyperkalemia; N28.1 Cyst of kidney, acquired; M19.90 Unspecified osteoarthritis, unspecified site; K21.9 Gastro-esophageal reflux disease without esophagitis; K57.90 Diverticulosis of intestine, part unspecified, without perforation or abscess without bleeding; E66.9 Obesity, unspecified; Z68.33 Body mass index [BMI] 33.0-33.9, adult; R74.8 Abnormal levels of other serum enzymes; I25.10 Atherosclerotic heart disease of native coronary artery without angina pectoris; N27.1 Small kidney, bilateral; Z53.29 Procedure and treatment not carried out because of patient's decision for other reasons; Z79.899 Other long term (current) drug therapy; Z87.442 Personal history of urinary calculi; Z87.01 Personal history of pneumonia (recurrent); Z98.42 Cataract extraction status, left eye; Z98.41 Cataract extraction status, right eye; Z96.1 Presence of intraocular lens; Z87.891 Personal history of nicotine dependence; Z95.5 Presence of coronary angioplasty implant and graft; Z90.49 Acquired absence of other specified parts of digestive tract; Z87.11 Personal history of peptic ulcer disease; Z80.9 Family history of malignant neoplasm, unspecified
CPT/HCPCS: 36415; 70450; 71046; 74176; 76770; 80048; 80053; 80061; 81001; 82550; 82553; 82570; 83605; 83735; 84100; 84132; 84156; 84484; 85025; 85610; 85730; 86038; 86160; 86225; 86255; 86335; 86706; 86803; 87040; 87086; 87340; 87502; 93005; 93306; 94760; 96360; 99285

== ENCOUNTER → 2019-04-17 | Outpatient (CLI) | payer MEDICARE ==
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
--- NOTE | 2019-04-17 16:02 | XR ---
EXAMINATION TYPE: XR cervical spine comp DATE OF EXAM: 04/17/2019 TECHNIQUE: Frontal , open-mouth and lateral views of the cervical spine are obtained. HISTORY: M54.2 M79.605 R10.2 COMPARISON: None FINDINGS: The cervical spine is visualized in its entirety from C1 thru the top of T1 level, it is s atisfactory in alignment without evidence of acute fracture or dislocation. There is straightening of usual cervical lordosis. Multilevel intervertebral disc space narrowing, endplate sclerosis, anterio r osteophytes, facet arthropathy and uncovertebral hypertrophy are seen. The pre-vertebral soft tissu e appears within normal limits. The C1-C2 articulation is within normal limits on the open mouth vie w. Incidentally noted atherosclerosis of the carotid arteries. IMPRESSION: No acute fracture or dislocation is seen in the cervical spine. Extensive multilevel deg enerative disc disease. Straightening of usual cervical lordosis that may be on the basis of muscular sprain/spasm or patient positioning.
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
== END | disposition home or self-care (01) ==
LOC: RADXRMAIN 15:20
PROVIDERS: ATTEND Physician Assistant
DX: M50.30 Other cervical disc degeneration, unspecified cervical region (principal); M40.40 Postural lordosis, site unspecified; M79.605 Pain in left leg; R10.2 Pelvic and perineal pain
CPT/HCPCS: 72050; 72170

== ENCOUNTER → 2019-05-02 | Outpatient (CLI) | payer MEDICARE ==
--- NOTE | 2019-05-02 16:05 | US ---
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 Stenosis EXAM MEASUREMENTS: RIGHT: Peak Systolic Velocity (PSV) cm/sec ----- Right CCA: 37.6 ----- Right ICA: 52.5 ----- Right ECA: 74.8 ICA/CCA ratio: 1.4 RIGHT: End Diastole cm/sec ----- Right CCA: 0.0 ----- Right ICA: 17.1 ----- Right ECA: 9.3 LEFT: Peak Systolic Velocity (PSV) cm/sec ----- Left CCA: 51.0 ----- Left ICA: 56.4 ----- Left ECA: 90.4 ICA/CCA ratio: 1.1 LEFT: End Diastole cm/sec ----- Left CCA: 9.9 ----- Left ICA: 18.4 ----- Left ECA: 0.0 VERTEBRALS (direction of flow): Right Vertebral: Antegrade Left Vertebral: Antegrade Rhythm: Arrhythmia Bilateral intimal thickening, plaque bilateral bulb, no elevated velocities, no significant stenosis. IMPRESSION: 1. Mild degree of grayscale atheromatous plaquing with no sonographically evident hemodynamically sig nificant stenosis within either visualized carotid arterial system.. 2. Incidentally noted cardiac arrhythmia. Correlate with EKG. Criteria for Assigning % of Stenosis / Diameter reduction (Estimation based on the indirect measurements of the internal carotid artery velocities (ICA PSV). 1. Normal (no stenosis)=ICA PSV < 125 cm/s: ratio < 2.0: ICA EDV<40 cm/s. 2. Less than 50% stenosis=ICA PSV < 125 cm/s: ratio < 2.0: ICA EDV<40 cm/s. 3. 50 to 69% stenosis=ICA PSV of 125 to 230 cm/s: ration 2.0 ? 4.0: ICA EDV 40-100 cm/s. 4. Greater than 70% stenosis to near occlusion= ICA PSV > 230 cm/s: ratio > 4.0: ICA EDV > 100 cm/s. 5. Near occlusion= ICA PSV velocities may be low or undetectable: variable ratio and ICA EDV. 6. Total occlusion=unable to detect flow.
== END | disposition home or self-care (01) ==
LOC: RADUSWWP 14:40
PROVIDERS: ATTEND Family Medicine
DX: I77.89 Other specified disorders of arteries and arterioles (principal)
CPT/HCPCS: 93880

== ENCOUNTER → 2019-08-02 | Outpatient (CLI) | payer MEDICARE ==
--- NOTE | 2019-08-02 09:25 | XR ---
EXAMINATION TYPE: XR Hip Complete RT DATE OF EXAM: 08/02/2019 CLINICAL HISTORY: Right hip pain. TECHNIQUE: AP and frogleg views of the right hip are obtained. COMPARISON: Pelvic x-ray April 17, 2019. FINDINGS: There is no acute fracture/dislocation evident in the right hip. Stable mild axial joint s pace loss and right hip. No significant spurring or subchondral cystic change. Overlying clothing mat erial is present. IMPRESSION: As above.
--- NOTE | 2019-08-02 10:26 | MR ---
EXAMINATION TYPE: MR cervical spine wo con DATE OF EXAM: 08/02/2019 COMPARISON: None HISTORY: Cervicalgia CONTRAST: Performed utilizing 0 mL intravenous Gadavist gadolinium contrast. TECHNIQUE: Multiplanar multiecho imaging on a 3.0 Windy magnet is performed through the cervical spin e. FINDINGS: The craniovertebral junction is normal. There is straightening of the vertebral alignment i n the sagittal plane. Some subtle kyphosis within the mid cervical spine is not entirely excluded. Di sc desiccation is present throughout the cervical spine. Vertebral body heights and disc heights appe ar preserved. C7-T1: There is mild central focal bulging with mild anterior thecal sac compression. No cord contac t is evident. No spinal canal stenosis present. There is moderate foraminal narrowing from uncoverteb ral joint hypertrophy. Some facet hypertrophy as posterior lateral thecal sac impression. C6-7: Broad-based disc bulges moderate anterior thecal sac compression. No spinal canal stenosis is p resent. No cord contact or cord deformity is evident. Uncovertebral joint hypertrophy is moderate to severe bilateral foraminal stenosis.. C5-6: There is broad base disc bulging at C5-6. A more focal cysts right paracentral disc herniation is present with moderate anterior thecal sac impression. This has cord contact and some cord deformit y. This has some mild spinal canal stenosis posterior to this disc herniation. Uncovertebral joint hy pertrophy with disc bulging as well as moderate bilateral foraminal stenosis.. C4-5: Broad-based disc bulge has moderate intrathecal sac impression. Cord contact and some cord flat tening is present. Spinal canal stenosis. Severe bilateral foraminal stenosis from uncovertebral join t hypertrophy is present.. C3-4: There is a small central protrusion with mild anterior thecal sac compression. No AP spinal can al stenosis present. Neural foramen and mild narrowing. There is uncovertebral joint hypertrophy.. C2-3: No focal disc herniation or significant disc bulge is evident. No spinal canal stenosis or srinivas ral foraminal stenosis is present. IMPRESSIONS: 1. Spinal canal stenosis C5-6 and C4-5 due to disc bulging. This is broad-based C4-5 with mild cord c ontact and flattening. At C5-6 as is right paracentral focal disc bulging with moderate cord contact and deformity. 2. Disc desiccation throughout the cervical spine. 3. Multilevel uncovertebral joint hypertrophy contributing to foraminal stenosis throughout the cervi taryn spine
== END | disposition home or self-care (01) ==
LOC: RADMRIMAIN 08:45
PROVIDERS: ATTEND Physician Assistant
DX: M48.02 Spinal stenosis, cervical region (principal); M50.221 Other cervical disc displacement at C4-C5 level; M43.8X2 Other specified deforming dorsopathies, cervical region; M25.851 Other specified joint disorders, right hip
CPT/HCPCS: 72141; 73502

== ENCOUNTER → 2019-09-09 | Outpatient (CLI) | payer MEDICARE ==
--- NOTE | 2019-09-09 12:29 | MR ---
EXAMINATION TYPE: MR lumbar spine wo con DATE OF EXAM: 09/09/2019 COMPARISON: NONE HISTORY: Low back pain TECHNIQUE: T1 and T2 axial and sagittal images of the lumbar spine are submitted. FINDINGS: There is no abnormal signal seen within the visualized spinal cord. Bilateral renal cysts a re noted. At L1-2 there is severe degenerative disc disease with broad-based central disc protrusion or herniat ion resulting in compression of the thecal sac. No contact of the spinal cord. Mild to moderate canal stenosis with moderate bilateral foraminal encroachment. At L2-3 there is severe degenerative disc disease with central disc herniation capped by spur. Facet arthropathy and uncovertebral joint hypertrophy result in severe canal stenosis and bilateral foramin al encroachment. At L3-4 there is severe degenerative disc disease with severe bilateral foraminal encroachment. Poste rior spurring with disc protrusion broad-based small herniation results in severe canal stenosis. 2 m m area of signal seen posterior lateral to the left thecal sac may represent tiny extruded disc fragm ent. At L4-5 there is severe degenerative disc disease with broad-based disc herniation greater paracentra lly to the left. Severe bilateral foraminal encroachment greater on the left. Facet arthropathy and l igamentum flavum hypertrophy contribute to severe canal stenosis. At L5-S1 there is broad-based disc protrusion with effacement of the thecal sac. Facet arthropathy an d ligamentum flavum hypertrophy noted with moderate to severe bilateral foraminal encroachment and mo derate canal stenosis. IMPRESSION: 1. Severe degenerative disc disease at all levels with multilevel severe canal stenosis and foraminal encroachment as discussed above. Tiny extruded disc fragment posterior lateral to the left of the th ecal sac at L3-L4 not excluded. 2. Multiple bilateral renal cysts.
== END | disposition home or self-care (01) ==
LOC: RADMRIMAIN 08:26
PROVIDERS: ATTEND Orthopaedic Surgery Orthopaedic Surgery of the Spine
DX: M48.061 Spinal stenosis, lumbar region without neurogenic claudication (principal); M51.16 Intervertebral disc disorders with radiculopathy, lumbar region
CPT/HCPCS: 72148

== ENCOUNTER → 2019-10-04 | Outpatient (CLI) | payer MEDICARE ==
[2019-10-04 11:33] LABS: Basophils % (A) 1 %; Eosinophils # (A) 0.2 k/uL (0-0.7); Eosinophils % (A) 3 %; HCT 37.3 % (39.0-53.0); HGB 12.2 gm/dL (13.0-17.5); Lymphocytes # (A) 1.4 k/uL (1.0-4.8); Lymphocytes % (A) 27 %; MCH 32.3 pg (25.0-35.0); MCHC 32.8 g/dL (31.0-37.0); MCV 98.8 fL (80.0-100.0); Mean Platelet Volume 7.4; Monocytes # (A) 0.3 k/uL (0-1.0); Monocytes % (A) 6 %; Neutrophils # (A) 3.1 k/uL (1.3-7.7); Neutrophils % (A) 60 %; Platelet Count 162 k/uL (150-450); RBC 3.78 m/uL (4.30-5.90); RDW 14.2 % (11.5-15.5); WBC 5.1 k/uL (3.8-10.6)
[2019-10-04 11:55] LABS: Appearance,Urine Clear (Clear); Bilirubin,Urine Negative (Negative); Blood,Urine Trace (Negative); Color,Urine Yellow; Glucose,Urine (UA) Negative (Negative); Ketones,Urine Negative (Negative); Leukocyte Esterase,Urine Negative (Negative); Mucus,Urine Rare /hpf; Nitrite,Urine Negative (Negative); PH, Urine 5.5 (5.0-8.0); Protein,Urine 2+ (Negative); RBC,Urine 1 /hpf (0-5); Specific Gravity,Urine 1.014 (1.001-1.035); Squamous Epithelial Cell,Urine <1 /hpf (0-4); Urobilinogen,Urine <2.0 mg/dL (<2.0); WBC,Urine 1 /hpf (0-5)
[2019-10-04 16:13] LABS: Albumin 4.1 g/dL (3.80-4.90); Albumin/Globulin Ratio 2.05 (1.60-3.17); Anion Gap 8.6 mmol/L (4.00-12.00); BUN/Creat Ratio 15.36 Ratio (12.00-20.00); Calcium 8.8 mg/dL (8.7-10.3); Carbon Dioxide 20.4 mmol/L (21.6-31.8); Non-African American GFR(CKD) 19.8 (60.0-200.0); Phosphorus 3.5 mg/dL (2.4-5.1); Potassium 4.8 mmol/L (3.5-5.5); Total Bilirubin 0.4 mg/dL (0.3-1.2); Total Protein 6.1 g/dL (6.2-8.2)
== END | disposition home or self-care (01) ==
LOC: LABWHC1 10:45
PROVIDERS: ATTEND Family Medicine
DX: N18.9 Chronic kidney disease, unspecified (principal)
CPT/HCPCS: 36415; 80053; 81001; 84100; 85025

== ENCOUNTER → 2020-10-05 | Outpatient (CLI) | payer MEDICARE, OTHER ==
--- NOTE | 2020-10-05 15:41 | US ---
EXAMINATION TYPE: US kidneys/renal and bladder DATE OF EXAM: 10/05/2020 COMPARISON: CT November 29, 2018. Renal ultrasound December 03, 2018 CLINICAL HISTORY: N18.4 chronic kidney disease, stage 4 severe. EXAM MEASUREMENTS: Right Kidney: 10.5 x 3.7 x 4.1 cm Left Kidney: 11.0 x 4.1 x 4.8 cm Right Kidney: multiple cysts largest measuring 2.5 x 2.3 x 2.3cm, cortical thinning Left Kidney: multiple cysts largest measuring 4.2 x 4.6 x 5.8cm, cortical thinning Bladder: not well seen, patient unable to fill There is no evidence for hydronephrosis at this point in time. Increased Cortical echogenicity bilate rally. No nephrolithiasis is seen. Scattered benign thin-walled cysts bilaterally of varying size and shape redemonstrated. The urinary bladder is poorly visualized on images today. Bilateral ureteral jets are not seen. IMPRESSION: Evidence of chronic medical renal disease redemonstrated. No hydronephrosis noted bilater ally.
== END | disposition home or self-care (01) ==
LOC: RADUSWWP 15:01
PROVIDERS: ATTEND Family Medicine
DX: N18.4 Chronic kidney disease, stage 4 (severe) (principal)
CPT/HCPCS: 76770

== ENCOUNTER → 2020-12-09 | Outpatient (CLI) | payer MEDICARE, OTHER ==
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
== END ==
LOC: RADMRIMAIN 14:50
PROVIDERS: ATTEND Orthopaedic Surgery Orthopaedic Surgery of the Spine
DX: M50.123 Cervical disc disorder at C6-C7 level with radiculopathy (principal); M47.22 Other spondylosis with radiculopathy, cervical region
CPT/HCPCS: 72141

== ENCOUNTER → 2020-12-31 | Outpatient (CLI) | payer MEDICARE, OTHER | END | disposition home or self-care (01) | LOC: LABWHC1 16:38 | PROVIDERS: ATTEND Family Medicine | DX: Z20.822 Contact with and (suspected) exposure to COVID-19 (principal) | CPT/HCPCS: U0003; C9803; U0005 ==

== ENCOUNTER 2021-01-02 10:00 | Emergency (ER) | payer MEDICARE, OTHER ==
[2021-01-02 10:10] VITALS: RESP 18
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
--- NOTE | 2021-01-02 10:48 | XR ---
EXAMINATION TYPE: XR chest 2V DATE OF EXAM: 01/02/2021 COMPARISON: 11/28/2018 HISTORY: Shortness of breath TECHNIQUE: Frontal and lateral views of the chest are obtained. FINDINGS: Scattered senescent parenchymal changes noted. Hyperinflation compatible with COPD. No evidence for infiltrate. No evidence for atelectasis. Heart size is stable. Mediastinal structures are stable and grossly unremarkable. No evidence for hilar prominence. Degenerative changes dorsal spine. IMPRESSION: 1. No evidence for acute pulmonary disease.
[2021-01-02] MEDS ORDERED: BAMLANIVIMAB 700 MG in SODIUM CHLORIDE 0.9% 50 ML IVPB ONE (12:00)
[2021-01-02 13:42] VITALS: BP 163/91; PULSE 63; TEMP 98.7
== END 2021-01-02 13:43 | disposition home or self-care (01) ==
LOC: EC 10:00
DX: U07.1 COVID-19 (principal)
CPT/HCPCS: 99283; 96374; 71046; Q0239

== ENCOUNTER → 2021-04-20 | Outpatient (CLI) | payer MEDICARE, OTHER ==
--- NOTE | 2021-04-20 14:29 | XR ---
EXAMINATION TYPE: XR chest 2V DATE OF EXAM: 04/20/2021 COMPARISON: 01/02/2021 HISTORY: Dyspnea on exertion TECHNIQUE: Frontal and lateral views of the chest are obtained. FINDINGS: There is no focal air space opacity, pleural effusion, or pneumothorax seen. The cardiac silhouette size is within normal limits. The osseous structures are intact. IMPRESSION: No acute cardiopulmonary process.
== END | disposition home or self-care (01) ==
LOC: RADXRMAIN 10:36
PROVIDERS: ATTEND Family Medicine
DX: R06.09 Other forms of dyspnea (principal)
CPT/HCPCS: 71046

== ENCOUNTER 2021-07-28 17:49 | Emergency (ER) | payer MEDICARE, OTHER ==
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
[2021-07-28] MEDS ORDERED: HYDROcodone/APAP 5-325MG 1 EACH TAB PO STA (20:00)
--- NOTE | 2021-07-28 20:31 | CT ---
EXAMINATION TYPE: CT thoracic spine wo con DATE OF EXAM: 07/28/2021 COMPARISON: None HISTORY: fall, pain CT DLP: 599.6 mGycm Automated exposure control for dose reduction was used. FINDINGS: There is diffuse osteopenia. There is hypertrophic spurring throughout the vertebral column. There is severe multilevel degenerative disc disease. Assessment spinal canal nondiagnostic due to artifact a nd resolution. Hypertrophic spurring and scoliosis noted. There is a small right-sided pleural effusion cardiomegaly and coronary artery calcification noted. A therosclerotic change of the aorta. Nondiagnostic assessment spinal canal due to resolution and artif act. Indeterminate right renal lesion measuring 25 Hounsfield units. IMPRESSION: MULTILEVEL SEVERE DEGENERATIVE DISC DISEASE AND HYPERTROPHIC SPURRING WITH NO DEFINITE ACUTE FRACTURE . ASSESSMENT SPINAL CANAL IS LIMITED. THERE IS A RIGHT-SIDED PLEURAL EFFUSION CORRELATE CLINICALLY. INDETERMINATE RIGHT RENAL LESION MEASURING 25 HOUNSFIELD UNITS DOES NOT MEET THE CRITERIA OF SIMPLE C YST CONSIDER SHORT-TERM FOLLOW-UP ULTRASOUND.
--- NOTE | 2021-07-28 20:37 | XR ---
EXAMINATION TYPE: XR Hip LT and AP Pelvis DATE OF EXAM: 07/28/2021 COMPARISON: NONE HISTORY: Pain TECHNIQUE: A single AP view of the pelvis is obtained. Two views of the left hip are obtained. FINDINGS: Degenerative change lower lumbar spine. SI joints symmetric. There is arthropathy of the hi ps. Metallic density overlying the right inferior pubic ramus nonspecific could be related to somethi ng superficial to the patient or foreign body on a chronic basis. Arthropathy of the hips bilaterally and hypertrophic arthropathy of the SI joints. No acute fracture or dislocation. IMPRESSION: 1. No acute fracture or dislocation. 2. Hip arthropathy
--- NOTE | 2021-07-28 20:43 | CT ---
EXAMINATION TYPE: CT brain alfredine wo con DATE OF EXAM: 07/28/2021 COMPARISON: 11/29/2018 HISTORY: fall TECHNIQUE: CT scan of the head and cervical spine without contrast CT DLP: 1551.1 mGycm Automated exposure control for dose reduction was used. FINDINGS: No acute intracranial hemorrhage midline shift or mass effect. Sims-white matter differentiation is p reserved. There is advanced brain volume loss, chronic microvascular ischemic related changes in scattered bila teral lacunar infarcts. There is prominence of the CSF spaces and ventricles in keeping with brain vo lume loss. No air-fluid levels in the paranasal sinuses or mastoid air cell effusion seen. No acute orbital, osseous or soft tissue abnormalities seen. There is a small fat-containing lesion over the right parietal skull. There is straightening of the cervical curvature. Vertebral body heights are maintained. Posterior el ements are acutely intact. No definite acute fracture or dislocation identified. There is mild soft t issue swelling posterior to the upper cervical spine. There are advanced degenerative changes in the cervical spine including narrowing of the intervertebr al spaces, disc osteophyte complexes, uncovertebral facet joint arthropathy and anterior bony spurrin g. There is a 2.3 x 1.4 cm lymph node the left submandibular region (series [id number] image [id number]). There are add itional prominent and mildly enlarged lymph nodes on the right side in the submandibular region. There are atherosclerotic calcifications in the intracranial internal carotid arteries, vertebrobasil ar arteries and in the common carotid arteries in the neck in addition to the aortic arch. 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 IMPRESSION: 1. NO EVIDENCE FOR ACUTE INTRACRANIAL HEMORRHAGE MIDLINE SHIFT OR MASS EFFECT. 2. NO DEFINITE ACUTE FRACTURE IN THE CERVICAL SPINE THOUGH EVALUATION IS SOMEWHAT SUBOPTIMAL DUE TO E XTENSIVE DEGENERATIVE CHANGES. 3. ENLARGED BILATERAL SUBMANDIBULAR LYMPH NODES THE LARGEST ON THE LEFT MEASURING 2.3 X 1.4 CM. 4. PLEASE SEE BODY OF REPORT FOR INCIDENTAL/CHRONIC FINDINGS IN THE CT HEAD AND CT CERVICAL SPINE
[2021-07-28 22:35] VITALS: BP 171/94; PULSE 94; RESP 18; TEMP 97.9
== END 2021-07-28 22:15 | disposition home or self-care (01) ==
LOC: EC 17:49
DX: M54.9 Dorsalgia, unspecified (principal); I10 Essential (primary) hypertension; I48.91 Unspecified atrial fibrillation; K21.9 Gastro-esophageal reflux disease without esophagitis; M19.90 Unspecified osteoarthritis, unspecified site; Z87.442 Personal history of urinary calculi; Z90.49 Acquired absence of other specified parts of digestive tract; Z90.89 Acquired absence of other organs
CPT/HCPCS: 70450; 72125; 72128; 73502; 99284

== ENCOUNTER 2021-08-05 14:26 | Inpatient (IN) | payer MEDICARE, OTHER ==
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
[2021-08-05 16:06] LABS: Basophils % (A) 1 %; Eosinophils # (A) 0.1 k/uL (0-0.7); Eosinophils % (A) 2 %; HCT 31.5 % (39.0-53.0); HGB 9.9 gm/dL (13.0-17.5); Lymphocytes # (A) 0.6 k/uL (1.0-4.8); Lymphocytes % (A) 11 %; MCH 31.8 pg (25.0-35.0); MCHC 31.5 g/dL (31.0-37.0); MCV 100.8 fL (80.0-100.0); Macrocytosis Slight; Mean Platelet Volume 8.7; Monocytes # (A) 0.4 k/uL (0-1.0); Monocytes % (A) 7 %; Neutrophils # (A) 4.1 k/uL (1.3-7.7); Neutrophils % (A) 77 %; Platelet Count 126 k/uL (150-450); RBC 3.13 m/uL (4.30-5.90); RDW 14.8 % (11.5-15.5); WBC 5.3 k/uL (3.8-10.6)
[2021-08-05] MEDS ORDERED: ACETAMINOPHEN TAB 500 MG TAB PO STA (16:12)
[2021-08-05 16:18] LABS: Calcium 8.7 mg/dL (8.4-10.2)
[2021-08-05 16:21] LABS: Potassium 6.8 mmol/L (3.5-5.1)
[2021-08-05] MEDS ORDERED: SODIUM POLYSTYRENE SULFONATE 15 GM/60 ML BOTTLE PO ONE (16:59)
[2021-08-05] MEDS ORDERED: INSULIN REGULAR 100 UNIT/ML VIAL (IV) IV ONE (16:59)
[2021-08-05] MEDS ORDERED: DEXTROSE 50% SYRINGE 50 ML IVP ONE (16:59)
[2021-08-05] MEDS ORDERED: NALOXONE 0.4 MG/ML 1 ML VIAL IV PRN (17:12)
--- NOTE | 2021-08-05 17:24 | XR ---
EXAMINATION TYPE: XR chest 2V DATE OF EXAM: 08/05/2021 COMPARISON: 04/20/2021 HISTORY: Shortness of breath TECHNIQUE: Frontal and lateral views of the chest are obtained. FINDINGS: Scattered senescent parenchymal changes noted. Hyperinflation compatible with COPD. Right infrahilar infiltrate may reflect developing pneumonia. Correlate clinically. Heart size is stable. Mediastinal structures are stable and grossly unremarkable. No evidence for hilar prominence. Degenerative changes dorsal spine. IMPRESSION: 1. Right infrahilar infiltrate may reflect developing pneumonia. Correlate clinically.
[2021-08-05] MEDS: SODIUM CHLORIDE 0.9% 500 ML 500 ML IV STA ×2 (18:06→18:08)
[2021-08-05] MEDS: SODIUM CHLORIDE 0.9% 1,000 ML IV SCH (18:19)
[2021-08-05] MEDS ORDERED: AZITHROMYCIN 500 MG in SODIUM CHLORIDE 0.9% 250 ML IVPB STA (18:30)
[2021-08-05] MEDS ORDERED: cefTRIAXone IN SWFI 1,000 MG/10 ML SYRINGE IVP STA (18:30)
[2021-08-05] MEDS ORDERED: FUROSEMIDE 10 MG/ML 4 ML VIAL IV STA (18:45)
--- NOTE | 2021-08-05 20:59 | US ---
EXAMINATION TYPE: US kidneys/renal and bladder DATE OF EXAM: 08/05/2021 COMPARISON: NONE CLINICAL HISTORY: ALTON/CKD. ALTON/CKD. Hx renal cysts. EXAM MEASUREMENTS: Right Kidney: 10.3 x 5.2 x 4.3 cm Left Kidney: 10.3 x 6.0 x 4.8 cm Right Kidney: Cortex appears thin. Multiple anechoic areas seen. Largest: 2.4 x 2.8 x 2.5 cm. Left Kidney: Cortex appears thin. Multiple anechoic areas seen. Largest: 6.1 x 4.9 x 4.7 cm. Possibl e dilated renal pelvis versus hypoechoic/anechoic area seen medially: 2.5 x 2.6 x 1.8 cm. Bladder: Appears anechoic. Bilateral Jets seen: No. IMPRESSION: Multiple cysts noted. The kidneys are hyperdense compatible with medical renal disease. Minimal corti taryn thinning noted. Mild fullness left renal collecting system.
[2021-08-05] MEDS ORDERED: hydrALAZINE HCL 10 MG TAB PO SCH (21:00)
[2021-08-05] MEDS: HEPARIN SODIUM,PORCINE/PF 5,000 UNIT/0.5 ML SYRINGE SQ SCH (21:30)
[2021-08-06] MEDS: ACETAMINOPHEN TAB 325 MG TAB PO PRN ×2 (03:25→23:19)
[2021-08-06] MEDS: PANTOPRAZOLE 40 MG TABLET PO SCH (03:25)
[2021-08-06 04:14] LABS: Appearance,Urine Clear (Clear); Bilirubin,Urine Negative (Negative); Blood,Urine Negative (Negative); Color,Urine Yellow; Glucose,Urine (UA) Trace (Negative); Ketones,Urine Negative (Negative); Leukocyte Esterase,Urine Negative (Negative); Mucus,Urine Rare /hpf; Nitrite,Urine Negative (Negative); Protein,Urine 3+ (Negative); RBC,Urine 1 /hpf (0-5); Specific Gravity,Urine 1.016 (1.001-1.035); Urobilinogen,Urine <2.0 mg/dL (<2.0); WBC,Urine 1 /hpf (0-5)
--- NOTE | 2021-08-06 07:14 | XR ---
EXAMINATION TYPE: XR chest 1V portable DATE OF EXAM: 08/06/2021 COMPARISON: 08/05/2021 INDICATION: CHF, pneumonia TECHNIQUE: Single frontal view of the chest is obtained. FINDINGS: The heart size is enlarged. The pulmonary vasculature is normal. Infiltrate is at the left base. IMPRESSION: 1. Mild left lower lobe infiltrate. Correlate for atelectasis and pneumonia. Atypical pulmonary edema could be considered. 2. Cardiomegaly
[2021-08-06 07:22] LABS: Basophils % (A) 1 %; Eosinophils # (A) 0.1 k/uL (0-0.7); Eosinophils % (A) 3 %; HCT 29.8 % (39.0-53.0); HGB 9.8 gm/dL (13.0-17.5); Lymphocytes # (A) 0.9 k/uL (1.0-4.8); Lymphocytes % (A) 20 %; MCHC 32.8 g/dL (31.0-37.0); MCV 100.5 fL (80.0-100.0); Macrocytosis Slight; Mean Platelet Volume 7.7; Monocytes # (A) 0.3 k/uL (0-1.0); Monocytes % (A) 7 %; Neutrophils # (A) 2.9 k/uL (1.3-7.7); Neutrophils % (A) 66 %; Platelet Count 131 k/uL (150-450); RBC 2.96 m/uL (4.30-5.90); RDW 15.3 % (11.5-15.5); WBC 4.4 k/uL (3.8-10.6)
[2021-08-06 07:50] LABS: Albumin 3.3 g/dL (3.5-5.0); Calcium 8.4 mg/dL (8.4-10.2); Magnesium 1.8 mg/dL (1.6-2.3); Potassium 5.9 mmol/L (3.5-5.1); Total Bilirubin 0.4 mg/dL (0.2-1.3); Total Protein 5.8 g/dL (6.3-8.2)
[2021-08-06] MEDS ORDERED: SODIUM BICARB 8.4% 50 ML SYR (1 MEQ/ML) IV STA ×2 (08:04→10:35)
[2021-08-06] MEDS ORDERED: DEXTROSE 50% SYRINGE 50 ML IVP STA (08:04)
[2021-08-06] MEDS ORDERED: ALBUTEROL NEBULIZED (CONC) 10 MG, SODIUM CHLORIDE 0.9% NEBULIZ 3 ML INHALATION STA ×2 (08:05)
[2021-08-06] MEDS ORDERED: CALCIUM GLUCONATE 1 GM in SODIUM CHLORIDE 0.9% 100 ML IVPB ONE (08:30)
[2021-08-06] MEDS ORDERED: INSULIN REGULAR 100 UNIT/ML VIAL (IV) IV ONE (08:30)
[2021-08-06] MEDS ORDERED: amLODIPine 10 MG TAB PO SCH (09:00)
[2021-08-06] MEDS ORDERED: NON FORMULARY DRUG (Omega-3 Fatty Acids/Fish Oil [Fish Oil 1,000 Mg Softgel] 1 EACH Capsul PO SCH (09:00)
[2021-08-06] MEDS ORDERED: hydrALAZINE HCL 25 MG TAB PO SCH (09:00)
[2021-08-06] MEDS ORDERED: amLODIPine 5 MG TAB PO SCH (09:00)
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
[2021-08-06] MEDS: METOPROLOL TARTRATE 12.5 MG TAB PO SCH (09:37)
[2021-08-06] MEDS: FUROSEMIDE 10 MG/ML 2 ML VIAL IV SCH ×2 (09:38→21:53)
[2021-08-06] MEDS: HEPARIN SODIUM,PORCINE/PF 5,000 UNIT/0.5 ML SYRINGE SQ SCH ×3 (09:38→22:14)
[2021-08-06] MEDS: hydrALAZINE HCL 25 MG TAB PO SCH ×3 (09:38→21:53)
[2021-08-06] MEDS: ASPIRIN 81 MG PO SCH (09:41)
[2021-08-06] MEDS: ISOSORBIDE MONONITRATE ER 30 MG TAB.ER.24H PO SCH (09:41)
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
--- NOTE | 2021-08-06 11:01 | ECHOF ---
Referral Reason:CHF MEASUREMENTS -------- HEIGHT: 172.7 cm WEIGHT: 90.3 kg BP: RVIDd: 3.0 cm (< 3.3) IVSd: 1.8 cm (0.6 - 1.1) LVIDd: 4.0 cm (3.9 - 5.3) LVPWd: 2.0 cm (0.6 - 1.1) IVSs: 2.6 cm LVIDs: 2.5 cm LVPWs: 2.4 cm LAESV Index (A-L): 52.95 ml/m Ao Diam: 3.6 cm (2.0 - 3.7) AV Cusp: 1.7 cm (1.5 - 2.6) LA Diam: 2.8 cm (2.7 - 3.8) MV EXCURSION: 23.254 mm (> 18.000) MV EF SLOPE: 93 mm/s (70 - 150) EPSS: 0.8 cm MV E Sotero: 0.95 m/s MV DecT: 318 ms MV A Sotero: 0.64 m/s MV E/A Ratio: 1.48 AV maxP.78 mmHg AV meanP.97 mmHg AR PHT: 1203 ms RAP: 15.00 mmHg RVSP: 49.57 mmHg FINDINGS -------- This was a technically good study. The left ventricular size is normal. There is severe concentric left ventricular hypertrophy. Ove rall left ventricular systolic function is normal with, an EF between 55 - 60 %. Increased LAP Grad e 2 Diastolic Dysfunction. The right ventricle is normal in size. LA is severely dilated >40 ml/m2 The right atrial size is normal. Aortic valve is trileaflet and is mildly thickened. There is mild aortic valve sclerosis. There i s mild aortic regurgitation. Peak/mean gradient across the Aortic Valve is 11.78mmHg / 5.97mmHg. The mitral valve is normal. The mitral valve leaflets are mildly thickened. Voji-zy-hzzernxm mitr al regurgitation is present. The tricuspid valve appears structurally normal. Mild tricuspid regurgitation present. There is m oderate pulmonary hypertension. The right ventricular systolic pressure, as measured by Doppler, is 49.57mmHg. There is no pulmonic regurgitation present. The aortic root is dilated measuring up to 4.5 cm. The inferior vena cava is mildly dilated. There is no pericardial effusion. CONCLUSIONS -------- 1. The left ventricular size is normal. 2. There is severe concentric left ventricular hypertrophy. 3. Overall left ventricular systolic function is normal with, an EF between 55 - 60 %. 4. Increased LAP Grade 2 Diastolic Dysfunction. 5. LA is severely dilated >40 ml/m2 5. inferior wall is hypokinetic 6. Aortic valve is trileaflet and is mildly thickened. 7. There is mild aortic valve sclerosis. 8. There is mild aortic regurgitation. 9. Peak/mean gradient across the Aortic Valve is 11.78mmHg / 5.97mmHg. 10. The mitral valve leaflets are mildly thickened. 11. Rwyn-np-[id number] mitral regurgitation is present. 12. Mild tricuspid regurgitation present. 13. There is moderate pulmonary hypertension. 14. The right ventricular systolic pressure, as measured by Doppler, is 49.57mmHg. 15. The aortic root is dilated measuring up to 4.5 cm. 16. The inferior vena cava is mildly dilated. 17. There is no pericardial effusion. CONSIGNEE: Gardenia Nix RDCS
[2021-08-06] MEDS: SODIUM BICARBONATE TAB 650 MG TAB PO SCH ×2 (11:09→21:53)
[2021-08-06] MEDS: CALCIUM ACETATE 667 MG TAB PO SCH ×2 (13:26→17:14)
[2021-08-06 15:46] LABS: Chol/HDL Ratio 2.69 Ratio; HDL Cholesterol 50.1 mg/dL (40.00-60.00)
[2021-08-06] MEDS: SODIUM CHLORIDE 0.9% 1,000 ML IV SCH (16:08)
[2021-08-06 16:19] LABS: Triglycerides 37.8 mg/dL (0.00-149.00)
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
[2021-08-06] MEDS ORDERED: AZITHROMYCIN 500 MG in SODIUM CHLORIDE 0.9% 250 ML IVPB SCH (21:00)
[2021-08-07] MEDS: PANTOPRAZOLE 40 MG TABLET PO SCH (06:29)
[2021-08-07] MEDS: CALCIUM ACETATE 667 MG TAB PO SCH ×3 (06:29→18:37)
[2021-08-07] MEDS: HEPARIN SODIUM,PORCINE/PF 5,000 UNIT/0.5 ML SYRINGE SQ SCH ×2 (08:45→19:52)
[2021-08-07 09:26] LABS: Basophils % (A) 1 %; Eosinophils # (A) 0.1 k/uL (0-0.7); Eosinophils % (A) 3 %; HCT 29.8 % (39.0-53.0); HGB 9.5 gm/dL (13.0-17.5); Lymphocytes # (A) 0.8 k/uL (1.0-4.8); Lymphocytes % (A) 16 %; MCH 32.3 pg (25.0-35.0); MCHC 31.7 g/dL (31.0-37.0); Macrocytosis Slight; Mean Platelet Volume 7.9; Monocytes # (A) 0.4 k/uL (0-1.0); Monocytes % (A) 7 %; Neutrophils # (A) 3.6 k/uL (1.3-7.7); Neutrophils % (A) 71 %; Platelet Count 130 k/uL (150-450); RBC 2.92 m/uL (4.30-5.90); RDW 14.8 % (11.5-15.5); WBC 5.1 k/uL (3.8-10.6)
[2021-08-07] MEDS: ASPIRIN 81 MG PO SCH (09:31)
[2021-08-07] MEDS: hydrALAZINE HCL 25 MG TAB PO SCH ×3 (09:31→19:52)
[2021-08-07] MEDS: ISOSORBIDE MONONITRATE ER 30 MG TAB.ER.24H PO SCH (09:31)
[2021-08-07] MEDS: FUROSEMIDE 10 MG/ML 2 ML VIAL IV SCH (09:31)
[2021-08-07] MEDS: METOPROLOL TARTRATE 12.5 MG TAB PO SCH (09:31)
[2021-08-07] MEDS: SODIUM BICARBONATE TAB 650 MG TAB PO SCH ×2 (09:31→19:52)
[2021-08-07 09:47] LABS: Calcium 8.5 mg/dL (8.4-10.2); Magnesium 1.8 mg/dL (1.6-2.3); Potassium 4.9 mmol/L (3.5-5.1)
--- NOTE | 2021-08-07 10:28 | P.PN ---
Subjective Progress Note Date: 08/07/21 Principal diagnosis: This 86-year-old male known with chronic kidney disease stage V, baseline creatinine is 3.7 as of 04/19/2021, possibly glomerulonephritis who does not want to be dialyzed. He is willing to consider it if absolutely necessary. He came in because of weakness and tiredness and an element of acute kidney injury. He had dizziness and generalized weakness. No nausea vomiting diarrhea. Admission potassium was 6.8 and creatinine was 5.9 to the bicarb of 18. With hydration creatinine is 5.7, potassium is down to 4.9 Currently he denies any complaints at all. He cc feeling much better. No shortness of breath chest pain nausea vomiting diarrhea abdominal pain no nondistended Itching Objective - Vital Signs Vital signs: Vital Signs Temp 98.0 F 08/07/21 04:00 Pulse 72 08/07/21 08:00 Resp 18 08/07/21 04:00 BP 136/85 08/07/21 04:00 Pulse Ox 97 08/07/21 04:00 Intake & Output 08/06/21 08/07/21 08/07/21 18:59 06:59 18:59 Intake Total 720 10 360 Output Total 550 800 225 Balance 170 -790 135 Weight 92.1 kg Intake: IV 10 Invasive Line 2 10 Oral 720 360 Output: Urine 550 800 225 Other: Voiding Method Urinal Urinal On examination awake alert oriented cheerful HEENT exam no JVP neck is supple no facial asymmetry Lungs clear to auscultation good air entry bilaterally Heart sounds unremarkable for murmur rub gallop Abdomen soft nontender Extreme exam was trace edema Neurologically awake alert oriented - Labs CBC & Chem 7: 08/07/21 08:46 08/07/21 08:46 Labs: Abnormal Lab Results - Last 24 Hours (Table) 08/06/21 08/07/21 08/07/21 Range/Units 12:55 08:46 08:46 RBC 2.92 L (4.30-5.90) m/uL Hgb 9.5 L (13.0-17.5) gm/dL Hct 29.8 L (39.0-53.0) % MCV 102.0 H (80.0-100.0) fL Plt Count 130 L (150-450) k/uL Lymphocytes # 0.8 L (1.0-4.8) k/uL Potassium 5.2 H (3.5-5.1) mmol/L Chloride 108 H (98-107) mmol/L Carbon Dioxide 19 L (22-30) mmol/L BUN 72 H (9-20) mg/dL Creatinine 5.70 H (0.66-1.25) mg/dL Glucose 113 H (74-99) mg/dL Microbiology - Last 24 Hours (Table) 08/05/21 21:05 Blood Culture - Preliminary Blood No Growth after 24 hours 08/05/21 19:52 Blood Culture - Preliminary Blood No Growth after 24 hours Assessment and Plan Assessment: Impression 1. Acute kidney injury, likely from cardiorenal syndrome 2. 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 3. Hyperkalemia secondary acute kidney injury improved, with IV fluids and Lasix 4. Acidosis from chronic kidney disease and acute kidney injury improved on bicarb. 5. Anemia hemoglobin is 9.9, went down to 9.5 Recommendation 1. Maintain current medication included the Lasix, would change it to by mouth 20 twice a day for possible discharge soon. 2. Discussed with him the possibility of dialysis he says he will only do it is absolutely necessary and very symptomatic. At the moment he can be managed conservatively Avoid any Tuan inhibitors or ARB right now because of the hyperkalemia.
--- NOTE | 2021-08-07 12:05 | P.PN ---
Subjective 86-year-old male admitted for renal failure stage IV 5 chronic kidney disease and the patient declined hemodialysis. Patient the a does have generalized weakness will need physical therapy and outpatient therapy evaluation possible placement in subacute rehabitation patient was hypokalemic which was treated present potassium is 4.9. Constitutional: Denied any fatigue denied any fever. Cardio vascular: denied any chest pain, palpitations Gastrointestinal denied any nausea vomiting Pulmonary: Denied any shortness of breath cough Neurologic denied any new focal deficits All inpatient medications were reviewed and appropriate changes in these medications as dictated in the interval history and assessment and plan. PHYSICAL EXAMINATION: GENERAL: The patient is alert and oriented x3, not in any acute distress. Well developed, well nourished. HEENT: Pupils are round and equally reacting to light. EOMI. No scleral icterus. No conjunctival pallor. Normocephalic, atraumatic. No pharyngeal erythema. No thyromegaly. CARDIOVASCULAR: S1 and S2 present. No murmurs, rubs, or gallops. PULMONARY: Chest is clear to auscultation, no wheezing or crackles. ABDOMEN: Soft, nontender, nondistended, normoactive bowel sounds. No palpable organomegaly. MUSCULOSKELETAL: No joint swelling or deformity. EXTREMITIES: No cyanosis, clubbing, or pedal edema. NEUROLOGICAL: Gross neurological examination did not reveal any focal deficits. SKIN: No rashes. Assessment and plan -Acute kidney injury secondary to cardiorenal syndrome and patient does have chronic kidney disease stage V with baseline creatinine around 3.7 present creatinine is around 5.8 -Hyperkalemia secondary to acute kidney injury which improved at this time -Anion gap metabolic acidosis secondary to renal failure and patient is on bicarbonate at this time -His heart failure chronic systolic as well as diastolic dysfunction with acute exacerbation and patient is urinating well at this time -Patient is being treated for possible pneumonia although there is no evidence o f that IV antibodies will be discontinued at this time -Chronic kidney disease 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 with phosphorus of around 5 patient is on phosphate binders DVT prophylaxis: Subcutaneous heparin Objective - Vital Signs Vital signs: Vital Signs Temp 97.7 F 08/07/21 08:00 Pulse 72 08/07/21 08:00 Resp 18 08/07/21 08:00 BP 141/76 08/07/21 08:00 Pulse Ox 98 08/07/21 08:00 Intake & Output 08/06/21 08/07/21 08/07/21 18:59 06:59 18:59 Intake Total 720 10 360 Output Total 550 800 525 Balance 170 -790 -165 Weight 92.1 kg Intake: IV 10 Invasive Line 2 10 Oral 720 360 Output: Urine 550 800 525 Other: Voiding Method Urinal Urinal - Labs CBC & Chem 7: 08/07/21 08:46 08/07/21 08:46 Labs: Abnormal Lab Results - Last 24 Hours (Table) 08/06/21 08/07/21 08/07/21 Range/Units 12:55 08:46 08:46 RBC 2.92 L (4.30-5.90) m/uL Hgb 9.5 L (13.0-17.5) gm/dL Hct 29.8 L (39.0-53.0) % MCV 102.0 H (80.0-100.0) fL Plt Count 130 L (150-450) k/uL Lymphocytes # 0.8 L (1.0-4.8) k/uL Potassium 5.2 H (3.5-5.1) mmol/L Chloride 108 H (98-107) mmol/L Carbon Dioxide 19 L (22-30) mmol/L BUN 72 H (9-20) mg/dL Creatinine 5.70 H (0.66-1.25) mg/dL Glucose 113 H (74-99) mg/dL Microbiology - Last 24 Hours (Table) 08/05/21 21:05 Blood Culture - Preliminary Blood No Growth after 24 hours 08/05/21 19:52 Blood Culture - Preliminary Blood No Growth after 24 hours
--- NOTE | 2021-08-07 16:44 | PN ---
PROGRESS NOTE HISTORY: Mr. Blair is an 86-year-old male who presented to the hospital with symptoms of dizziness and dyspnea. He is feeling better at this time. His dizziness is better. He denies any chest pain. He denies any palpitation. He has a known history of coronary disease as well as history of atrial fibrillation for which the patient declined anticoagulation in the past. He denies any nausea or vomiting. He denies any cough. He underwent an echocardiogram with Doppler that showed and a preserved systolic function with mild to moderate mitral and mild tricuspid regurgitation. He continues to be at this time on aspirin once a day, furosemide 20 mg twice a day, hydralazine 25 mg 3 times a day, isosorbide mononitrate 30 mg daily, metoprolol tartrate .5 mg daily. PHYSICAL EXAMINATION: Blood pressure 130/70 with a heart rate 60. Lungs clear. Heart irregular regular, S1, S2, no S3 with systolic murmur, no diastolic murmur. Abdomen soft, nontender. Extremities trace to 1+ edema bilaterally. LAB DATA: Lab data revealed BUN and creatinine 72 and 5.7, potassium 1.9, hemoglobin of 9.5. IMPRESSION: 1. Symptoms of dizziness, improved. 2. History of coronary artery disease. 3. Atrial fibrillation, patient declined anticoagulation. 4. Advanced renal failure patient declined dialysis. 5. History of hypertension. RECOMMENDATIONS: From the current cardiac standpoint, we will continue present therapy. The elevation of the troponin does not reflect an acute ischemic event. We will see him on as-needed basis. Please feel free to call us for any questions. MMODL / IJN: [id number] /
[2021-08-07] MEDS: FUROSEMIDE 20 MG TAB PO SCH (18:37)
[2021-08-07] MEDS: ACETAMINOPHEN TAB 325 MG TAB PO PRN (19:52)
[2021-08-08] MEDS: PANTOPRAZOLE 40 MG TABLET PO SCH (06:21)
[2021-08-08] MEDS: CALCIUM ACETATE 667 MG TAB PO SCH ×3 (06:21→16:46)
--- NOTE | 2021-08-08 08:22 | P.PN ---
Subjective 86-year-old male admitted for renal failure stage IV 5 chronic kidney disease and the patient declined hemodialysis. Patient the a does have generalized weakness will need physical therapy and outpatient therapy evaluation possible placement in subacute rehabitation patient was hypokalemic which was treated present potassium is 4.9. 08/08/2021 Patient is clinically doing well awaiting disposition to subacute rehabitation most probably tomorrow Constitutional: Denied any fatigue denied any fever. Cardio vascular: denied any chest pain, palpitations Gastrointestinal denied any nausea vomiting Pulmonary: Denied any shortness of breath cough Neurologic denied any new focal deficits All inpatient medications were reviewed and appropriate changes in these medications as dictated in the interval history and assessment and plan. PHYSICAL EXAMINATION: GENERAL: The patient is alert and oriented x3, not in any acute distress. Well developed, well nourished. HEENT: Pupils are round and equally reacting to light. EOMI. No scleral icterus. No conjunctival pallor. Normocephalic, atraumatic. No pharyngeal erythema. No thyromegaly. CARDIOVASCULAR: S1 and S2 present. No murmurs, rubs, or gallops. PULMONARY: Chest is clear to auscultation, no wheezing or crackles. ABDOMEN: Soft, nontender, nondistended, normoactive bowel sounds. No palpable organomegaly. MUSCULOSKELETAL: No joint swelling or deformity. EXTREMITIES: No cyanosis, clubbing, or pedal edema. NEUROLOGICAL: Gross neurological examination did not reveal any focal deficits. SKIN: No rashes. Assessment and plan -Acute kidney injury secondary to cardiorenal syndrome and patient does have chronic kidney disease stage V with baseline creatinine around 3.7 present cre atinine is around 5.8 and creatinine remain stable patient is urinating well and can be discharged to subacute rehabitation most probably tomorrow -Hyperkalemia secondary to acute kidney injury which improved at this time -Anion gap metabolic acidosis secondary to renal failure and patient is on bic arbonate at this time -His heart failure chronic systolic as well as diastolic dysfunction with acute exacerbation and patient is urinating well at this time -Patient is being treated for possible pneumonia although there is no evidence of that IV antibodies will be discontinued at this time -Chronic kidney disease 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 with phosphorus of around 5 patient is on phosphate binders DVT prophylaxis: Subcutaneous heparin Objective - Vital Signs Vital signs: Vital Signs Temp 98.1 F 08/08/21 03:00 Pulse 73 10/31/21 03:00 Resp 18 08/08/21 03:00 BP 141/73 08/08/21 03:00 Pulse Ox 96 08/08/21 03:00 Intake & Output 08/07/21 08/08/21 08/08/21 18:59 06:59 18:59 Intake Total 960 Output Total 925 250 475 Balance 35 -250 -475 Weight 92.9 kg Intake: Oral 960 Output: Urine 925 250 475 Other: Voiding Method Urinal - Labs CBC & Chem 7: 08/07/21 08:46 08/07/21 08:46 Labs: Abnormal Lab Results - Last 24 Hours (Table) 08/07/21 08/07/21 Range/Units 08:46 08:46 RBC 2.92 L (4.30-5.90) m/uL Hgb 9.5 L (13.0-17.5) gm/dL Hct 29.8 L (39.0-53.0) % MCV 102.0 H (80.0-100.0) fL Plt Count 130 L (150-450) k/uL Lymphocytes # 0.8 L (1.0-4.8) k/uL Chloride 108 H (98-107) mmol/L Carbon Dioxide 19 L (22-30) mmol/L BUN 72 H (9-20) mg/dL Creatinine 5.70 H (0.66-1.25) mg/dL Glucose 113 H (74-99) mg/dL Microbiology - Last 24 Hours (Table) 08/05/21 21:05 Blood Culture - Preliminary Blood No Growth after 48 hours 08/05/21 19:52 Blood Culture - Preliminary Blood No Growth after 48 hours
[2021-08-08 08:26] LABS: Calcium 8.7 mg/dL (8.4-10.2); Potassium 5.3 mmol/L (3.5-5.1)
[2021-08-08] MEDS: ASPIRIN 81 MG PO SCH (08:39)
[2021-08-08] MEDS: SODIUM BICARBONATE TAB 650 MG TAB PO SCH ×2 (08:39→20:06)
[2021-08-08] MEDS: FUROSEMIDE 20 MG TAB PO SCH ×2 (08:39→16:46)
[2021-08-08] MEDS: ISOSORBIDE MONONITRATE ER 30 MG TAB.ER.24H PO SCH (08:39)
[2021-08-08] MEDS: hydrALAZINE HCL 25 MG TAB PO SCH ×3 (08:39→20:06)
[2021-08-08] MEDS: METOPROLOL TARTRATE 12.5 MG TAB PO SCH (08:39)
[2021-08-08] MEDS: HEPARIN SODIUM,PORCINE/PF 5,000 UNIT/0.5 ML SYRINGE SQ SCH ×2 (08:45→20:06)
--- NOTE | 2021-08-08 08:47 | P.PN ---
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 He is willing to consider it if absolutely necessary. He came in because of weakness and tiredness and an element of acute kidney injury. He had dizziness and generalized weakness. No nausea vomiting diarrhea. Admission potassium was 6.8 and creatinine was 5.9 to the bicarb of 18. With hydration creatinine is 5.7, potassium is down to 4.9 Currently he denies any complaints at all. He is feeling much better. No shortness of breath chest pain nausea vomiting diarrhea abdominal pain no nondistended He denies any Itching His workup has included an chest x-ray that shows mild left lower lobe infiltrate and cardiomegaly, no congestive heart failure, ultrasound which ruled out hydronephrosis with bilateral cysts in the kidney, echocardiogram that shows 55 6% ejection fraction mild pulmonary hypertension with systolic pressures in the 49 range Objective - Vital Signs Vital signs: Vital Signs Temp 98.1 F 08/08/21 03:00 Pulse 73 08/08/21 03:00 Resp 18 08/08/21 03:00 BP 141/73 08/08/21 03:00 Pulse Ox 96 08/08/21 03:00 Intake & Output 08/07/21 08/08/21 08/08/21 18:59 06:59 18:59 Intake Total 960 Output Total 925 250 475 Balance 35 -250 -475 Weight 92.9 kg Intake: Oral 960 Output: Urine 925 250 475 Other: Voiding Method Urinal On examination awake alert oriented comfortable HEENT exam JVP is seen around 3-4 cm about sternal angle sitting up in a chair neck is supple no facial asymmetry Lungs are clear to auscultation good air entry bilaterally Heart sounds unremarkable for any murmur rub gallop Abdomen soft nontender Extremity exam was minimal edema Neurologically awake alert oriented No asterixis noted - Labs CBC & Chem 7: 08/07/21 08:46 08/08/21 07:48 Labs: Abnormal Lab Results - Last 24 Hours (Table) 08/07/21 08/07/21 08/08/21 Range/Units 08:46 08:46 07:48 RBC 2.92 L (4.30-5.90) m/uL Hgb 9.5 L (13.0-17.5) gm/dL Hct 29.8 L (39.0-53.0) % MCV 102.0 H (80.0-100.0) fL Plt Count 130 L (150-450) k/uL Lymphocytes # 0.8 L (1.0-4.8) k/uL Potassium 5.3 H (3.5-5.1) mmol/L Chloride 108 H (98-107) mmol/L Carbon Dioxide 19 L 20 L (22-30) mmol/L BUN 72 H 74 H (9-20) mg/dL Creatinine 5.70 H 6.05 H (0.66-1.25) mg/dL Glucose 113 H 115 H (74-99) mg/dL Microbiology - Last 24 Hours (Table) 08/05/21 21:05 Blood Culture - Preliminary Blood No Growth after 48 hours 08/05/21 19:52 Blood Culture - Preliminary Blood No Growth after 48 hours Assessment and Plan Assessment: Impression 1. Acute kidney injury, likely from cardiorenal syndrome. Echo Cardizem shows normal ejection fraction mild pulmonary hypertension with right systolic pressure 49 mm. Creatinine went up, to 6.05, not uremic and refuses dialysis 2. 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 to 3.9, as of April 2021 3. Hyperkalemia secondary acute kidney injury improved, with IV fluids and Lasix 4. Acidosis from chronic kidney disease and acute kidney injury improved on bicarb. 5. Anemia hemoglobin is 9.9, went down to 9.5 Recommendation 1. Continue current Lasix at 20 mg twice a day. Patient can be discharged home as he is refusing dialysis Avoid any Tuan inhibitors or ARB right now because of the hyperkalemia.
[2021-08-09] MEDS: ACETAMINOPHEN TAB 325 MG TAB PO PRN (00:53)
[2021-08-09] MEDS: PANTOPRAZOLE 40 MG TABLET PO SCH (06:19)
[2021-08-09] MEDS: CALCIUM ACETATE 667 MG TAB PO SCH ×2 (06:19→12:07)
[2021-08-09] MEDS: ASPIRIN 81 MG PO SCH (07:23)
[2021-08-09] MEDS: SODIUM BICARBONATE TAB 650 MG TAB PO SCH (07:23)
[2021-08-09] MEDS: hydrALAZINE HCL 25 MG TAB PO SCH ×2 (07:23→15:02)
[2021-08-09] MEDS: METOPROLOL TARTRATE 12.5 MG TAB PO SCH (07:23)
[2021-08-09] MEDS: FUROSEMIDE 20 MG TAB PO SCH ×2 (07:23→15:02)
[2021-08-09] MEDS: ISOSORBIDE MONONITRATE ER 30 MG TAB.ER.24H PO SCH (07:23)
[2021-08-09] MEDS: HEPARIN SODIUM,PORCINE/PF 5,000 UNIT/0.5 ML SYRINGE SQ SCH (07:28)
[2021-08-09 07:30] VITALS: RESP 18
[2021-08-09 07:38] LABS: Calcium 8.7 mg/dL (8.4-10.2); Potassium 5.3 mmol/L (3.5-5.1)
[2021-08-09 12:09] VITALS: BP 156/71; PULSE 64; TEMP 98
--- NOTE | 2021-08-09 13:10 | P.DS ---
Providers Date of admission: 08/05/21 17:15 Attending physician: Osvaldo Robbins Consults: 08/05/21 17:14 Consult Physician Routine Consulting Provider: Román Lam Consult Reason/Comments: acute on chronic kidney injury Do you want consulting provider notified?: Yes Primary care physician: Osvaldo Robbins Hospital Course: 86-year-old male admitted for renal failure stage IV 5 chronic kidney disease and the patient declined hemodialysis. Patient the a does have generalized weakness will need physical therapy and outpatient therapy evaluation possible placement in subacute rehabitation patient was hypokalemic which was treated present potassium is 4.9. 08/08/2021 Patient is clinically doing well awaiting disposition to subacute rehabitation most probably tomorrow 08/09/2021 Patient is clinically doing well will be discharged today patient potassium did go up to 5.3 patient will be discharged on sodium zirconate, potassium binder 3 times a week and follow-up with nephrology as an outpatient. Patient is having good urine output. Patient will be discharged to home today as he did well with the physical therapy. She was treated for cardiorenal syndrome. PHYSICAL EXAMINATION: GENERAL: The patient is alert and oriented x3, not in any acute distress. Well developed, well nourished. HEENT: Pupils are round and equally reacting to light. EOMI. No scleral icterus. No conjunctival pallor. Normocephalic, atraumatic. No pharyngeal erythema. No thyromegaly. CARDIOVASCULAR: S1 and S2 present. No murmurs, rubs, or gallops. PULMONARY: Chest is clear to auscultation, no wheezing or crackles. ABDOMEN: Soft, nontender, nondistended, normoactive bowel sounds. No palpable organomegaly. MUSCULOSKELETAL: No joint swelling or deformity. EXTREMITIES: No cyanosis, clubbing, or pedal edema. NEUROLOGICAL: Gross neurological examination did not reveal any focal deficits. SKIN: No rashes. Assessment and plan -Acute kidney injury secondary to cardiorenal syndrome and patient does have chronic kidney disease stage V with baseline creatinine around 3.7 present creatinine is around 5.8 and creatinine remain stable at around 5.5 patient is urinating well declined hemodialysis. 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 with phosphorus of around 5 patient is on phosphate binders Patient Condition at Discharge: Fair Plan - Discharge Summary Discharge Rx Participant: Yes New Discharge Prescriptions: New Sodium Zirconium Cyclosilicate [Lokelma] 5 gm PO WEEKLY #20 hydrALAZINE HCL [Apresoline] 25 mg PO TID #0 tab Isosorbide Mononitrate ER [Imdur] 30 mg PO DAILY #30 tablet Calcium Acetate [PhosLo] 667 mg PO TID-W/MEALS tab Aspirin 81 mg PO DAILY tab Sodium Bicarbonate Tab 650 mg PO BID tab Continue Metoprolol Tartrate [Lopressor] 12.5 mg PO DAILY Pantoprazole [Protonix] 40 mg PO DAILY [place]-3 Fatty Acids/Fish Oil [Fish Oil 1,000 mg Softgel] 1 cap PO DAILY Discontinued amLODIPine [Norvasc] 5 mg PO DAILY hydrALAZINE HCL [Apresoline] 10 mg PO BID Discharge Medication List Metoprolol Tartrate [Lopressor] 12.5 mg PO DAILY 07/28/21 [History] Pantoprazole [Protonix] 40 mg PO DAILY 07/28/21 [History] [place]-3 Fatty Acids/Fish Oil [Fish Oil 1,000 mg Softgel] 1 cap PO DAILY 08/05/21 [History] Aspirin 81 mg PO DAILY tab 08/09/21 [Rx] Calcium Acetate [PhosLo] 667 mg PO TID-W/MEALS tab 08/09/21 [Rx] Furosemide [Lasix] 20 mg PO BID@0900,1600 tab 08/09/21 [Rx] Isosorbide Mononitrate ER [Imdur] 30 mg PO DAILY #30 tablet 08/09/21 [Rx] Sodium Bicarbonate Tab 650 mg PO BID tab 08/09/21 [Rx] Sodium Zirconium Cyclosilicate [Lokelma] 5 gm PO WEEKLY #20 08/09/21 [Rx] hydrALAZINE HCL [Apresoline] 25 mg PO TID #0 tab 08/09/21 [Rx] Follow up Appointment(s)/Referral(s): Osvaldo Robbins MD [Primary Care Provider] - 1-2 days Karla,Mars, MD [STAFF PHYSICIAN] - 1 Week Discharge Disposition: HOME SELF-CARE
--- NOTE | 2021-08-09 14:06 | PN ---
PROGRESS NOTE Patient is seen for followup for chronic kidney disease and element of acute kidney injury which has improved. His creatinine is down to 5.9 from 6.0. Patient states he is feeling much better. He has refused hemodialysis. PHYSICAL EXAMINATION: On examination today, blood pressure 142/82, heart rate 77 per minute, he is afebrile. Examination of the heart S1 and S2. Examination of the lungs: Decreased breath sounds at the bases. Abdomen is soft, nontender. Examination of lower extremities shows edema 1+ bilaterally. MAINFRAME PROGRAMMER exam grossly intact. LAB: Show sodium 134, potassium 5.3, chloride 106, BUN 73, creatinine 5.9. Troponin 0.065. ASSESSMENT: 1. Chronic kidney disease stage 5 with patient refusing renal replacement therapy. 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 2. Acute kidney injury from cardiorenal syndrome with elevated right heart pressures. Renal function currently stable. 3. Hyperkalemia associated with acute kidney injury, currently improved. 4. Anemia, stable. 5. Metabolic acidosis secondary to renal failure, maintained on oral sodium bicarb. 6. CKD mineral bone disorder. PLAN: The patient can be discharged from nephrology standpoint, follow up as outpatient in about one week's time. Continue with the current dose of PhosLo. MMODL / IJN: [id number] /
== END 2021-08-09 15:45 | disposition home health service (06) | DRG 193 ==
LOC: EC 14:26 → 3SCARD 17:15
PROVIDERS: ADMIT Family Medicine; ATTEND Family Medicine
DX: J18.9 Pneumonia, unspecified organism (principal); I50.43 Acute on chronic combined systolic (congestive) and diastolic (congestive) heart failure; N17.0 Acute kidney failure with tubular necrosis; E87.2 Acidosis; I13.2 Hypertensive heart and chronic kidney disease with heart failure and with stage 5 chronic kidney disease, or end stage renal disease; I48.19 Other persistent atrial fibrillation; N18.5 Chronic kidney disease, stage 5; D64.9 Anemia, unspecified; Z20.822 Contact with and (suspected) exposure to COVID-19; E87.5 Hyperkalemia; E87.6 Hypokalemia; I25.10 Atherosclerotic heart disease of native coronary artery without angina pectoris; I27.22 Pulmonary hypertension due to left heart disease; I45.10 Unspecified right bundle-branch block; K21.9 Gastro-esophageal reflux disease without esophagitis; M19.90 Unspecified osteoarthritis, unspecified site; R29.6 Repeated falls; Z79.899 Other long term (current) drug therapy; Z87.442 Personal history of urinary calculi; Z95.5 Presence of coronary angioplasty implant and graft; Z96.1 Presence of intraocular lens; M89.8X9 Other specified disorders of bone, unspecified site; K57.90 Diverticulosis of intestine, part unspecified, without perforation or abscess without bleeding; R53.81 Other malaise; G62.9 Polyneuropathy, unspecified; H26.9 Unspecified cataract
CPT/HCPCS: 36415; 71045; 71046; 76770; 80048; 80053; 80061; 81001; 83735; 83880; 84100; 84132; 84145; 84484; 85025; 85652; 86140; 87040; 87502; 87634; 87635; 93005; 93306; 94640; 99285

== ENCOUNTER 2021-08-13 14:33 | Inpatient (IN) | payer MEDICARE, OTHER ==
[2021-08-13] MEDS ORDERED: ASPIRIN 81 MG PO STA (15:21)
[2021-08-13] MEDS ORDERED: NITROGLYCERIN OINT 1 INCH/GM PACKET TOPICAL STA (15:22)
[2021-08-13] MEDS ORDERED: FUROSEMIDE 10 MG/ML 4 ML VIAL IV STA ×2 (15:22→19:28)
[2021-08-13 15:32] LABS: Basophils % (A) 1 %; Eosinophils # (A) 0.1 k/uL (0-0.7); Eosinophils % (A) 2 %; HCT 29.9 % (39.0-53.0); HGB 9.4 gm/dL (13.0-17.5); Lymphocytes # (A) 0.5 k/uL (1.0-4.8); Lymphocytes % (A) 10 %; MCHC 31.5 g/dL (31.0-37.0); MCV 101.5 fL (80.0-100.0); Macrocytosis Slight; Mean Platelet Volume 7.7; Monocytes # (A) 0.3 k/uL (0-1.0); Monocytes % (A) 6 %; Neutrophils # (A) 3.6 k/uL (1.3-7.7); Neutrophils % (A) 78 %; Platelet Count 128 k/uL (150-450); RBC 2.95 m/uL (4.30-5.90); RDW 14.4 % (11.5-15.5); WBC 4.6 k/uL (3.8-10.6)
--- NOTE | 2021-08-13 15:40 | XR ---
EXAMINATION TYPE: XR chest 2V DATE OF EXAM: 08/13/2021 COMPARISON: 08/06/2021 INDICATION: Chest pain, short of breath TECHNIQUE: Frontal and lateral views of the chest are obtained. FINDINGS: The heart size is enlarged. The pulmonary vasculature is normal. The lungs are clear. IMPRESSION: 1. Cardiomegaly
[2021-08-13 15:41] LABS: Partial Thromboplastin Time 26.2 sec (22.0-30.0)
[2021-08-13 15:44] LABS: Albumin 3.7 g/dL (3.5-5.0); Calcium 8.2 mg/dL (8.4-10.2); Magnesium 2.2 mg/dL (1.6-2.3); Total Bilirubin 0.3 mg/dL (0.2-1.3); Total Protein 6.4 g/dL (6.3-8.2)
[2021-08-13 15:55] LABS: Potassium 6.2 mmol/L (3.5-5.1)
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
[2021-08-13] MEDS ORDERED: hydrALAZINE HCL 20 MG/ML 1 ML VIAL IVP STA (19:25)
[2021-08-13] MEDS ORDERED: SODIUM POLYSTYRENE SULFONATE 15 GM/60 ML BOTTLE PO STA (19:25)
[2021-08-13] MEDS ORDERED: SODIUM BICARB 8.4% 50 ML SYR (1 MEQ/ML) IV ONE (19:26)
[2021-08-13] MEDS ORDERED: HEPARIN SODIUM 1,000 UN/ML (10ML VL) IV ONE (19:29)
[2021-08-13] MEDS ORDERED: HEPARIN SODIUM 1,000 UN/ML (10ML VL) IV PRN (19:29)
[2021-08-13] MEDS ORDERED: HEPARIN SOD,PORK IN 0.45% NACL 25,000 UNIT in 0.45% NACL 1 250ML.BAG IV SCH (19:30)
[2021-08-13] MEDS ORDERED: hydrALAZINE HCL 20 MG/ML 1 ML VIAL IVP PRN (19:38)
[2021-08-13 21:16] LABS: Calcium 8.1 mg/dL (8.4-10.2)
[2021-08-13 21:26] LABS: Potassium 6.2 mmol/L (3.5-5.1)
[2021-08-13] MEDS: SODIUM BICARBONATE TAB 650 MG TAB PO SCH (22:35)
[2021-08-13] MEDS: hydrALAZINE HCL 25 MG TAB PO SCH ×2 (22:36→22:37)
[2021-08-14] MEDS: NITROGLYCERIN OINT 1 INCH/GM PACKET TOPICAL SCH ×5 (01:51→19:49)
[2021-08-14 02:18] LABS: Basophils % (A) 1 %; Eosinophils # (A) 0.1 k/uL (0-0.7); Eosinophils % (A) 3 %; HCT 27.7 % (39.0-53.0); Lymphocytes # (A) 0.7 k/uL (1.0-4.8); Lymphocytes % (A) 14 %; MCH 32.5 pg (25.0-35.0); MCHC 32.6 g/dL (31.0-37.0); MCV 99.7 fL (80.0-100.0); Macrocytosis Slight; Mean Platelet Volume 7.4; Monocytes # (A) 0.4 k/uL (0-1.0); Monocytes % (A) 8 %; Neutrophils # (A) 3.6 k/uL (1.3-7.7); Neutrophils % (A) 71 %; Platelet Count 139 k/uL (150-450); RBC 2.77 m/uL (4.30-5.90); RDW 14.9 % (11.5-15.5); WBC 5.1 k/uL (3.8-10.6)
[2021-08-14] MEDS: CALCIUM ACETATE 667 MG TAB PO SCH ×3 (06:01→16:43)
[2021-08-14] MEDS: PANTOPRAZOLE 40 MG TABLET PO SCH (06:01)
[2021-08-14] MEDS: ASPIRIN 325 MG TAB PO SCH (06:01)
[2021-08-14] MEDS ORDERED: NON FORMULARY DRUG (Omega-3 Fatty Acids/Fish Oil [Fish Oil 1,000 Mg Softgel] 1 EACH Capsul PO SCH (09:00)
[2021-08-14] MEDS: SODIUM BICARBONATE TAB 650 MG TAB PO SCH ×2 (09:47→19:49)
[2021-08-14] MEDS: FUROSEMIDE 10 MG/ML 4 ML VIAL IV SCH ×2 (09:47→19:48)
[2021-08-14] MEDS: CHOLECALCIFEROL 25 MCG (1000 IU) TABLET PO SCH (09:47)
[2021-08-14] MEDS: CYANOCOBALAMIN 500 MCG TAB PO SCH (09:47)
[2021-08-14] MEDS: METOPROLOL TARTRATE 12.5 MG TAB PO SCH (09:47)
[2021-08-14] MEDS: hydrALAZINE HCL 25 MG TAB PO SCH ×2 (09:48→19:49)
[2021-08-14 09:52] LABS: Prothrombin Time 10.9 sec (9.0-12.0)
[2021-08-14] MEDS: HEPARIN SODIUM,PORCINE/PF 5,000 UNIT/0.5 ML SYRINGE SQ SCH ×2 (10:25→19:41)
[2021-08-14 10:46] LABS: Calcium 8.1 mg/dL (8.4-10.2); Potassium 5.4 mmol/L (3.5-5.1)
[2021-08-14] MEDS ORDERED: DARBEPOETIN ALFA 40 MCG/0.4 ML SYRINGE SQ SCH (12:00)
--- NOTE | 2021-08-14 12:06 | CONS ---
CONSULTATION REASON FOR CONSULT: Renal failure. HISTORY OF PRESENT ILLNESS: The patient is an 86-year-old male with chronic kidney disease NKF stage 5 with baseline creatinine about 5-6 mg/dL and chronic hyperkalemia. He was admitted to the hospital with complaints of chest pain. He is also mildly volume overloaded. Troponin has been borderline at 0.069 and 0.7, which has been the same for the last 2-3 years. Patient has refused any renal replacement therapy and he is again adamant that he does not want dialysis. PAST MEDICAL HISTORY: CKD stage 5, metabolic acidosis, chronic hyperkalemia, gastroesophageal reflux disease, hypertension, chronic atrial fibrillation, history of kidney stones, diverticulosis, duodenal ulcers, neuropathy. PAST SURGICAL HISTORY: Adenoidectomy, appendectomy, cholecystectomy, cardiac catheterization, coronary stent, tonsillectomy, cauterization of peptic ulcers, cataract surgery, lithotripsy, colonoscopy, cystoscopy, prostate surgery, possibly TURP procedure. SOCIAL HISTORY: Negative for smoking, drug abuse or alcohol abuse. MEDICATIONS: Medications prior to admission included Lopressor, Protonix, fish oil, vitamin D, vitamin B12, aspirin, PhosLo, Lasix, Imdur, sodium bicarb, Lokelma, and hydralazine. ALLERGIES: None. REVIEW OF SYSTEMS: As per HPI. Other systems negative. EXAMINATION: Comfortable, awake, not in any acute distress. Alert, oriented x3. Blood pressure is 142/86, heart rate 60 per minute. He is afebrile. Examination of the heart S1, S2. Examination of lungs, bilateral breath sounds are heard. Abdomen is soft, nontender. Examination lower extremities shows edema 1+ bilaterally. MATCHER OFFBEARER exam grossly intact. LAB: Show sodium of 139, potassium 5.4, chloride 107, CO2 is 19, BUN 88, creatinine 5.7, hemoglobin 9.0 g/dL. ASSESSMENT: 1. CKD stage 5 with renal function at baseline. No plans for renal replacement therapy. 2. Hyperkalemia, chronic, associated with renal failure, maintained on Lokelma as outpatient. I will increase that to twice a week. 3. Volume overload maintained on IV Lasix. 4. Chronic kidney disease mineral bone disorder, maintained on PhosLo. 5. Metabolic acidosis currently on sodium bicarb which we will continue. 6. Anemia. We will give a dose of Aranesp. PLAN: Continue sodium bicarb. Increase Lokelma to twice a week for hyperkalemia. No plans on dialysis. Continue with IV Lasix. Thank you for this consultation. We will continue to follow the patient with you during his hospitalization. GELY / CHUCK: [id number] /
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
[2021-08-14] MEDS: MELATONIN 3 MG TABLET PO PRN (23:28)
[2021-08-15] MEDS: CALCIUM ACETATE 667 MG TAB PO SCH ×3 (05:56→17:15)
[2021-08-15] MEDS: PANTOPRAZOLE 40 MG TABLET PO SCH (05:56)
[2021-08-15] MEDS: HEPARIN SODIUM,PORCINE/PF 5,000 UNIT/0.5 ML SYRINGE SQ SCH ×2 (08:16→21:19)
[2021-08-15] MEDS: SODIUM BICARBONATE TAB 650 MG TAB PO SCH ×2 (08:19→21:21)
[2021-08-15] MEDS: CYANOCOBALAMIN 500 MCG TAB PO SCH (08:19)
[2021-08-15] MEDS: METOPROLOL TARTRATE 12.5 MG TAB PO SCH (08:19)
[2021-08-15] MEDS: hydrALAZINE HCL 25 MG TAB PO SCH ×3 (08:19→21:21)
[2021-08-15] MEDS: FUROSEMIDE 10 MG/ML 4 ML VIAL IV SCH ×2 (08:19→21:21)
[2021-08-15] MEDS: NITROGLYCERIN OINT 1 INCH/GM PACKET TOPICAL SCH ×4 (08:19→21:21)
[2021-08-15] MEDS: ASPIRIN 325 MG TAB PO SCH (08:19)
[2021-08-15] MEDS: CHOLECALCIFEROL 25 MCG (1000 IU) TABLET PO SCH (08:19)
--- NOTE | 2021-08-15 10:47 | P.PN ---
Subjective This is a pleasant 86 years old male with past medical history of Atrial Fibrillation, GERD, Hypertension, Osteoarthritis, kidney stones, heart murmur, diverticulosis.,had duodenal ulcer status post cauterization , neuropathy, History of coronary artery disease status post Heart Catheterization With Stent, Patient was just recently discharged from the hospital for 08/05-08/13 for gradually worsening kidney disease with acute kidney injury however patient was refusing hemodialysis recommended by russian rubber. The seminal presents with generalized weakness, dyspnea and bilateral leg edema. Also has some difficulty with walking and balance. But no chest pain, no coughing. His blood pressure was elevated at home when he checked it. He denies abdominal pain or diarrhea. His able to make urine but denies any dysuria. He denies smoking, alcohol or illicit tracts. Vitals looks stable, blood pressure is slightly elevated. Labs reviewed, CBC is unremarkable except for anemia with hemoglobin of 9.4. Creatinine is close to baseline at 5.5, potassium 2 is elevated at 6.2. Troponin elevated 0.07 and 0.06. ProBNP is elevated to 11,700. Coronavirus not detected. Chest x-ray: Cardiomegaly. No acute pulmonary process In the emergency room patient received aspirin 324 mg, 40 mg of IV Lasix, sodium bicarbonate, started on heparin drip. I talked to the patient today and his total refusing dialysis. Also there appears heparin drip. Patient was started on subcu heparin as stated. Risks and benefits are explained for him Nephrology and cartilage team were consulted from emergency room 08/15/2021 In sitting in chair, fully awake and oriented, is pleasant and smiling. Denies any pain. He states his breathing is better and his leg swelling is improved compared to yesterday. Vitals are stable. Repeat labs from today are pending. Patient evaluated by adjunct instructor chemistry and recommended to continue with the same treatment. Sociology Research Assistant also seen the patient regularly. He is kept on IV Lasix 40 mg twice a day. No indication for hemodialysis per russian rubber, however patient refuses any dialysis when I talked to him yesterday. We will order PT/OT for evaluation tomorrow Objective - Vital Signs Vital signs: Vital Signs Temp 97.8 F 08/14/21 20:00 Pulse 68 08/15/21 08:00 Resp 16 08/15/21 08:00 BP 145/86 08/15/21 08:00 Pulse Ox 97 08/15/21 08:00 Intake & Output 08/14/21 08/15/21 08/15/21 19:59 06:59 18:59 Intake Total 180 Output Total Balance 180 Weight Intake: IV Invasive Line 1 Oral 180 Output: Urine Other: Voiding Method Urinal # Voids 1 # Bowel Movements 1 - Exam GENERAL: The patient is alert and oriented x2-3, not in any acute distress. Well developed, well nourished. HEENT: Pupils are round and equally reacting to light. EOMI. No scleral icterus. No conjunctival pallor. Normocephalic, atraumatic. No pharyngeal erythema. No thyromegaly. CARDIOVASCULAR: S1 and S2 present. No murmurs, rubs, or gallops. PULMONARY: Chest is clear to auscultation, no wheezing or crackles. ABDOMEN: Soft, nontender, nondistended, normoactive bowel sounds. No palpable organomegaly. MUSCULOSKELETAL: No joint swelling or deformity. -EXTREMITIES: No cyanosis, clubbing, improving bilateral pitting leg edema. NEUROLOGICAL: Gross neurological examination did not reveal any focal deficits. SKIN: No rashes. no petechiae. - Labs CBC & Chem 7: 08/14/21 02:00 08/14/21 08:57 Assessment and Plan Assessment: Acute kidney injury from cardiorenal syndrome Elevated troponin, most likely secondary to renal disease. Rule out cardiac causes Chronic kidney disease, stage V with patient refusing renal replacement therapy. 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 Hypertension History of atrial fibrillation History of coronary artery disease status post stent History of duodenal ulcer status post cauterization History of neuropathy History of osteoarthritis History of kidney stone History of GERD Plan: This is a pleasant 86 years old male who presents with renal failure Nephrology consult Monitor input and output Cardiology consult for elevated troponin Labs and medication were reviewed.. Continue same treatment. Continue with symptomatic treatment. Resume home medication. Monitor lytes and vitals. DVT and GI prophylaxis. Further recommendations depends on the clinical course of the patient DVT prophylaxis: heparin GI Prophylaxis: Pepcid PT/OT: Pending Prognosis is guarded
[2021-08-15 11:00] LABS: Basophils % (A) 1 %; Eosinophils # (A) 0.1 k/uL (0-0.7); Eosinophils % (A) 3 %; HCT 26.8 % (39.0-53.0); HGB 8.9 gm/dL (13.0-17.5); Lymphocytes # (A) 0.5 k/uL (1.0-4.8); Lymphocytes % (A) 12 %; MCH 32.5 pg (25.0-35.0); MCHC 33.2 g/dL (31.0-37.0); MCV 97.8 fL (80.0-100.0); Mean Platelet Volume 7.8; Monocytes # (A) 0.3 k/uL (0-1.0); Monocytes % (A) 6 %; Neutrophils # (A) 3.3 k/uL (1.3-7.7); Neutrophils % (A) 75 %; Platelet Count 133 k/uL (150-450); RBC 2.74 m/uL (4.30-5.90); RDW 14.8 % (11.5-15.5); WBC 4.4 k/uL (3.8-10.6)
[2021-08-15 11:19] LABS: Calcium 8.1 mg/dL (8.4-10.2)
--- NOTE | 2021-08-15 11:40 | PN ---
PROGRESS NOTE The patient is seen for followup for CKD NKF stage 5. He was admitted with volume overload and hyperkalemia. The patient continues to refuse dialysis. This morning he is comfortable. Denies any significant complaints. No chest pain. PHYSICAL EXAMINATION: Blood pressure is 145/86, heart rate 68 per minute. Patient is afebrile. Examination of the heart S1, S2. Examination of lungs decreased breath sounds at the bases. Abdomen is soft, nontender. Examination of lower extremities shows no significant edema. DOLL MAKER exam grossly intact. LAB: Show sodium of 139, potassium 5.4, BUN 88, serum creatinine 5.73 yesterday. ASSESSMENT: 1. CKD stage 5 with no plans for renal replacement therapy. 2. Hyperkalemia associated with advanced renal failure, currently improved maintained on Lokelma at home. We will increase that to twice a week. 3. Chronic kidney disease mineral bone disorder, maintained on PhosLo. 4. Metabolic acidosis currently maintained on sodium bicarb, etiology is renal failure. 5. Anemia of chronic disease maintained on Aranesp. PLAN: Increase Lokelma to twice a week for hyperkalemia post discharge. Continue with Lasix IV for now and switch to p.o. tomorrow or upon discharge. Follow up as outpatient in about one week's time. MMODL / IJN: [id number] /
[2021-08-16] MEDS: MELATONIN 3 MG TABLET PO PRN (01:03)
[2021-08-16 04:05] VITALS: RESP 16
[2021-08-16] MEDS: PANTOPRAZOLE 40 MG TABLET PO SCH (06:56)
[2021-08-16] MEDS: CALCIUM ACETATE 667 MG TAB PO SCH ×2 (06:56→12:14)
[2021-08-16] MEDS: CYANOCOBALAMIN 500 MCG TAB PO SCH (08:03)
[2021-08-16] MEDS: ASPIRIN 325 MG TAB PO SCH (08:03)
[2021-08-16] MEDS: SODIUM BICARBONATE TAB 650 MG TAB PO SCH (08:03)
[2021-08-16] MEDS: hydrALAZINE HCL 25 MG TAB PO SCH (08:03)
[2021-08-16] MEDS: METOPROLOL TARTRATE 12.5 MG TAB PO SCH (08:03)
[2021-08-16] MEDS: NITROGLYCERIN OINT 1 INCH/GM PACKET TOPICAL SCH ×2 (08:03→12:14)
[2021-08-16] MEDS: CHOLECALCIFEROL 25 MCG (1000 IU) TABLET PO SCH (08:03)
[2021-08-16] MEDS: FUROSEMIDE 10 MG/ML 4 ML VIAL IV SCH (08:04)
[2021-08-16] MEDS: HEPARIN SODIUM,PORCINE/PF 5,000 UNIT/0.5 ML SYRINGE SQ SCH (08:06)
[2021-08-16 08:13] VITALS: TEMP 97.6
[2021-08-16 08:37] LABS: Basophils % (A) 1 %; Eosinophils # (A) 0.1 k/uL (0-0.7); Eosinophils % (A) 3 %; HGB 9.5 gm/dL (13.0-17.5); Lymphocytes # (A) 0.7 k/uL (1.0-4.8); Lymphocytes % (A) 15 %; MCH 33.8 pg (25.0-35.0); MCHC 34.1 g/dL (31.0-37.0); MCV 99.1 fL (80.0-100.0); Macrocytosis Slight; Mean Platelet Volume 7.9; Monocytes # (A) 0.4 k/uL (0-1.0); Monocytes % (A) 8 %; Neutrophils # (A) 3.2 k/uL (1.3-7.7); Neutrophils % (A) 70 %; Platelet Count 130 k/uL (150-450); RBC 2.82 m/uL (4.30-5.90); RDW 14.7 % (11.5-15.5); WBC 4.6 k/uL (3.8-10.6)
[2021-08-16 08:44] LABS: Calcium 8.4 mg/dL (8.4-10.2)
--- NOTE | 2021-08-16 10:31 | P.PN ---
Subjective Patient is seen in follow-up for hyperkalemia and chronic kidney disease. Renal function stable. Potassium level stable. Has been voiding. No active complaints. Vital signs are stable. General: The patient appeared well nourished and normally developed. HEENT: Head exam is unremarkable. LUNGS: Breath sounds decreased. HEART: Rate and Rhythm are regular. ABDOMEN: Soft, no distention. EXTREMITITES: No edema. Objective - Vital Signs Vital signs: Vital Signs Temp 97.6 F 08/16/21 08:00 Pulse 72 08/16/21 08:00 Resp 16 08/16/21 08:00 BP 159/77 08/16/21 08:00 Pulse Ox 99 08/16/21 08:00 Intake & Output 08/15/21 08/16/21 08/16/21 18:59 06:59 18:59 Intake Total 600 118 Output Total 925 Balance 600 -925 118 Weight 90.1 kg Intake: Oral 600 118 Output: Urine 925 Other: Voiding Method Urinal Urinal # Voids 2 # Bowel Movements 1 - Labs CBC & Chem 7: 08/16/21 07:11 08/16/21 07:11 Labs: Abnormal Lab Results - Last 24 Hours (Table) 08/15/21 08/15/21 08/16/21 Range/Units 10:21 10:21 07:11 RBC 2.74 L 2.82 L (4.30-5.90) m/uL Hgb 8.9 L 9.5 L (13.0-17.5) gm/dL Hct 26.8 L 28.0 L (39.0-53.0) % Plt Count 133 L 130 L (150-450) k/uL Lymphocytes # 0.5 L 0.7 L (1.0-4.8) k/uL Sodium 135 L (137-145) mmol/L Carbon Dioxide 21 L (22-30) mmol/L BUN 92 H (9-20) mg/dL Creatinine 5.87 H (0.66-1.25) mg/dL Glucose 110 H (74-99) mg/dL Calcium 8.1 L (8.4-10.2) mg/dL 08/16/21 Range/Units 07:11 RBC (4.30-5.90) m/uL Hgb (13.0-17.5) gm/dL Hct (39.0-53.0) % Plt Count (150-450) k/uL Lymphocytes # (1.0-4.8) k/uL Sodium 135 L (137-145) mmol/L Carbon Dioxide 21 L (22-30) mmol/L BUN 93 H (9-20) mg/dL Creatinine 5.92 H (0.66-1.25) mg/dL Glucose (74-99) mg/dL Calcium (8.4-10.2) mg/dL Assessment and Plan Plan: Assessment: 1. Chronic kidney disease stage V. Patient continues to refuse renal replacement therapy. 2. Hyperkalemia secondary to chronic kidney disease. 3. Chronic kidney disease mineral bone disease maintained on PhosLo. 4. Metabolic acidosis secondary to chronic kidney disease maintained on oral bicarb. 5. Anemia of chronic kidney disease maintained on Aranesp. Plan: Maintain oral Lasix. Daily lokelma upon discharge. Repeat BMP and magnesium level 2-3 days postdischarge. Follow up outpatient in 1 week.
[2021-08-16 12:17] VITALS: BP 163/89; PULSE 62
[2021-08-16 13:47] VITALS: BMI 30.2
[2021-08-16] MEDS ORDERED: FUROSEMIDE 40 MG TAB PO SCH (16:00)
[2021-08-17] MEDS ORDERED: SODIUM ZIRCONIUM CYCLOSILICATE 10 GM PACKET PO SCH (09:00)
--- NOTE | 2021-08-19 04:05 | P.DS ---
Providers Date of admission: 08/13/21 19:29 Expected date of discharge: 08/16/21 Attending physician: Dexter Banda MD Consults: 08/13/21 19:29 Consult Physician Routine Consulting Provider: Ann Elise Consult Reason/Comments: Chronic renal failure, cardiorenal syndrome Do you want consulting provider notified?: Yes Primary care physician: Osvaldo Robbins Hospital Course: Final Diagnosis Acute kidney injury from cardiorenal syndrome Elevated troponin, most likely secondary to renal disease. Ruled out ACS Chronic kidney disease, stage V with patient refusing renal replacement therapy. 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 Hypertension History of atrial fibrillation History of coronary artery disease status post stent History of duodenal ulcer status post cauterization History of neuropathy History of osteoarthritis History of kidney stone History of GERD Discharge disposition Patient is being discharged in a stable condition with guarded prognosis to home. Patient will follow-up with Dr. Robbins in the outpatient setting upon discharge. Patient is to follow-up cardiology and nephrology in the outpatient setting . Total time taken is greater than 35 minutes. Hospital course This is a pleasant 86 years old male with past medical history of Atrial Fibrillation, GERD, Hypertension, Osteoarthritis, kidney stones, heart murmur, diverticulosis.,had duodenal ulcer status post cauterization , neuropathy, History of coronary artery disease status post Heart Catheterization With Stent, Patient was just recently discharged from the hospital for 08/05-08/13 for gradually worsening kidney disease with acute kidney injury however patient was refusing hemodialysis recommended by master police detective. The seminal presents with generalized weakness, dyspnea and bilateral leg edema. Also has some difficulty with walking and balance. But no chest pain, no coughing. His blood pressure was elevated at home when he checked it. He denies abdominal pain or diarrhea. His able to make urine but denies any dysuria. He denies smoking, alcohol or illicit tracts. Vitals looks stable, blood pressure is slightly elevated. Labs reviewed, CBC is unremarkable except for anemia with hemoglobin of 9.4. Creatinine is close to baseline at 5.5, potassium 2 is elevated at 6.2. Tropon in elevated 0.07 and 0.06. ProBNP is elevated to 11,700. Coronavirus not detected. Chest x-ray: Cardiomegaly. No acute pulmonary process In the emergency room patient received aspirin 324 mg, 40 mg of IV Lasix, sodium bicarbonate, started on heparin drip. I talked to the patient today and his total refusing dialysis. Also there appears heparin drip. Patient was started on subcu heparin as stated. Risks and benefits are explained for him Nephrology and cartilage team were consulted from emergency room 08/15/2021 In sitting in chair, fully awake and oriented, is pleasant and smiling. Denies any pain. He states his breathing is better and his leg swelling is improved compared to yesterday. Vitals are stable. Repeat labs from today are pending. Patient evaluated by certified medical aide and recommended to continue with the same treatment. 3Rd Mate also seen the patient regularly. He is kept on IV Lasix 40 mg twice a day. No indication for hemodialysis per master police detective, however patient refuses any dialysis when I talked to him yesterday. We will order PT/OT for evaluation tomorrow 08/16/2021 Patient is seen in follow up this morning feeling much better and requesting to go home. Patient was evaluated by cardiology and recommending outpatient follow up on discharge and continuing current medical management. Patient was evaluated by nephrology and will continue current medications and will follow up with repeat labs and outpatient follow up with Dr. Lam. Currently no reports of chest pain, shortness of breath, or palpitations. Patient is afebrile. No reports of nausea or vomiting and patient is tolerating diet. Patient will be discharged to home today. Guarded prognosis. Patient is sitting up in the bed comfortably, no acute distress, awake alert and oriented.. HEENT: Normocephalic. Neck is supple. Pupils reactive. Nostrils clear. Oral cavity is moist. Neck reveals no JVD, carotid bruits, or thyromegaly. CHEST EXAMINATION: Trachea is central. Symmetrical expansion. Diminished breath sounds bilaterally with no wheezing or rhonchi noted CARDIAC: Normal S1, S2 with no gallops. No murmurs ABDOMEN: Soft. Bowel sounds normal. No organomegaly. No abdominal bruits. Extremities: reveal no edema. No clubbing or cyanosis Neurologically awake, alert, oriented x3 with well-coordinated movements. No focal deficits noted Skin: No rash or skin lesions. Psychiatric: Cooperative. Non-suicidal Musculoskeletal: No joint swelling or deformity. Normal range of motion. Please refer to medication reconciliation sheet for a list of medications Patient Condition at Discharge: Fair Plan - Discharge Summary Discharge Rx Participant: No New Discharge Prescriptions: New Furosemide [Lasix] 40 mg PO BID@0900,1600 30 Days #60 tab Darbepoetin Jason [Aranesp] 40 mcg SQ Q7D each Sodium Zirconium Cyclosilicate [Lokelma] 5 gm PO DAILY 30 Days #30 packet Continue Metoprolol Tartrate [Lopressor] 12.5 mg PO DAILY Pantoprazole [Protonix] 40 mg PO DAILY hydrALAZINE HCL [Apresoline] 25 mg PO TID #0 tab Calcium Acetate [PhosLo] 667 mg PO TID-W/MEALS tab [place]-3 Fatty Acids/Fish Oil [Fish Oil 1,000 mg Softgel] 1 cap PO DAILY Aspirin 81 mg PO DAILY tab Sodium Bicarbonate Tab 650 mg PO BID tab Cholecalciferol (Vitamin D3) [Vitamin D3 (125 MCG = 5,000 IU)] 125 mcg PO DAILY Cyanocobalamin (Vitamin B-12) [Vitamin B-12] 5,000 mcg PO DAILY Discontinued Sodium Zirconium Cyclosilicate [Lokelma] 5 gm PO WEEKLY #20 Isosorbide Mononitrate ER [Imdur] 30 mg PO DAILY #30 tablet Furosemide [Lasix] 20 mg PO BID 30 Days #60 tab Discharge Medication List Metoprolol Tartrate [Lopressor] 12.5 mg PO DAILY 07/28/21 [History] Pantoprazole [Protonix] 40 mg PO DAILY 07/28/21 [History] [place]-3 Fatty Acids/Fish Oil [Fish Oil 1,000 mg Softgel] 1 cap PO DAILY 08/05/21 [History] Aspirin 81 mg PO DAILY tab 08/09/21 [Rx] Calcium Acetate [PhosLo] 667 mg PO TID-W/MEALS tab 08/09/21 [Rx] Sodium Bicarbonate Tab 650 mg PO BID tab 08/09/21 [Rx] hydrALAZINE HCL [Apresoline] 25 mg PO TID #0 tab 08/09/21 [Rx] Cholecalciferol (Vitamin D3) [Vitamin D3 (125 MCG = 5,000 IU)] 125 mcg PO DAILY 08/13/21 [History] Cyanocobalamin (Vitamin B-12) [Vitamin B-12] 5,000 mcg PO DAILY 08/13/21 [History] Darbepoetin Jason [Aranesp] 40 mcg SQ Q7D each 08/16/21 [Rx] Furosemide [Lasix] 40 mg PO BID@0900,1600 30 Days #60 tab 08/16/21 [Rx] Sodium Zirconium Cyclosilicate [Lokelma] 5 gm PO DAILY 30 Days #30 packet 08/16/21 [Rx] Follow up Appointment(s)/Referral(s): Osvaldo Robbins MD [Primary Care Provider] - 08/18/21 11:40 am ([) Care,[facility] [NON-STAFF] - Román Lam DO [STAFF PHYSICIAN] - 08/20/21 9:30 am Ambulatory/Diagnostic Orders: Complete Blood Count w/diff [LAB.AMB] Time Frame: 3 Days, Location: None Select ed Activity/Diet/Wound Care/Special Instructions: Prescription for repeat labs sent to [facility] until follow-up Follow-up with primary care provider on discharge Follow-up nephrology outpatient closely in one week, also discuss Aranesp injections weekly with nephrology Repeat labs in 2-3 days to monitor CBC, BMP, magnesium Continue taking medications as prescribed Continue heart healthy renal diet of low potassium and low phosphorus Discharge Disposition: HOME WITH HOME HEALTH SERVICES
== END 2021-08-16 15:05 | disposition home health service (06) | DRG 682 ==
LOC: EC 14:33 → 3SCARD 19:29
PROVIDERS: ADMIT Internal Medicine; ATTEND Internal Medicine
DX: N17.9 Acute kidney failure, unspecified (principal); I50.43 Acute on chronic combined systolic (congestive) and diastolic (congestive) heart failure; E87.2 Acidosis; I13.2 Hypertensive heart and chronic kidney disease with heart failure and with stage 5 chronic kidney disease, or end stage renal disease; I48.19 Other persistent atrial fibrillation; D63.1 Anemia in chronic kidney disease; Z20.822 Contact with and (suspected) exposure to COVID-19; N18.5 Chronic kidney disease, stage 5; E78.5 Hyperlipidemia, unspecified; E87.5 Hyperkalemia; I25.10 Atherosclerotic heart disease of native coronary artery without angina pectoris; I34.0 Nonrheumatic mitral (valve) insufficiency; Z96.1 Presence of intraocular lens; M89.8X9 Other specified disorders of bone, unspecified site; M89.9 Disorder of bone, unspecified; K26.9 Duodenal ulcer, unspecified as acute or chronic, without hemorrhage or perforation; K21.9 Gastro-esophageal reflux disease without esophagitis; M19.90 Unspecified osteoarthritis, unspecified site; M79.89 Other specified soft tissue disorders; G62.9 Polyneuropathy, unspecified; R01.1 Cardiac murmur, unspecified; Z95.5 Presence of coronary angioplasty implant and graft; Z91.19 Patient's noncompliance with other medical treatment and regimen; Z91.15 Patient's noncompliance with renal dialysis; Z87.11 Personal history of peptic ulcer disease; Z87.442 Personal history of urinary calculi; Z79.82 Long term (current) use of aspirin; Z79.899 Other long term (current) drug therapy; J40 Bronchitis, not specified as acute or chronic
CPT/HCPCS: 36415; 71046; 80048; 80053; 83735; 83880; 84484; 85025; 85610; 85730; 87635; 93005; 96374; 99285

== ENCOUNTER 2021-12-10 14:36 | Inpatient (IN) | payer MEDICARE, OTHER ==
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
[2021-12-10 15:45] LABS: Anisocytosis Slight; Basophils % (A) 0 %; Eosinophils # (A) 0.1 k/uL (0-0.7); Eosinophils % (A) 1 %; HCT 25.2 % (39.0-53.0); HGB 7.8 gm/dL (13.0-17.5); Hypochromasia Marked; Lymphocytes # (A) 0.4 k/uL (1.0-4.8); Lymphocytes % (A) 8 %; MCH 32.8 pg (25.0-35.0); MCHC 31.1 g/dL (31.0-37.0); MCV 105.3 fL (80.0-100.0); Macrocytosis Marked; Mean Platelet Volume 7.7; Monocytes # (A) 0.4 k/uL (0-1.0); Monocytes % (A) 8 %; Neutrophils # (A) 3.9 k/uL (1.3-7.7); Neutrophils % (A) 79 %; Platelet Count 145 k/uL (150-450); RBC 2.39 m/uL (4.30-5.90); RDW 17.7 % (11.5-15.5); WBC 4.9 k/uL (3.8-10.6)
--- NOTE | 2021-12-10 15:46 | XR ---
EXAMINATION TYPE: XR chest 2V DATE OF EXAM: 12/10/2021 COMPARISON: 08/13/2021 HISTORY: Shortness of breath TECHNIQUE: Frontal and lateral views of the chest are obtained. FINDINGS: Scattered senescent parenchymal changes noted. Hyperinflation compatible with COPD. There is evidence of cardiomegaly with pulmonary venous congestion and small effusion. Lung volumes a re diminished. Mediastinal structures are stable and grossly unremarkable. No evidence for hilar prominence. Degenerative changes dorsal spine. IMPRESSION: 1. Features of mild congestive failure.
[2021-12-10 15:58] LABS: Albumin 3.5 g/dL (3.5-5.0); Calcium 8.1 mg/dL (8.4-10.2); Total Bilirubin 0.5 mg/dL (0.2-1.3); Total Protein 6.2 g/dL (6.3-8.2)
[2021-12-10 16:11] LABS: Potassium 7.4 mmol/L (3.5-5.1)
[2021-12-10] MEDS ORDERED: SODIUM BICARB 8.4% 50 ML SYR (1 MEQ/ML) IV ONE (16:15)
[2021-12-10] MEDS ORDERED: INSULIN REGULAR 100 UNIT/ML VIAL (IV) IV ONE (16:15)
[2021-12-10] MEDS ORDERED: DEXTROSE 50% SYRINGE 50 ML IVP ONE (16:15)
[2021-12-10] MEDS ORDERED: ALBUTEROL NEB (CONC) 2.5 MG/0.5 ML INHALATION ONE (16:15)
[2021-12-10 16:18] LABS: INR 1.1 (<1.2); Partial Thromboplastin Time 24.6 sec (22.0-30.0); Prothrombin Time 11.4 sec (9.0-12.0)
[2021-12-10] MEDS ORDERED: NALOXONE 0.4 MG/ML 1 ML VIAL IV PRN (16:25)
[2021-12-10 16:28] LABS: Glucose,Whole Blood 99 mg/dL (75-99)
[2021-12-10] MEDS ORDERED: CALCIUM GLUCONATE 1 GM in SODIUM CHLORIDE 0.9% 100 ML IVPB ONE (16:30)
[2021-12-10 16:39] LABS: Ovalocytes Present; Poikilocytosis (M) Present
[2021-12-10] MEDS ORDERED: SODIUM ZIRCONIUM CYCLOSILICATE 10 GM PACKET PO ONE (17:00)
[2021-12-10 17:46] LABS: Glucose,Whole Blood 80 mg/dL (75-99)
[2021-12-10] MEDS: SODIUM BICARBONATE TAB 650 MG TAB PO SCH (21:42)
[2021-12-10] MEDS: FUROSEMIDE 10 MG/ML 10 ML VIAL IV SCH (21:42)
[2021-12-10 21:44] LABS: Albumin 3.6 g/dL (3.5-5.0); Calcium 8.4 mg/dL (8.4-10.2); Total Bilirubin 0.6 mg/dL (0.2-1.3); Total Protein 6.3 g/dL (6.3-8.2)
[2021-12-10 21:52] LABS: Potassium 6.6 mmol/L (3.5-5.1)
[2021-12-10] MEDS: amLODIPine 5 MG TAB PO SCH (23:38)
[2021-12-10] MEDS ORDERED: SODIUM ZIRCONIUM CYCLOSILICATE 10 GM PACKET PO SCH (23:45)
[2021-12-11] MEDS: ACETAMINOPHEN TAB 325 MG TAB PO PRN ×2 (03:44→23:39)
[2021-12-11] MEDS ORDERED: INSULIN REGULAR 100 UNIT/ML VIAL (IV) IV ONE ×2 (06:48→16:02)
[2021-12-11] MEDS ORDERED: DEXTROSE 50% SYRINGE 50 ML IVP STA (06:48)
[2021-12-11 08:05] LABS: HGB 7.7 gm/dL (13.0-17.5); RBC 2.34 m/uL (4.30-5.90); WBC 4.8 k/uL (3.8-10.6)
[2021-12-11 08:06] LABS: Anisocytosis Slight; Basophils % (A) 1 %; Eosinophils # (A) 0.1 k/uL (0-0.7); Eosinophils % (A) 2 %; HCT 24.8 % (39.0-53.0); Hypochromasia Marked; Lymphocytes # (A) 0.6 k/uL (1.0-4.8); Lymphocytes % (A) 12 %; MCH 32.8 pg (25.0-35.0); MCV 105.8 fL (80.0-100.0); Mean Platelet Volume 8.3; Monocytes # (A) 0.5 k/uL (0-1.0); Monocytes % (A) 9 %; Neutrophils # (A) 3.5 k/uL (1.3-7.7); Neutrophils % (A) 73 %; Platelet Count 136 k/uL (150-450)
[2021-12-11 08:11] LABS: Macrocytosis Marked
[2021-12-11 08:35] LABS: Potassium 6.3 mmol/L (3.5-5.1)
[2021-12-11] MEDS ORDERED: SODIUM BICARB 8.4% 50 ML SYR (1 MEQ/ML) IV STA (08:49)
[2021-12-11] MEDS ORDERED: hydrALAZINE HCL 25 MG TAB PO SCH (09:00)
[2021-12-11] MEDS ORDERED: CALCIUM GLUCONATE 1 GM in SODIUM CHLORIDE 0.9% 100 ML IVPB ONE (09:00)
[2021-12-11] MEDS ORDERED: NON FORMULARY DRUG (Ubidecarenone [Co Q-10] 100 MG Capsule) PO SCH (09:00)
[2021-12-11] MEDS ORDERED: hydrALAZINE HCL 20 MG/ML 1 ML VIAL IVP PRN (09:04)
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
[2021-12-11] MEDS: CYANOCOBALAMIN 500 MCG TAB PO SCH (09:30)
[2021-12-11] MEDS: METOPROLOL TARTRATE 12.5 MG TAB PO SCH (09:30)
[2021-12-11] MEDS: PANTOPRAZOLE 40 MG TABLET PO SCH (09:30)
[2021-12-11] MEDS: ISOSORBIDE MONONITRATE ER 30 MG TAB.ER.24H PO SCH (09:31)
[2021-12-11] MEDS: SODIUM BICARBONATE TAB 650 MG TAB PO SCH ×2 (09:31→22:30)
[2021-12-11] MEDS: CHOLECALCIFEROL 125 MCG (5000 IU) TABLET PO SCH (09:31)
[2021-12-11] MEDS: hydrALAZINE HCL 50 MG TAB PO SCH ×3 (09:31→22:30)
[2021-12-11] MEDS: ASPIRIN 81 MG PO SCH (09:31)
[2021-12-11] MEDS: amLODIPine 5 MG TAB PO SCH ×2 (09:31→22:30)
[2021-12-11] MEDS: FUROSEMIDE 10 MG/ML 10 ML VIAL IV SCH ×2 (09:32→22:30)
[2021-12-11] MEDS: SODIUM ZIRCONIUM CYCLOSILICATE 10 GM PACKET PO SCH ×3 (11:46→22:30)
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
[2021-12-11] MEDS ORDERED: ALBUTEROL NEB (CONC) 2.5 MG/0.5 ML INHALATION ONE (16:02)
[2021-12-11] MEDS ORDERED: DEXTROSE 50% SYRINGE 50 ML IVP ONE (16:02)
[2021-12-11 17:34] LABS: % Iron Saturation 15.85 (15.00-50.00); Ferritin 53.2 ng/mL (22.0-322.0)
[2021-12-12] MEDS: ONDANSETRON 4 MG/2 ML VIAL IVP PRN (05:26)
[2021-12-12 08:13] LABS: Anisocytosis Slight; Basophils % (A) 1 %; Eosinophils # (A) 0.1 k/uL (0-0.7); Eosinophils % (A) 2 %; HCT 23.8 % (39.0-53.0); HGB 7.5 gm/dL (13.0-17.5); Hypochromasia Marked; Lymphocytes # (A) 0.5 k/uL (1.0-4.8); Lymphocytes % (A) 10 %; MCH 33.5 pg (25.0-35.0); MCHC 31.5 g/dL (31.0-37.0); Macrocytosis Marked; Mean Platelet Volume 7.7; Monocytes # (A) 0.4 k/uL (0-1.0); Monocytes % (A) 7 %; Neutrophils # (A) 3.7 k/uL (1.3-7.7); Neutrophils % (A) 78 %; Platelet Count 144 k/uL (150-450); RBC 2.24 m/uL (4.30-5.90); RDW 17.3 % (11.5-15.5); WBC 4.8 k/uL (3.8-10.6)
[2021-12-12 08:17] LABS: MCV 106.2 fL (80.0-100.0)
[2021-12-12 08:31] LABS: Calcium 7.7 mg/dL (8.4-10.2); Magnesium 1.8 mg/dL (1.6-2.3); Phosphorus 5.5 mg/dL (2.5-4.5)
[2021-12-12 08:34] LABS: Potassium 6.1 mmol/L (3.5-5.1)
[2021-12-12] MEDS: CHOLECALCIFEROL 125 MCG (5000 IU) TABLET PO SCH (08:44)
[2021-12-12] MEDS: hydrALAZINE HCL 50 MG TAB PO SCH ×3 (08:44→20:19)
[2021-12-12] MEDS: ASPIRIN 81 MG PO SCH (08:44)
[2021-12-12] MEDS: FUROSEMIDE 10 MG/ML 10 ML VIAL IV SCH ×2 (08:44→20:18)
[2021-12-12] MEDS: ISOSORBIDE MONONITRATE ER 30 MG TAB.ER.24H PO SCH (08:44)
[2021-12-12] MEDS: amLODIPine 5 MG TAB PO SCH ×2 (08:44→20:19)
[2021-12-12] MEDS: CYANOCOBALAMIN 500 MCG TAB PO SCH (08:44)
[2021-12-12] MEDS: PANTOPRAZOLE 40 MG TABLET PO SCH (08:44)
[2021-12-12] MEDS: METOPROLOL TARTRATE 12.5 MG TAB PO SCH (08:44)
[2021-12-12] MEDS: SODIUM BICARBONATE TAB 650 MG TAB PO SCH ×4 (08:44→20:19)
--- NOTE | 2021-12-12 08:59 | P.PN ---
Subjective Patient is seen in follow-up for chronic kidney disease and hyperkalemia. Potassium level 6.1 this morning. Has been voiding. Denies chest pain or shortness of breath. No vomiting or diarrhea. Vital signs are stable. General: The patient appeared well nourished and normally developed. HEENT: Head exam is unremarkable. LUNGS: Breath sounds decreased. HEART: Rate and Rhythm are regular. ABDOMEN: Soft, no distention. EXTREMITITES: No edema. Objective - Vital Signs Vital signs: Vital Signs Temp 97.7 F 12/12/21 03:42 Pulse 76 12/12/21 03:42 Resp 24 12/12/21 03:42 BP 137/82 12/12/21 03:42 Pulse Ox 96 12/12/21 07:48 Intake & Output 12/11/21 12/12/21 12/12/21 18:59 06:59 18:59 Intake Total 940 420 Output Total 625 425 Balance 315 -425 420 Intake: Intake, IV Titration 100 Amount Calcium Gluconate 1 gm In 100 Sodium Chloride 0.9% 100 ml @ 100 mls/hr IVPB ONCE ONE Rx#:[id number] Oral 840 420 Output: Urine 625 425 Other: Voiding Method Urinal Urinal - Labs CBC & Chem 7: 12/12/21 06:31 12/12/21 06:31 Labs: Abnormal Lab Results - Last 24 Hours (Table) 12/11/21 12/11/21 12/12/21 Range/Units 12:24 12:24 06:31 RBC (4.30-5.90) m/uL Hgb (13.0-17.5) gm/dL Hct (39.0-53.0) % MCV (80.0-100.0) fL RDW (11.5-15.5) % Plt Count (150-450) k/uL Lymphocytes # (1.0-4.8) k/uL Macrocytosis Sodium 135 L (137-145) mmol/L Potassium 5.7 H 6.1 H* (3.5-5.1) mmol/L Chloride 108 H (98-107) mmol/L Carbon Dioxide 18 L (22-30) mmol/L BUN 97 H (9-20) mg/dL Creatinine 7.27 H* (0.66-1.25) mg/dL Calcium 7.7 L (8.4-10.2) mg/dL Phosphorus 5.5 H (2.5-4.5) mg/dL Iron 38 L (65-175) ug/dL Transferrin 169.0 L (204.0-354.0) mg/dL 12/12/21 Range/Units 06:31 RBC 2.24 L (4.30-5.90) m/uL Hgb 7.5 L (13.0-17.5) gm/dL Hct 23.8 L (39.0-53.0) % MCV 106.2 H (80.0-100.0) fL RDW 17.3 H (11.5-15.5) % Plt Count 144 L (150-450) k/uL Lymphocytes # 0.5 L (1.0-4.8) k/uL Macrocytosis Marked A Sodium (137-145) mmol/L Potassium (3.5-5.1) mmol/L Chloride (98-107) mmol/L Carbon Dioxide (22-30) mmol/L BUN (9-20) mg/dL Creatinine (0.66-1.25) mg/dL Calcium (8.4-10.2) mg/dL Phosphorus (2.5-4.5) mg/dL Iron (65-175) ug/dL Transferrin (204.0-354.0) mg/dL Assessment and Plan Plan: Assessment: 1. Chronic kidney disease stage V. Patient continues to refuse renal replacement therapy. 2. Hyperkalemia secondary to chronic kidney disease and acidosis. 3. Metabolic acidosis secondary to chronic kidney disease. 4. Chronic kidney disease mineral bone disease maintained on calcitriol. 5. Volume overload. 6. Anemia of chronic kidney disease. Iron deficiency noted. 7. Chronic diastolic CHF with mild to moderate mitral regurgitation and pulmonary hypertension. 8. Hypertension with chronic kidney disease. Plan: Increase oral bicarb to 1300 mg 3 times daily. Maintain IV Lasix 80 mg twice daily. Maintain lokelma 10 g tid. Phosphorus 5.5. Repeat potassium level at 1 PM. Add IV iron. Patient continues to refuse renal replacement therapy. He is also refusing IV medications including IV insulin and IV bicarb for hyperkalemia management.
[2021-12-12] MEDS: SODIUM FERRIC GLUCONAT-SUCROSE 125 MG in SODIUM CHLORIDE 0.9% 100 ML IVPB SCH (09:50)
[2021-12-12] MEDS: SODIUM ZIRCONIUM CYCLOSILICATE 10 GM PACKET PO SCH ×3 (12:31→20:23)
[2021-12-12] MEDS: ACETAMINOPHEN TAB 325 MG TAB PO PRN (18:55)
[2021-12-12] MEDS: HYDROcodone/APAP 10-325MG 1 EACH TAB PO PRN (20:19)
--- NOTE | 2021-12-12 23:30 | P.PN ---
Subjective Progress Note Date: 12/12/21 Principal diagnosis: Acute on chronic renal failure Critical hyperkalemia 86yo M with PMH of CKD, CHF, COPD who presents to the ER today via ambulance wit h a complaint of progressively worsening shortness of breath. Patient reports that his Lasix prescription ran out a couple of weeks and he hasnt been able to have it refilled. Patient denies any chest pain, fever or cough. Patient states that he is followed with Dr. Elise for his kidney problems that he is call the office regarding his Lasix prescription. Patient states that he knows he has bad kidneys but will never gone dialysis he states when he gets that bad just to let him go and let him . Patient states that he just needs a medication to help keep his potassium under control. Blood work completed in ED reveals a WBC of 4.9, hemoglobin 7.8 and platelet count of 145, sodium 138, potassium 6.6 with B UN/creatinine of 100/7.37 and blood glucose of 70 Patient was treated with IV insulin, dextrose, bicarbonate and calcium per hypokalemia protocol and is admitted for further treatment of hyperkalemia Patient is seen and evaluated at follow up Potassium is at 6.1 this morning Patient remains non compliant with IV dextrose and insulin Nephrology on board; Planning to adjust medications in form of increasing oral bicarb up to 1300 milligrams TID; continue IV lasix 80 mg BID; and continue with lokema 10 grams TID IV iron has been added for anemia of chronic disease ; repeat potassium levels at 1 pm Patient continues to refuse renal replacement therapy and IV medications Objective - Vital Signs Vital signs: Vital Signs Temp 97.6 F 12/12/21 12:42 Pulse 75 12/12/21 12:42 Resp 20 12/12/21 12:42 BP 126/63 12/12/21 12:42 Pulse Ox 97 12/12/21 12:42 Intake & Output 12/11/21 12/12/21 12/12/21 18:59 06:59 18:59 Intake Total 940 600 Output Total 625 425 125 Balance 315 -425 475 Intake: Intake, IV Titration 100 Amount Calcium Gluconate 1 gm In 100 Sodium Chloride 0.9% 100 ml @ 100 mls/hr IVPB ONCE ONE Rx#:[id number] Oral 840 600 Output: Urine 625 425 125 Other: Voiding Method Urinal Urinal Urinal - Exam GENERAL: The patient is alert and oriented x3, not in any acute distress. Well developed, well nourished. HEENT: Pupils are round and equally reacting to light. EOMI. No scleral icterus. No conjunctival pallor. Normocephalic, atraumatic. No pharyngeal erythema. No thyromegaly. CARDIOVASCULAR: S1 and S2 present. No murmurs, rubs, or gallops. PULMONARY: Chest is clear to auscultation, no wheezing or crackles. ABDOMEN: Soft, nontender, nondistended, normoactive bowel sounds. No palpable organomegaly. MUSCULOSKELETAL: No joint swelling or deformity. EXTREMITIES: No cyanosis, clubbing, or pedal edema. NEUROLOGICAL: Gross neurological examination did not reveal any focal deficits. SKIN: No rashes - Labs CBC & Chem 7: 12/12/21 06:31 12/12/21 16:54 Labs: Abnormal Lab Results - Last 24 Hours (Table) 12/11/21 12/12/21 12/12/21 Range/Units 12:24 06:31 06:31 RBC 2.24 L (4.30-5.90) m/uL Hgb 7.5 L (13.0-17.5) gm/dL Hct 23.8 L (39.0-53.0) % MCV 106.2 H (80.0-100.0) fL RDW 17.3 H (11.5-15.5) % Plt Count 144 L (150-450) k/uL Lymphocytes # 0.5 L (1.0-4.8) k/uL Macrocytosis Marked A Sodium 135 L (137-145) mmol/L Potassium 6.1 H* (3.5-5.1) mmol/L Chloride 108 H (98-107) mmol/L Carbon Dioxide 18 L (22-30) mmol/L BUN 97 H (9-20) mg/dL Creatinine 7.27 H* (0.66-1.25) mg/dL Calcium 7.7 L (8.4-10.2) mg/dL Phosphorus 5.5 H (2.5-4.5) mg/dL Iron 38 L (65-175) ug/dL Transferrin 169.0 L (204.0-354.0) mg/dL 03/06/22 Range/Units 12:38 RBC (4.30-5.90) m/uL Hgb (13.0-17.5) gm/dL Hct (39.0-53.0) % MCV (80.0-100.0) fL RDW (11.5-15.5) % Plt Count (150-450) k/uL Lymphocytes # (1.0-4.8) k/uL Macrocytosis Sodium (137-145) mmol/L Potassium 5.8 H (3.5-5.1) mmol/L Chloride (98-107) mmol/L Carbon Dioxide (22-30) mmol/L BUN (9-20) mg/dL Creatinine (0.66-1.25) mg/dL Calcium (8.4-10.2) mg/dL Phosphorus (2.5-4.5) mg/dL Iron (65-175) ug/dL Transferrin (204.0-354.0) mg/dL Assessment and Plan Assessment: 1. Dyspnea related to fluid overload secondary to acute on chronic renal failure - Patient has an elevated BNP of 25,500; chest x-ray shows mild CHF; patient was treated with Lasix in ED; is being maintained on Lasix 80 mg IV every 12 hours - We will monitor strict MARITZA's, daily weights, renal function and electrolytes; avoid nephrotoxins - Patient refuses renal replacement therapy 2. Critical hyperkalemia; Patient has received medical treatment with IV calcium, IV insulin with D50, sodium bicarb, as well as Lasix and lokelma. We will monitor blood pressure closely with further treatment as needed 3. Elevated troponin; likely related to chronic kidney disease; EKG is reviewed with no obvious ST or T-wave changes; we will continue to monitor 4. Acute on chronic renal failure; patient adamantly refuses renal replacement therapy; requesting hyperkalemia be managed with medications; we will monitor strict MARITZA's, daily weights and renal function and electrolytes 5. Anemia of chronic disease; stable at baseline 6. Hypertension; continue with home dose of metoprolol 12.5 mg daily; Norvasc 5 mg twice a day; hydralazine 25 mg 3 times a day DVT prophylaxis; SCDs/subcu heparin CODE STATUS; full code
[2021-12-13] MEDS: HYDROcodone/APAP 10-325MG 1 EACH TAB PO PRN ×3 (02:47→20:33)
--- NOTE | 2021-12-13 07:23 | XR ---
EXAMINATION TYPE: XR chest 1V DATE OF EXAM: 12/13/2021 COMPARISON: Chest x-ray 12/10/2021 HISTORY: Shortness of breath TECHNIQUE: Single frontal view of the chest is obtained. FINDINGS: Abnormal densities present at the lung bases. Heart is enlarged. Aorta is dense and ectat ic. No evident pneumothorax. Mild blunting the costophrenic angles. There are overlying leads. IMPRESSION: Correlate for pneumonia versus edema or atelectasis, there is cardiomegaly, difficult to exclude small effusions
[2021-12-13 07:59] LABS: Calcium 7.8 mg/dL (8.4-10.2); Magnesium 1.9 mg/dL (1.6-2.3); Potassium 5.9 mmol/L (3.5-5.1)
[2021-12-13] MEDS: ASPIRIN 81 MG PO SCH (08:46)
[2021-12-13] MEDS: CHOLECALCIFEROL 125 MCG (5000 IU) TABLET PO SCH (08:46)
[2021-12-13] MEDS: FUROSEMIDE 10 MG/ML 10 ML VIAL IV SCH ×2 (08:46→20:33)
[2021-12-13] MEDS: PANTOPRAZOLE 40 MG TABLET PO SCH ×2 (08:46→17:40)
[2021-12-13] MEDS: hydrALAZINE HCL 50 MG TAB PO SCH ×3 (08:47→20:33)
[2021-12-13] MEDS: METOPROLOL TARTRATE 12.5 MG TAB PO SCH (08:47)
[2021-12-13] MEDS: SODIUM BICARBONATE TAB 650 MG TAB PO SCH ×3 (08:47→20:40)
[2021-12-13] MEDS: ISOSORBIDE MONONITRATE ER 30 MG TAB.ER.24H PO SCH (08:47)
[2021-12-13] MEDS: amLODIPine 5 MG TAB PO SCH ×2 (08:47→20:32)
[2021-12-13] MEDS: CYANOCOBALAMIN 500 MCG TAB PO SCH (08:47)
[2021-12-13] MEDS: SODIUM ZIRCONIUM CYCLOSILICATE 10 GM PACKET PO SCH ×2 (08:50→20:23)
[2021-12-13] MEDS: SODIUM FERRIC GLUCONAT-SUCROSE 125 MG in SODIUM CHLORIDE 0.9% 100 ML IVPB SCH (10:23)
--- NOTE | 2021-12-13 12:33 | P.PN ---
Subjective Patient is seen for follow-up for CK D stage IV and hyperkalemia. Patient has been refusing dialysis. Potassium remains elevated at 5.9-6 mg/L. Patient is maintained on low-calorie 10 g 3 times a day. He is complaining of pain all over. He states he needs a chiropractor. Patient has not been eating much. No obvious nausea or vomiting at this time. Objective - Vital Signs Vital signs: Vital Signs Temp 97.9 F 12/13/21 09:00 Pulse 67 12/13/21 09:00 Resp 67 H 12/13/21 09:00 BP 116/64 12/13/21 09:00 Pulse Ox 94 L 12/13/21 09:00 Intake & Output 12/12/21 12/13/21 12/13/21 18:59 06:59 18:59 Intake Total 700 240 Output Total 575 250 Balance 125 -10 Weight 94.7 kg Intake: Intake, IV Titration 100 Amount Sodium Ferric Gluconat- 100 Sucrose 125 mg In Sodium Chloride 0.9% 100 ml @ 100 mls/hr IVPB DAILY [facility] [place] Rx#:[id number] Oral 600 240 Output: Urine 575 250 Other: Voiding Method Urinal Urinal Urinal - Exam Awake comfortable not in any acute distress. Examination of the heart S1 and S2 Examination lungs bilateral breath sounds are heard Abdomen is soft nontender Examination lower extremity shows edema 1+ bilaterally with chronic skin changes. RN ACUTE exam grossly intact - Labs CBC & Chem 7: 12/12/21 06:31 12/13/21 05:17 Labs: Abnormal Lab Results - Last 24 Hours (Table) 12/12/21 12/12/21 12/13/21 Range/Units 12:38 16:54 05:17 Sodium 135 L (137-145) mmol/L Potassium 5.8 H 5.7 H 5.9 H (3.5-5.1) mmol/L Carbon Dioxide 19 L (22-30) mmol/L BUN 97 H (9-20) mg/dL Creatinine 7.54 H* (0.66-1.25) mg/dL Calcium 7.8 L (8.4-10.2) mg/dL Assessment and Plan Assessment: 1. Chronic kidney disease stage V with no plans for renal replacement therapy. Patient refuses dialysis. 2. Hyperkalemia associated with CK D and metabolic acidosis 3. Metabolic acidosis associated with CK D maintained on sodium bicarb 4. Anemia of chronic disease with iron deficiency 5. Chronic diastolic CHF with [id number] mitral regurg and pulmonary hypertension 6. Hypertension with CK D 7. Volume overload, currently being diuresed and refusing IV Lasix Plan: Continue by mouth bicarb and low-calorie mouth Continue to diurese patient. If he continues to refuse IV Lasix we can switch him to by mouth Continue IV iron Low potassium diet Rediscussed renal replacement therapy with the patient and at this time he declines it
--- NOTE | 2021-12-13 13:05 | US ---
EXAMINATION TYPE: US venous doppler duplex LE DATE OF EXAM: 12/13/2021 12:39 PM COMPARISON: US 2018 & 2009 CLINICAL HISTORY: leg swelling. Bilateral leg swelling Exam done portable SIDE PERFORMED: Bilateral TECHNIQUE: The lower extremity deep venous system is examined utilizing real time linear array sonog love with graded compression, doppler sonography and color-flow sonography. VESSELS IMAGED: Common Femoral Vein Deep Femoral Vein Greater Saphenous Vein * Femoral Vein Popliteal Vein Small Saphenous Vein * Proximal Calf Veins (* superficial vessels) Difficult study due to exam done with patient sitting in chair There is normal flow, compressibility, vascular waveforms. Subcutaneous edema changes are present wi thin the left lower extremity. Right Leg: Appears negative for DVT Left Leg: Appears negative for DVT IMPRESSION: No evident deep venous thrombosis within the lower extremities within the limitations of the exam from the level of the knee centrally
--- NOTE | 2021-12-13 13:07 | US ---
EXAMINATION TYPE: US scrotum with doppler. Grayscale and color Doppler Duplex imaging performed of yesika melendez scrotum. DATE OF EXAM: 12/13/2021 COMPARISON: NONE CLINICAL HISTORY: scrotal swelling . Scrotal swelling Exam done portable EXAM MEASUREMENTS: TESTICLES: Right Testicle: 2.6 x 2.1 x 2.2 cm Left Testicle: 3.2 x 2.3 x 2.4 cm EPIDIDYMIS HEAD: Right Epididymis: 1.3 cm Left Epididymis: 1.3 cm Doppler performed to assess for testicular vascularity; bilateral arterial flow seen, unable to obtai n venous flow within testicles. Presence of hydroceles: right - 5.2cm, left 5.7cm Presence of varicoceles: no Scrotal wall edema noted. Testicular echotexture is homogenous and symmetric. Difficult study due to exam done with patient sitting in chair IMPRESSION: There are limitations to the exam. Right and left hydroceles. There is scrotal sac edema.
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
[2021-12-13] MEDS: ONDANSETRON 4 MG/2 ML VIAL IVP PRN (18:24)
--- NOTE | 2021-12-13 20:02 | P.PN ---
Subjective From records 86yo M with PMH of CKD, CHF, COPD who presents to the ER today via ambulance with a complaint of progressively worsening shortness of breath. Patient reports that his Lasix prescription ran out a couple of weeks and he hasnt been able to have it refilled. Patient denies any chest pain, fever or cough. Patient states that he is followed with Dr. Elise for his kidney problems that he is call the office regarding his Lasix prescription. Patient states that he knows he has bad kidneys but will never gone dialysis he states when he gets that bad just to let him go and let him . Patient states that he just needs a medication to help keep his potassium under control. Blood work completed in ED reveals a WBC of 4.9, hemoglobin 7.8 and platelet count of 145, sodium 138, potassium 6.6 with B UN/creatinine of 100/7.37 and blood glucose of 70 Patient was treated with IV insulin, dextrose, bicarbonate and calcium per hypokalemia protocol and is admitted for further treatment of hyperkalemia Patient is seen and evaluated at follow up Potassium is at 6.1 this morning Patient remains non compliant with IV dextrose and insulin Nephrology on board; Planning to adjust medications in form of increasing oral bicarb up to 1300 milligrams TID; continue IV lasix 80 mg BID; and continue with lokema 10 grams TID IV iron has been added for anemia of chronic disease ; repeat potassium levels at 1 pm Patient continues to refuse renal replacement therapy and IV medications Subjective: I resume the care of the patient today 12/13/2021 This is a pleasant 82 years old male with multiple hospitalization, he presents with dyspnea on exertion, he is a known case o severe/advanced f chronic kidney disease, however his been refusing hemodialysis. Presents with acute on chronic CHF, both combined systolic and diastolic with ejection fraction of 55-60% prior echo and found of fluid overload and pulmonary congestion and started on IV Lasix 80 mg twice day, his potassium has been high 7.4 receiving treatment with lokelma , last dose today. Potassium is 5.7 today and hemoglobin 7.5 which is stable. Baseline 5. 5 to 7 0.0. Also he has an evidence of hemoglobin of 7.5, patient reports black stool suspicious for GI bleed, he has history of peptic ulcer disease per EGD and colonoscopy done about 2 years ago. His proBNP is elevated at 2800, he has scrotal swelling with ultrasound showing right and left hydrocele and scrotal sac edema, there is no tenderness. Leg ultrasound is negative for DVT Also patient has been complaining of from back pain, he has history of cervical degenerative disease, he says that his legs are weak but this been going on for a while now as per patient without specific medication. Patient told me he refused surgery but he wants to see chiropractor, were going to consult orthopedic surgery for this reason, orthopedic spine team recommended lumbosacral x-ray which is pending for now. It seems that his legs are chronically weak and complaining from pain in his legs, as well as ordered a t race out of the neck which was negative. However patient complains from pain from head to toe as he describes. PT/OT ordered Repeat labs in the morning Dr. Robbins team resume the care of the patient tomorrow Review of systems CONSTITUTIONAL: No fever, no malaise, no fatigue. HEENT: No recent visual problems or hearing problems. Denied any sore throat. CARDIOVASCULAR: No chest wall tenderness, PND, no palpitations, no syncope. PULMONARY: No sneezing or sore throat, no hemoptysis. GASTROINTESTINAL: No diarrhea, no nausea, no vomiting, no abdominal pain. Normoactive bowel sounds. Active Medications Generic Name Dose Route Start Last Admin Trade Name Freq PRN Reason Stop Dose Admin Acetaminophen 650 mg 12/11/21 03:41 12/12/21 18:55 Acetaminophen Tab 325 Mg Tab PO 650 mg Q6HR PRN Administration Fever and/ or Pain Hydrocodone Bitart/Acetaminophen 1 each 12/12/21 20:06 12/13/21 11:44 Hydrocodone/Apap 10-325mg 1 Each Tab PO 1 each Q6HR PRN Administration Pain Amlodipine Besylate 5 mg 12/10/21 23:30 12/13/21 08:47 Amlodipine 5 Mg Tab PO 5 mg BID [place] Administration Aspirin 81 mg 12/11/21 09:00 12/13/21 08:46 Aspirin 81 Mg PO 81 mg DAILY [place] Administration Calcitriol 0.25 mcg 12/13/21 09:00 12/13/21 08:46 Calcitriol 0.25 Mcg Cap PO 0.25 mcg MoTh [place] Administration Cholecalciferol 125 mcg 12/11/21 09:00 12/13/21 08:46 Cholecalciferol 125 Mcg (5000 Iu) Tablet PO 125 mcg DAILY [place] Administration Cyanocobalamin 5,000 mcg 12/11/21 09:00 12/13/21 08:47 Cyanocobalamin 500 Mcg Tab PO 5,000 mcg DAILY [place] Administration Furosemide 80 mg 12/10/21 21:00 12/13/21 08:46 Furosemide 10 Mg/Ml 10 Ml Vial IV 80 mg BID [place] Administration Hydralazine HCl 50 mg 12/11/21 16:00 12/13/21 17:40 Hydralazine Hcl 50 Mg Tab PO 50 mg TID [place] Administration Hydralazine HCl 10 mg 12/11/21 09:04 Hydralazine Hcl 20 Mg/Ml 1 Ml Vial IVP Q6HR PRN Blood Pressure - High Ferric Sodium Gluconate 125 mg 110 mls @ 100 mls/hr 12/12/21 10:00 12/13/21 10:23 / Sodium Chloride IVPB 12/15/21 10:01 100 mls/hr DAILY [place] Administration Isosorbide Mononitrate 30 mg 12/11/21 09:00 12/13/21 08:47 Isosorbide Mononitrate Er 30 Mg Tab.Er.24h PO 30 mg DAILY [place] Administration Metoprolol Tartrate 12.5 mg 12/11/21 09:00 12/13/21 08:47 Metoprolol Tartrate 12.5 Mg Tab PO 12.5 mg DAILY [place] Administration Naloxone HCl 0.2 mg 12/10/21 16:25 Naloxone 0.4 Mg/Ml 1 Ml Vial IV Q2M PRN Opioid Reversal Ondansetron HCl 4 mg 12/12/21 05:18 12/13/21 18:24 Ondansetron 4 Mg/2 Ml Vial IVP 4 mg Q6HR PRN Administration Nausea And Vomiting Pantoprazole Sodium 40 mg 12/13/21 17:30 12/13/21 17:40 Pantoprazole 40 Mg Tablet PO 40 mg AC-BID [place] Administration Sodium Bicarbonate 1,300 mg 12/12/21 09:00 12/13/21 17:40 Sodium Bicarbonate Tab 650 Mg Tab PO 1,300 mg TID [place] Administration Objective - Vital Signs Vital signs: Vital Signs Temp 97.9 F 12/13/21 09:00 Pulse 71 12/13/21 14:00 Resp 18 12/13/21 14:00 BP 117/68 12/13/21 12:00 Pulse Ox 96 12/13/21 12:00 Intake & Output 12/12/21 12/13/21 12/13/21 18:59 06:59 18:59 Intake Total 700 240 Output Total 575 250 Balance 125 -10 Weight 94.7 kg Intake: Intake, IV Titration 100 Amount Sodium Ferric Gluconat- 100 Sucrose 125 mg In Sodium Chloride 0.9% 100 ml @ 100 mls/hr IVPB DAILY [facility] Rx#:[id number] Oral 600 240 Output: Urine 575 250 Other: Voiding Method Urinal Urinal Urinal - Exam - GENERAL: The patient is alert and oriented x3, not in any acute distress. Generalized weakness HEENT: Pupils are round and equally reacting to light. EOMI. No scleral icterus. No conjunctival pallor. Normocephalic, atraumatic. No pharyngeal erythema. No thyromegaly. CARDIOVASCULAR: S1 and S2 present. No murmurs, rubs, or gallops. -PULMONARY: Chest is clear to auscultation, no wheezing . Bilateral basal crepitations ABDOMEN: Soft, nontender, nondistended, normoactive bowel sounds. No palpable organomegaly. MUSCULOSKELETAL: No joint swelling or deformity. - EXTREMITIES: No cyanosis, clubbing, . 1+ bilateral pitting leg edema - NEUROLOGICAL: Gross neurological cranial nerves are grossly intact. Lower extremity strength is weak/5, as chronic as per patient. SKIN: No rashes. no petechiae. - Labs CBC & Chem 7: 12/12/21 06:31 12/13/21 05:17 Labs: Abnormal Lab Results - Last 24 Hours (Table) 12/12/21 12/13/21 Range/Units 16:54 05:17 Sodium 135 L (137-145) mmol/L Potassium 5.7 H 5.9 H (3.5-5.1) mmol/L Carbon Dioxide 19 L (22-30) mmol/L BUN 97 H (9-20) mg/dL Creatinine 7.54 H* (0.66-1.25) mg/dL Calcium 7.8 L (8.4-10.2) mg/dL Assessment and Plan Assessment: -Advanced chronic kidney disease with hyperkalemia, patient has been refusing hemodialysis. There may be some mild elements of acute injury secondary to cardiorenal syndrome -Acute on chronic systolic and diastolic CHF with ejection fraction 55-60% per old echocardiogram -Iron deficiency anemia, rule out GI bleed. History of peptic ulcer disease. Surgery team consulted and planned for EGD in the morning -Atrial fibrillation, chronic, not on anticoagulation due to patient refusal and currently is also contraindicated because of possible GI bleed -Chronic back pain with chronic bilateral leg weakness, patient refused surgery, orthopedic team consulted as well as PT/OT -Hypertension -History of GERD -History of osteoarthritis Plan: This is a pleasant 86 years old male who presents with acute on chronic kidney disease, hyperkalemia, CHF, possible GI bleed and chronic back pain and weakness. 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 Monitor input and output Surgery team recommended EGD in the morning for possible GI bleed Orthopedic team consult, PT/OT Labs and medication were reviewed.. Continue same treatment. Continue with symptomatic treatment. Resume home medication. Monitor lytes and vitals. DVT and GI prophylaxis. Further recommendations as per clinical course of the patient DVT prophylaxis: No anticoagulation in view of possible GI bleed, continue with SCD GI Prophylaxis: Ppi PT/OT: Pending Prognosis is guarded
[2021-12-14] MEDS: PANTOPRAZOLE 40 MG TABLET PO SCH ×2 (05:45→16:49)
[2021-12-14 09:17] LABS: Anisocytosis Slight; HCT 24.8 % (39.0-53.0); HGB 7.7 gm/dL (13.0-17.5); Hypochromasia Marked; MCV 106.3 fL (80.0-100.0); Macrocytosis Marked; Mean Platelet Volume 8.2; Platelet Count 140 k/uL (150-450); RBC 2.34 m/uL (4.30-5.90); RDW 17.3 % (11.5-15.5); WBC 4.2 k/uL (3.8-10.6)
[2021-12-14 09:30] LABS: Calcium 8.2 mg/dL (8.4-10.2)
[2021-12-14] MEDS: SODIUM BICARBONATE TAB 650 MG TAB PO SCH ×3 (10:02→21:18)
[2021-12-14] MEDS: METOPROLOL TARTRATE 12.5 MG TAB PO SCH (10:02)
[2021-12-14] MEDS: ASPIRIN 81 MG PO SCH (10:02)
[2021-12-14] MEDS: hydrALAZINE HCL 50 MG TAB PO SCH ×3 (10:02→21:18)
[2021-12-14] MEDS: FUROSEMIDE 10 MG/ML 10 ML VIAL IV SCH ×2 (10:03→21:18)
[2021-12-14] MEDS: CHOLECALCIFEROL 125 MCG (5000 IU) TABLET PO SCH (10:03)
[2021-12-14] MEDS: CYANOCOBALAMIN 500 MCG TAB PO SCH (10:03)
[2021-12-14] MEDS: SODIUM FERRIC GLUCONAT-SUCROSE 125 MG in SODIUM CHLORIDE 0.9% 100 ML IVPB SCH (10:03)
[2021-12-14] MEDS: amLODIPine 5 MG TAB PO SCH ×2 (12:39→21:18)
[2021-12-14] MEDS: SODIUM ZIRCONIUM CYCLOSILICATE 10 GM PACKET PO SCH ×3 (12:39→21:17)
[2021-12-14] MEDS: ISOSORBIDE MONONITRATE ER 30 MG TAB.ER.24H PO SCH (12:39)
--- NOTE | 2021-12-14 13:13 | P.PN ---
Subjective Progress Note Date: 12/14/21 CHIEF COMPLAINT: Anemia HISTORY OF PRESENT ILLNESS: This is a pleasant 86-year-old with multiple comorbidities including chronic kidney disease, atrial fibrillation not on anticoagulation, congestive heart failure and COPD who had presented to the emergency department with worsening shortness of breath. On admission he was noted to be anemic with hemoglobin of 7.5. Iron studies were consistent with iron deficiency anemia. Patient has reported black stools with a history of a duodenal ulcer. He denies any abdominal pain, nausea, or vomiting. Gen. surgery was consulted for anemia, GI bleed. Patient's last EGD colonoscopy was 12/31/[address] Niño. EGD showed a duodenal bulb ulcer with high risk stigmata for bleeding, vessel was treated with epinephrine and cold probe ablation. Colonoscopy showed hemolyzed blood throughout the colon, moderate crooks diverticulosis. The patient was scheduled for EGD today to evaluate for upper GI bleed. Patient refused to sign consent and states that he has to much going on today. Patient is followed closely with nephrology has been recommending hemodialysis, patient finally agreed and plan is for dialysis catheter placement possibly today. He states that he has back pain, leg pain and he is not proceeding with any upper endoscopy today or any other day. He denies having a bowel movement today and states his last bowel movement which was black was 1-2 days ago. He states he has some nausea but no vomiting and no abdominal pain. Hemoglobin was stable today at 7.7. PHYSICAL EXAM: VITAL SIGNS: Reviewed. GENERAL: Well-developed in no acute distress. HEENT: No sclera icterus. Extraocular movements grossly intact. Moist buccal mucosa. Head is atraumatic, normocephalic. ABDOMEN: Soft. Nondistended. Nontender. NEUROLOGIC: Alert and oriented. Cranial nerves II through XII grossly intact. ASSESSMENT: 1. Iron deficiency anemia 2. Melena 3. History of duodenal bulb ulcer status post epinephrine/cold probe ablation 12/31/19 4. Chronic kidney disease, patient refusing dialysis 5. Hyperkalemia 6. History of atrial fibrillation not on anticoagulation PLAN: 1. Diet as tolerated 2. Continue Protonix 40 mg twice a day for GI prophylaxis 3. Recommend EGD to evaluate for possible upper GI source of bleeding patient has history of duodenal ulcer. The patient is refusing to proceed with EGD at this time. If patient changes his mind we can consider possible EGD on . 4. Continue to monitor CBC 5. Continue to monitor for signs and symptoms of GI bleed Thank you for this consultation, we will continue to follow. The impression and plan of care has been dictated as directed. Dr. Lara I performed a history and examination of this patient, discussed the same with the dictator. I agree with the dictator's note ,documented as a scribe. Any additional findings or plans will be noted. Objective - Vital Signs Vital signs: Vital Signs Temp 97.5 F L 12/14/21 08:00 Pulse 64 12/14/21 12:00 Resp 18 12/14/21 12:00 BP 116/58 12/14/21 12:00 Pulse Ox 93 L 12/14/21 12:00 Intake & Output 12/13/21 12/14/21 12/14/21 18:59 06:59 18:59 Intake Total 240 Output Total 200 225 Balance -200 15 Weight 81.5 kg Intake: Oral 240 Output: Urine 200 225 Other: Voiding Method Urinal Urinal Urinal # Voids 1 1 - Labs CBC & Chem 7: 12/14/21 08:14 12/14/21 08:14 Labs: Abnormal Lab Results - Last 24 Hours (Table) 12/14/21 12/14/21 Range/Units 08:14 08:14 RBC 2.34 L (4.30-5.90) m/uL Hgb 7.7 L (13.0-17.5) gm/dL Hct 24.8 L (39.0-53.0) % MCV 106.3 H (80.0-100.0) fL RDW 17.3 H (11.5-15.5) % Plt Count 140 L (150-450) k/uL Macrocytosis Marked A Sodium 134 L (137-145) mmol/L Potassium 6.0 H (3.5-5.1) mmol/L BUN 97 H (9-20) mg/dL Creatinine 8.02 H* (0.66-1.25) mg/dL Calcium 8.2 L (8.4-10.2) mg/dL
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
[2021-12-14] MEDS ORDERED: LIDOCAINE 1% INJ 10MG/ML (20 ML MDV) SQ ONE (14:46)
[2021-12-14] MEDS ORDERED: MIDAZOLAM 2 MG/2 ML VIAL IV ONE (14:46)
[2021-12-14] MEDS ORDERED: SODIUM CHLORIDE 0.9% 250 ML IV ONE (14:47)
--- NOTE | 2021-12-14 14:52 | P.PN ---
Subjective Progress Note Date: 12/14/21 Principal diagnosis: shortness of breath Patient is a 86-year-old male presented to the emergency room via ambulance for shortness of breath. He reported that he ran out of Lasix. Patient has a pertinent medical history of A. fib, hypertension, GERD, duodenal ulcer, neuropathy, chronic kidney disease and has been refusing dialysis. Chest x-ray showed mild congestive failure. Potassium was 7.4 on admission, BUN 97, creatinine 7.5, GFR 6. Troponin was 0.093, BNP 25,500. Nephrology was consulted. Patient is known to the office, have discussed need for dialysis multiple times with patient, patient continues to refuse. Hospitalist coverage 12/10/21-12/13/21 12/14/2021 Patient was seen and examined at bedside, was in no acute distress. Discussed case with nurse, patient had been refusing all types of care for the past 2 days, including dialysis. Today the Patient had gotten up in the chair with physical therapy. Patient discussed options with Dr. Elise and agreed to getting dialysis. We discussed hospice as an option as well, patient denies at this time. Patient reports nausea and weakness. BUN today was 97, creatinine 8.0. Potassium remains elevated at 6.0, patient refuses to take medication for it. Orders were placed for dialysis catheter placement. Will continue following with nephrology recommendations. Objective - Vital Signs Vital signs: Vital Signs Temp 97.8 F 12/14/21 13:33 Pulse 64 12/14/21 13:33 Resp 18 12/14/21 13:33 BP 116/58 12/14/21 13:33 Pulse Ox 93 L 12/14/21 13:33 Intake & Output 12/13/21 12/14/21 12/14/21 18:59 06:59 18:59 Intake Total 240 Output Total 200 225 Balance -200 15 Weight 81.5 kg Intake: Oral 240 Output: Urine 200 225 Other: Voiding Method Urinal Urinal Urinal # Voids 1 1 - Constitutional General appearance: Present: average body habitus, no acute distress - EENT Eyes: Present: EOMI, PERRLA ENT: Present: normal oropharynx Ears: bilateral: normal - Neck Neck: Present: normal ROM - Respiratory Respiratory: bilateral: diminished - Cardiovascular Heart rate: 60 Rhythm: irregularly irregular - Peripheral edema leg Peripheral Edema: bilateral: 2+ - Peripheral pulses radial pulse Peripheral Pulses: bilateral: Normal - Gastrointestinal General gastrointestinal: Present: distended - Integumentary Integumentary: Present: normal - Neurologic Neurologic: Present: CNII-XII intact - Musculoskeletal Musculoskeletal: Present: generalized weakness - Psychiatric Psychiatric: Present: A&O x's 3, appropriate affect - Allied health notes Allied health notes reviewed: nursing - Labs CBC & Chem 7: 12/14/21 08:14 12/14/21 08:14 Labs: Abnormal Lab Results - Last 24 Hours (Table) 12/14/21 12/14/21 Range/Units 08:14 08:14 RBC 2.34 L (4.30-5.90) m/uL Hgb 7.7 L (13.0-17.5) gm/dL Hct 24.8 L (39.0-53.0) % MCV 106.3 H (80.0-100.0) fL RDW 17.3 H (11.5-15.5) % Plt Count 140 L (150-450) k/uL Macrocytosis Marked A Sodium 134 L (137-145) mmol/L Potassium 6.0 H (3.5-5.1) mmol/L BUN 97 H (9-20) mg/dL Creatinine 8.02 H* (0.66-1.25) mg/dL Calcium 8.2 L (8.4-10.2) mg/dL - Imaging and Cardiology Chest x-ray: report reviewed Assessment and Plan Assessment: End stage chronic kidney disease, agreeable to dialysis today Hyperkalemia Acute on chronic congestive heart failure, echo ordered Iron deficient anemia, refused EGD Atrial fibrillation with controlled ventricular response Chronic back pain with chronic bilateral leg weakness, refused x-ray imaging Hypertension History of GERD Plan: Patient had been refusing diagnostic workup and required therapeutic care, discussed options with Dr. Elise, patient is now agreeable to start hemodialysis Proceed with hemodialysis catheter placement Orthopedic consult for chronic back pain Continue to encourage patient to participate in care, will proceed with diagnostic x-rays Continues to refuse EGD, we will encourage patient to proceed with testing needed Continue to monitor vital signs Patient denies hospice or palliative care at this time Further recommendations to come based on patient's clinical course Time with Patient: Greater than 30
--- NOTE | 2021-12-14 14:54 | PN ---
PROGRESS NOTE Patient is seen for followup for CKD stage 5 and hyperkalemia. The patient has been refusing dialysis this morning. The patient's assistant attorney general is present at bedside. I discussed renal replacement therapy again with the patient and he states that he is willing to try. He states that he had been scared from dialysis. This was discussed in detail with him and patient was advised that he can always discontinue dialysis if he does not want to continue. I have advised him that initiating renal replacement therapy will help with the potassium as well as his low appetite and volume overload. EXAMINATION: Today, patient is comfortable, awake, not in any acute distress. Alert, oriented x3. Blood pressure is 1116/58, heart rate of 54 per minute. Patient is afebrile. Examination of the heart S1, S2. Examination of the lungs, bilateral breath sounds are heard. Abdomen is soft, nontender. Examination lower extremities shows edema 2+ bilaterally with chronic skin changes. FOREST RANGER TECHNICIAN exam grossly intact. LAB: Show hemoglobin 7.7, sodium 134, potassium 6.0, chloride of 103, BUN 97, serum creatinine 8.0. ASSESSMENT: 1. CKD stage 5 with worsening renal failure. The patient has been refusing renal replacement therapy. However, this morning after discussion, he has agreed to proceed with dialysis. We will consult vascular surgery for placement of dialysis catheter and plan for his first treatment tomorrow. 2. Chronic hyperkalemia associated with CKD. 3. Gastrointestinal bleed contributing to the hyperkalemia as well. Patient refused EGD. 4. Metabolic acidosis maintained on oral sodium bicarb. 5. Anemia multifactorial including anemia of chronic disease, iron deficiency and gastrointestinal bleed. 6. Volume overload. 7. Chronic diastolic congestive heart failure with mild to moderate mitral regurgitation and pulmonary hypertension. PLAN: Continue Lokelny and proceed with vascular surgery consult and we will plan for first treatment of dialysis tomorrow. This was discussed in detail with the patient and he is currently agreeable to start renal replacement therapy. MMODL / IJN: [id number] /
[2021-12-14] MEDS ORDERED: HEPARIN SODIUM 1,000 UN/ML (10ML VL) IV ONE (14:59)
--- NOTE | 2021-12-14 15:32 | IR ---
EXAMINATION TYPE: IR cvc insert central tunneled DATE OF EXAM: 12/14/2021 COMPARISON: NONE HISTORY: Central venous catheter placement for renal failure Fluoroscopy support supplied to the referring clinician. See dictated report from vascular surgery, 2.8 minutes fluoroscopy time, 70 intraoperative images document the procedure
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
--- NOTE | 2021-12-14 15:43 | P.PCN ---
Description of Procedure: Preoperative diagnoses is acute chronic renal failure hyperkalemia Postoperative is same Procedure ultrasound-guided 23 same dialysis catheter placed right jugular approach under local IV sedation sedation time was 25 minutes patient brought to the Client Care Consultant Pavel of the neck and chest was prepped and draped applied usual standard manner 1% lidocaine for infected ultrasound-guided micropuncture introducer right jugular vein macro puncture guidewire was passed forefoot dilator advanced on the top of guidewire then we passed a regular guidewire which was parked at the inferior vena cava. Tendon was created through the terminal be brought 23 same dialysis catheter dilator was advanced. The guidewire then we placed a sheath on the top of the guidewire through the sheath we placed a dialysis catheter tip of the catheter is is at superior vena cava and atrial junction sheath was removed flushed with heparin saline and Hep-Lock secured with 3-0 nylon dressing applied patient are to the procedure well patient transferred to the recovery room in satisfactory condition advise to have a x-ray of the chest
--- NOTE | 2021-12-14 16:03 | XR ---
EXAMINATION TYPE: XR chest 1V portable DATE OF EXAM: 12/14/2021 Comparison: 12/13/2021 Clinical History: 86-year-old male verify dialysis catheter placement Findings: Right-sided double-lumen hemodialysis catheter tips near the cavoatrial junction. No appreciable pneu mothorax. Heart is enlarged. Small pleural effusions, left greater than right and mild interstitial p rominence along patchy bibasilar opacities. Overall unchanged. Impression: 1. Right-sided double-lumen hemodialysis catheter tips near the cavoatrial junction. 2. Cardiomegaly and interstitial prominence persists. Correlate for mild pulmonary vascular congestio n. 3. Continued small effusions with adjacent atelectasis and/or consolidation.
[2021-12-14] MEDS: HYDROcodone/APAP 10-325MG 1 EACH TAB PO PRN (17:55)
[2021-12-15] MEDS: HYDROcodone/APAP 10-325MG 1 EACH TAB PO PRN ×2 (00:16→21:21)
[2021-12-15 00:36] LABS: Hepatitis B Surface AB- Quant 3.5 mIU/mL; Hepatitis B Surface Antibody Nonreactive (Nonreactive)
[2021-12-15 02:05] LABS: Hepatitis B Surface Antigen Nonreactive (Nonreactive)
[2021-12-15] MEDS: PANTOPRAZOLE 40 MG TABLET PO SCH ×2 (06:18→12:18)
--- NOTE | 2021-12-15 08:00 | ECHOF ---
Referral Reason:congestive heart failure MEASUREMENTS -------- HEIGHT: 172.7 cm WEIGHT: 80.7 kg BP: RVIDd: 4.0 cm (< 3.3) IVSd: 1.5 cm (0.6 - 1.1) LVIDd: 5.2 cm (3.9 - 5.3) LVPWd: 1.7 cm (0.6 - 1.1) IVSs: 2.2 cm LVIDs: 4.0 cm LVPWs: 2.5 cm LA Diam: 5.0 cm (2.7 - 3.8) LAESV Index (A-L): 104.31 ml/m MV EXCURSION: 22.595 mm (> 18.000) MV EF SLOPE: 85 mm/s (70 - 150) EPSS: 0.7 cm MV E Sotero: 0.81 m/s MV DecT: 187 ms MV A Sotero: 0.31 m/s MV E/A Ratio: 2.59 RAP: 5.00 mmHg RVSP: 64.36 mmHg FINDINGS -------- Undetermined rhythm. This was a technically adequate study. The left ventricular size is normal. There is moderate concentric left ventricular hypertrophy. O verall left ventricular systolic function is mild-moderately impaired with, an EF between 40 - 45 %. The right ventricle is normal in size. LA is severely dilated >40 ml/m2 The right atrial size is normal. There is mild aortic valve sclerosis. Trace to mild aortic regurgitation. Mild mitral annular calcification present. Moderate mitral regurgitation is present. Moderate to severe tricuspid regurgitation present. There is moderate pulmonary hypertension. The right ventricular systolic pressure, as measured by Doppler, is 64.36mmHg. Trace/mild (physiologic) pulmonic regurgitation. Ascending Aortic Root is dilated and measures 4.5cm. Echo free space represents a pericardial fat pad. There is a small, generalized pericardial effusio n present. CONCLUSIONS -------- 1. The left ventricular size is normal. 2. There is moderate concentric left ventricular hypertrophy. 3. Overall left ventricular systolic function is mild-moderately impaired with, an EF between 40 - 45 %. 4. The right ventricle is normal in size. 5. LA is severely dilated >40 ml/m2 6. The right atrial size is normal. 7. There is mild aortic valve sclerosis. 8. Trace to mild aortic regurgitation. 9. Mild mitral annular calcification present. 10. Moderate to severe tricuspid regurgitation present. 11. There is moderate pulmonary hypertension. 12. The right ventricular systolic pressure, as measured by Doppler, is 64.36mmHg. 13. Trace/mild (physiologic) pulmonic regurgitation. 14. Ascending Aortic Root is dilated and measures 4.5cm. 15. Echo free space represents a pericardial fat pad. 16. There is a small, generalized pericardial effusion present. GIN FEEDER: Jyoti Whitley RDCS
[2021-12-15 08:12] LABS: Anisocytosis Slight; HGB 7.7 gm/dL (13.0-17.5); Hypochromasia Marked; MCH 33.8 pg (25.0-35.0); MCV 105.8 fL (80.0-100.0); Macrocytosis Marked; Mean Platelet Volume 7.5; Platelet Count 152 k/uL (150-450); RBC 2.27 m/uL (4.30-5.90); RDW 17.2 % (11.5-15.5); WBC 5.1 k/uL (3.8-10.6)
[2021-12-15 08:32] LABS: Calcium 7.8 mg/dL (8.4-10.2); Potassium 5.9 mmol/L (3.5-5.1)
--- NOTE | 2021-12-15 10:52 | P.PN ---
Subjective Progress Note Date: 12/15/21 CHIEF COMPLAINT: Anemia HISTORY OF PRESENT ILLNESS: This is a pleasant 86-year-old with multiple comorbidities including chronic kidney disease, atrial fibrillation not on anticoagulation, congestive heart failure and COPD who had presented to the emergency department with worsening shortness of breath. On admission he was noted to be anemic with hemoglobin of 7.5. Iron studies were consistent with iron deficiency anemia. Patient has reported black stools with a history of a duodenal ulcer. He denies any abdominal pain, nausea, or vomiting. Gen. surgery was consulted for anemia, GI bleed. Patient's last EGD colonoscopy was 12/31/[address] Niño. EGD showed a duodenal bulb ulcer with high risk stigmata for bleeding, vessel was treated with epinephrine and cold probe ablation. Colonoscopy showed hemolyzed blood throughout the colon, moderate crooks diverticulosis. The patient was scheduled for EGD today to evaluate for upper GI bleed. Patient refused to sign consent and states that he has to much going on today. Patient is followed closely with nephrology has been recommending hemodialysis, patient finally agreed and plan is for dialysis catheter placement possibly today. He states that he has back pain, leg pain and he is not proceeding with any upper endoscopy today or any other day. He denies having a bowel movement today and states his last bowel movement which was black was 3 days ago. He denies any abdominal pain, nausea or vomiting. Yesterday he underwent a tunneled dialysis catheter placement and is scheduled for hemodialysis today. Hemoglobin was stable today at 7.7. PHYSICAL EXAM: VITAL SIGNS: Reviewed. GENERAL: Well-developed in no acute distress. HEENT: No sclera icterus. Extraocular movements grossly intact. Moist buccal mucosa. Head is atraumatic, normocephalic. ABDOMEN: Soft. Nondistended. Nontender. NEUROLOGIC: Alert and oriented. Cranial nerves II through XII grossly intact. ASSESSMENT: 1. Iron deficiency anemia 2. Melena 3. History of duodenal bulb ulcer status post epinephrine/cold probe ablation 12/31/19 4. Chronic kidney disease, status post hemodialysis catheter placement 5. Hyperkalemia 6. History of atrial fibrillation not on anticoagulation PLAN: 1. Diet as tolerated 2. Continue Protonix 40 mg twice a day for GI prophylaxis 3. Recommend EGD to evaluate for possible upper GI source of bleeding patient has history of duodenal ulcer. The patient continues to refuse EGD. It was discussed with him that he has a history of bleeding duodenal ulcer, risk of not proceeding with EGD could result in continued blood loss and even . Patient verbalizes understanding and does not want to proceed with upper endoscopy. 4. Continue to monitor CBC 5. Continue to monitor for signs and symptoms of GI bleed Thank you for this consultation, we will continue to follow. The impression and plan of care has been dictated as directed. Dr. Lara I performed a history and examination of this patient, discussed the same with the dictator. I agree with the dictator's note ,documented as a scribe. Any additional findings or plans will be noted. Objective - Vital Signs Vital signs: Vital Signs Temp 97.5 F L 12/15/21 03:58 Pulse 64 12/14/21 13:33 Resp 16 12/15/21 03:58 BP 119/47 12/15/21 03:58 Pulse Ox 93 L 12/15/21 03:58 Intake & Output 12/14/21 12/15/21 12/15/21 18:59 06:59 18:59 Intake Total 50 240 Output Total 375 Balance 50 -135 Weight 82.5 kg Intake: IV 50 Oral 0 240 Output: Urine 375 Other: Voiding Method Urinal Urinal # Voids 1 - Labs CBC & Chem 7: 12/15/21 07:57 12/15/21 07:57 Labs: Abnormal Lab Results - Last 24 Hours (Table) 12/15/21 12/15/21 Range/Units 07:57 07:57 RBC 2.27 L (4.30-5.90) m/uL Hgb 7.7 L (13.0-17.5) gm/dL Hct 24.0 L (39.0-53.0) % MCV 105.8 H (80.0-100.0) fL RDW 17.2 H (11.5-15.5) % Macrocytosis Marked A Sodium 134 L (137-145) mmol/L Potassium 5.9 H (3.5-5.1) mmol/L BUN 109 H* (9-20) mg/dL Creatinine 8.20 H* (0.66-1.25) mg/dL Calcium 7.8 L (8.4-10.2) mg/dL
--- NOTE | 2021-12-15 11:36 | P.PN ---
Subjective Patient is seen for follow-up for CK D stage IV and hyperkalemia. Yesterday he agreed to start renal replacement therapy. Patient had stated that he had been scared of dialysis this was discussed in detail with him. IJ permacath was placed and patient is currently seen on hemodialysis. He is tolerating his treatment well and denies any significant complaints. Objective - Vital Signs Vital signs: Vital Signs Temp 97.5 F L 12/15/21 03:58 Pulse 64 12/14/21 13:33 Resp 16 12/15/21 03:58 BP 119/47 12/15/21 03:58 Pulse Ox 93 L 12/15/21 03:58 Intake & Output 12/14/21 12/15/21 12/15/21 18:59 06:59 18:59 Intake Total 50 240 Output Total 375 Balance 50 -135 Weight 82.5 kg Intake: IV 50 Oral 0 240 Output: Urine 375 Other: Voiding Method Urinal Urinal # Voids 1 - Exam Awake comfortable not in any acute distress. Examination of the heart S1 and S2 Examination lungs bilateral breath sounds are heard Abdomen is soft nontender Examination lower extremity shows edema 1+ bilaterally with chronic skin changes. [employer] exam grossly intact - Labs CBC & Chem 7: 12/15/21 07:57 12/15/21 07:57 Labs: Abnormal Lab Results - Last 24 Hours (Table) 12/15/21 12/15/21 Range/Units 07:57 07:57 RBC 2.27 L (4.30-5.90) m/uL Hgb 7.7 L (13.0-17.5) gm/dL Hct 24.0 L (39.0-53.0) % MCV 105.8 H (80.0-100.0) fL RDW 17.2 H (11.5-15.5) % Macrocytosis Marked A Sodium 134 L (137-145) mmol/L Potassium 5.9 H (3.5-5.1) mmol/L BUN 109 H* (9-20) mg/dL Creatinine 8.20 H* (0.66-1.25) mg/dL Calcium 7.8 L (8.4-10.2) mg/dL Assessment and Plan Assessment: 1. Chronic kidney disease stage V with no plans for renal replacement therapy initially but patient has now agreed for dialysis and is receiving his first treatment today 2. Hyperkalemia associated with CK D and metabolic acidosis, expect improvement with renal replacement therapy 3. Metabolic acidosis associated with CK D maintained on sodium bicarb 4. Anemia of chronic disease with iron deficiency 5. Chronic diastolic CHF with [id number] mitral regurg and pulmonary hypertension 6. Hypertension with CK D 7. Volume overload, maintained on Lasix. Expect further improvement with ongoing dialysis. Plan: Repeat hemodialysis in a.m. Discussed with discharge planning regarding outpatient chair time placement.
[2021-12-15] MEDS: CYANOCOBALAMIN 500 MCG TAB PO SCH (12:17)
[2021-12-15] MEDS: ISOSORBIDE MONONITRATE ER 30 MG TAB.ER.24H PO SCH (12:18)
[2021-12-15] MEDS: CHOLECALCIFEROL 125 MCG (5000 IU) TABLET PO SCH (12:18)
[2021-12-15] MEDS: hydrALAZINE HCL 50 MG TAB PO SCH ×3 (12:18→21:22)
[2021-12-15] MEDS: amLODIPine 5 MG TAB PO SCH ×2 (12:18→21:22)
[2021-12-15] MEDS: SODIUM BICARBONATE TAB 650 MG TAB PO SCH ×3 (12:18→21:22)
[2021-12-15] MEDS: METOPROLOL TARTRATE 12.5 MG TAB PO SCH (12:18)
[2021-12-15] MEDS: ASPIRIN 81 MG PO SCH (12:18)
[2021-12-15] MEDS: FUROSEMIDE 10 MG/ML 10 ML VIAL IV SCH ×2 (12:19→21:22)
--- NOTE | 2021-12-15 12:34 | P.PN ---
Subjective Progress Note Date: 12/15/21 Principal diagnosis: shortness of breath Patient is a 86-year-old male presented to the emergency room via ambulance for shortness of breath. He reported that he ran out of Lasix. Patient has a pertinent medical history of A. fib, hypertension, GERD, duodenal ulcer, neuropathy, chronic kidney disease and has been refusing dialysis. Chest x-ray showed mild congestive failure. Potassium was 7.4 on admission, BUN 97, creatinine 7.5, GFR 6. Troponin was 0.093, BNP 25,500. Nephrology was consulted. Patient is known to the office, have discussed need for dialysis multiple times with patient, patient continues to refuse. Hospitalist coverage 12/10/21-12/13/21 12/14/2021 Patient was seen and examined at bedside, was in no acute distress. Discussed case with nurse, patient had been refusing all types of care for the past 2 days, including dialysis. Today the Patient had gotten up in the chair with physical therapy. Patient discussed options with Dr. Elise and agreed to getting dialysis. We discussed hospice as an option as well, patient denies at this time. Patient reports nausea and weakness. BUN today was 97, creatinine 8.0. Potassium remains elevated at 6.0, patient refuses to take medication for it. Orders were placed for dialysis catheter placement. Will continue following with nephrology recommendations. 12/15/2021 Patient seen and examined at bedside. Patient was receiving dialysis through IJ permacath. Patient was resting comfortably in bed, no acute distress. Denies chest pain, shortness of breath or palpitations. Potassium was 5.9, BUN 109, creatinine 8.2. All values should improve with dialysis treatment. Continue following with nephrology recommendations. Echo found decreased EF of 40-45% from previous echo in july 2021. Cardiology consult ordered. Objective - Vital Signs Vital signs: Vital Signs Temp 98.1 F 12/15/21 12:15 Pulse 75 12/15/21 12:15 Resp 15 12/15/21 12:15 BP 126/75 12/15/21 12:15 Pulse Ox 96 12/15/21 12:15 Intake & Output 12/14/21 12/15/21 12/15/21 18:59 06:59 18:59 Intake Total 50 240 300 Output Total 375 1500 Balance 50 -135 -1200 Weight 82.5 kg Intake: IV 50 Oral 0 240 Hemodialysis 300 Output: Urine 375 Hemodialysis 1500 Other: Voiding Method Urinal Urinal # Voids 1 - Constitutional General appearance: Present: average body habitus, cooperative - EENT Eyes: Present: PERRLA ENT: Present: hard of hearing, normal oropharynx Ears: bilateral: normal - Neck Neck: Present: normal ROM - Respiratory Respiratory: bilateral: diminished, rhonchi - Cardiovascular Heart rate: 70 Rhythm: regular Heart sounds: normal: S1, S2 - Peripheral edema leg Peripheral Edema: bilateral: 1+ - Peripheral pulses radial pulse Peripheral Pulses: bilateral: Normal - Gastrointestinal General gastrointestinal: Present: normal bowel sounds, soft - Integumentary Integumentary: Present: pale - Neurologic Neurologic: Present: CNII-XII intact - Musculoskeletal Musculoskeletal: Present: generalized weakness - Psychiatric Psychiatric: Present: A&O x's 3, appropriate affect - Allied health notes Allied health notes reviewed: nursing - Labs CBC & Chem 7: 12/15/21 07:57 12/15/21 07:57 Labs: Abnormal Lab Results - Last 24 Hours (Table) 12/15/21 12/15/21 Range/Units 07:57 07:57 RBC 2.27 L (4.30-5.90) m/uL Hgb 7.7 L (13.0-17.5) gm/dL Hct 24.0 L (39.0-53.0) % MCV 105.8 H (80.0-100.0) fL RDW 17.2 H (11.5-15.5) % Macrocytosis Marked A Sodium 134 L (137-145) mmol/L Potassium 5.9 H (3.5-5.1) mmol/L BUN 109 H* (9-20) mg/dL Creatinine 8.20 H* (0.66-1.25) mg/dL Calcium 7.8 L (8.4-10.2) mg/dL Assessment and Plan Assessment: End stage chronic kidney disease, receiving dialysis Hyperkalemia Acute on chronic congestive heart failure, echo ordered Iron deficient anemia, refused EGD Atrial fibrillation with controlled ventricular response Chronic back pain with chronic bilateral leg weakness, refused x-ray imaging Hypertension History of GERD Plan: Patient has been agreeing and participating in care and is undergoing hemodialysis Decreased ejection fraction, cardiology consult Orthopedic consult for chronic back pain Continue to encourage patient to participate in care, will proceed with diag nostic x-rays Continues to refuse EGD, we will encourage patient to proceed with testing needed Continue to monitor vital signs Patient denies hospice or palliative care at this time Further recommendations to come based on patient's clinical course Time with Patient: Greater than 30
--- NOTE | 2021-12-15 13:11 | P.PN ---
<Nathan Sullivan - Last Filed: 12/15/21 13:10> Progress Note - Text Progress Note Date: 12/15/21 Orthopedic spine: History of present illness: Patient is a 86-year-old male who is seen and examined at bedside for follow-up evaluation of his lumbar spine. He initially presented to the emergency department with shortness of breath. During his admission to the hospital he states he has been having significant low back pain. He states his low back pain has worsened over the past year. He states he has fallen multiple times as his legs will give out on him. He has had difficulty with mobility. 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 He does admit to having some difficulty with caring for himself at home. His symptoms remain unchanged as compared to yesterday. He states he has significant low back pain with pain radiating down the lower extremities. States the pain is most significant at the knees down to the feet. He does have some swelling in the lower extremities. X-ray imaging of the lumbar spine was ordered yesterday morning, 12/14/2021, but the patient has twice refused to have imaging obtained yesterday and refused imaging again this mornin. He again states at the bedside he would be willing to proceed forward with obtaining lumbar x-ray imaging. Patient during his presentation was also shown to have anemia with a hemoglobin of 7.5. His hemoglobin today is currently 7.7. He did have a dialysis catheter placed yesterday. He is known have chronic kidney disease stage V and with hyperkalemia with metabolic acidosis due to chronic kidney disease. Nursing states patient was also originally scheduled for an EGD today as he was found to have melena but patient has declined this scope today. He has a history of a duodenal ulcer. Patient is currently being seen by multiple medical providers including nephrology, pulmonology, medicine, and general surgery. Patient's other medical diagnoses include chronic kidney disease stage V, congestive heart failure, COPD, atrial fibrillation, history of duodenal ulcer and hypertension. Physical exam: Patient is awake, alert, and oriented 3; patient currently lying in a bedside chair Vital signs stable Good chest excursion with deep inspiration and expiration Dorsiflexion, plantarflexion, and extensor hallucis longus positive sustained bilaterally Patient does have some difficulty lifting his legs off the bed independently bilaterally Straight leg test negative bilateral lower extremities No signs or symptoms of DVT; no calf pain No pain with internal and external rotation of the hips bilaterally Neurovascularly intact Mild swelling of the bilateral lower extremities Multiple healing scabs over the anterior lower extremities Assessment: Worsening low back pain over the past year Bilateral lower extremity pain Frequent falls Difficulty with ambulation Lumbar spasm Mild lower extremity swelling bilaterally Chronic kidney disease stage V Scheduled dialysis catheter implantation today Hyperkalemia Metabolic acidosis Congestive heart failure COPD Atrial fibrillation History of duodenal ulcer Melena Anemia Hypertension Plan: 1. We'll continue with our plan as set forth yesterday. Patient has been expressing worsening low back pain over the past year with multiple falls. He states he has bilateral lower extremity leg pain most significant at the knees extending to the feet. 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 We had attempted to order x-ray imaging but the patient declined this imaging on 2 separate occasions yesterday and again this morning. Patient states again at the bedside he would be willing to obtain an x-ray imaging now. We again did discuss he has multiple other significant medical diagnoses including chronic kidney disease stage V, hyperkalemia, and metabolic acidosis. Yesterday he did have a dialysis catheter inserted. He also has significant anemia with a hemoglobin of 7.7. He also has a history of duodenal ulcer with currently melena in which a scope was previously scheduled but the patient has declined this. We did discuss given his significant medical diagnoses and other treatment and evaluation he is currently undergoing, we are not currently planning for any acute surgical intervention in regards to his lumbosacral spine. We will plan to obtain x-ray imaging for further evaluation and to rule out compression fracture deformity. Depending on those x-ray results, we may plan to obtain further imaging of his lumbar spine. We will follow to review his x-ray imaging following the completion of this x-ray imaging. We did discuss in detail if he continues to decline imaging we will plan to have him follow up in the outpatient setting for further evaluation after his treatment and evaluation for his multiple other medical diagnoses. He is encouraged to continue following with the other medical providers and to proceed forward with treatment evaluation per their recommendations. 2. Patient will continue be seen in exam by multiple other medical providers including pulmonology, nephrology, medicine, and general surgery. <Winston Daugherty - Last Filed: 12/15/21 13:58> Progress Note - Text Was able to see and examine the patient at bedside. We discussed again the possibility of getting x-rays and he said that he would go ahead with this but according to nursing again declined. I asked him if he could try to help him with his back and he is declining any specific treatment for his back. It is difficult to discuss issues with the patient as he is quite cantankerous, demanding and unwilling to except suggestion or help. He is able to answer questions and follow commands. He says that he will cooperate but then when we asked him to take medicines or follow through with treatments were evaluations he declines and refuses. He asked me to leave and declined further treatment at this point. I discussed with him that he is having pain in his back that we could potentially help him with but he declined further care for evaluation. He seemed to understand his wishes and our issues with his spine but demanded that we leave his room. He does not seem to have acute neurologic change at his lower extremities. He does seem to have some pain in his back without neurologic loss and I do not think that we would plan any surgical intervention. He can continue conservative treatment and can follow-up with us as needed.
[2021-12-15] MEDS: SODIUM ZIRCONIUM CYCLOSILICATE 10 GM PACKET PO SCH ×2 (15:43→15:57)
[2021-12-15] MEDS: SODIUM FERRIC GLUCONAT-SUCROSE 125 MG in SODIUM CHLORIDE 0.9% 100 ML IVPB SCH (15:43)
[2021-12-16] MEDS: PANTOPRAZOLE 40 MG TABLET PO SCH ×2 (06:40→18:10)
[2021-12-16] MEDS: FUROSEMIDE 10 MG/ML 10 ML VIAL IV SCH (09:35)
[2021-12-16 09:39] LABS: Albumin 2.9 g/dL (3.5-5.0); Calcium 7.6 mg/dL (8.4-10.2); Magnesium 1.8 mg/dL (1.6-2.3); Potassium 4.1 mmol/L (3.5-5.1); Total Bilirubin 0.6 mg/dL (0.2-1.3); Total Protein 5.6 g/dL (6.3-8.2)
[2021-12-16] MEDS: SODIUM BICARBONATE TAB 650 MG TAB PO SCH ×3 (09:40→20:29)
[2021-12-16] MEDS: ASPIRIN 81 MG PO SCH (09:40)
[2021-12-16] MEDS: HYDROcodone/APAP 10-325MG 1 EACH TAB PO PRN (09:40)
[2021-12-16] MEDS: CHOLECALCIFEROL 125 MCG (5000 IU) TABLET PO SCH (09:41)
[2021-12-16] MEDS: CYANOCOBALAMIN 500 MCG TAB PO SCH (09:41)
[2021-12-16 09:54] LABS: Anisocytosis Slight; HGB 7.1 gm/dL (13.0-17.5); Hypochromasia Marked; MCH 32.4 pg (25.0-35.0); MCHC 30.9 g/dL (31.0-37.0); MCV 105.2 fL (80.0-100.0); Macrocytosis Moderate; Mean Platelet Volume 8.3; RBC 2.19 m/uL (4.30-5.90); RDW 16.8 % (11.5-15.5); WBC 5.1 k/uL (3.8-10.6)
--- NOTE | 2021-12-16 10:34 | P.PN ---
Subjective Progress Note Date: 12/16/21 CHIEF COMPLAINT: Anemia HISTORY OF PRESENT ILLNESS: This is a pleasant 86-year-old with multiple comorbidities including chronic kidney disease, atrial fibrillation not on anticoagulation, congestive heart failure and COPD who had presented to the emergency department with worsening shortness of breath. On admission he was noted to be anemic with hemoglobin of 7.5. Iron studies were consistent with iron deficiency anemia. Patient has reported black stools with a history of a duodenal ulcer. He denies any abdominal pain, nausea, or vomiting. Gen. surgery was consulted for anemia, GI bleed. Patient's last EGD colonoscopy was 12/31/[address] Niño. EGD showed a duodenal bulb ulcer with high risk stigmata for bleeding, vessel was treated with epinephrine and cold probe ablation. Colonoscopy showed hemolyzed blood throughout the colon, moderate crooks diverticulosis. The patient was scheduled for EGD today to evaluate for upper GI bleed however he refused. He still continues to refuse to undergo upper endoscopy. He states he has not had a bowel movement in 2 days. No further signs of GI bleed. Hemoglobin is stable. He denies any abdominal pain. States most of his pain is in his back. PHYSICAL EXAM: VITAL SIGNS: Reviewed. GENERAL: Well-developed in no acute distress. HEENT: No sclera icterus. Extraocular movements grossly intact. Moist buccal mucosa. Head is atraumatic, normocephalic. ABDOMEN: Soft. Nondistended. Nontender. NEUROLOGIC: Alert and oriented. Cranial nerves II through XII grossly intact. ASSESSMENT: 1. Iron deficiency anemia 2. Melena 3. History of duodenal bulb ulcer status post epinephrine/cold probe ablation 12/31/19 4. Chronic kidney disease, status post hemodialysis catheter placement 5. Hyperkalemia 6. History of atrial fibrillation not on anticoagulation PLAN: 1. Diet as tolerated 2. Continue Protonix 40 mg twice a day for GI prophylaxis 3. Recommend EGD to evaluate for possible upper GI source of bleeding patient has history of duodenal ulcer. The patient continues to refuse EGD. It was dis cussed with him that he has a history of bleeding duodenal ulcer, risk of not proceeding with EGD could result in continued blood loss and even . Patient verbalizes understanding and does not want to proceed with upper endoscopy. 4. Continue to monitor CBC 5. Continue to monitor for signs and symptoms of GI bleed Thank you for this consultation, we will continue to follow. The impression and plan of care has been dictated as directed. Dr. Lara I performed a history and examination of this patient, discussed the same with the dictator. I agree with the dictator's note ,documented as a scribe. Any additional findings or plans will be noted. Objective - Vital Signs Vital signs: Vital Signs Temp 97.9 F 12/16/21 04:00 Pulse 107 H 12/16/21 08:00 Resp 16 12/16/21 08:00 BP 111/61 12/16/21 08:00 Pulse Ox 98 12/16/21 08:06 Intake & Output 12/15/21 12/16/21 12/16/21 18:59 06:59 18:59 Intake Total 650 870 25 Output Total 1750 425 Balance -1100 445 25 Intake: Oral 350 870 25 Hemodialysis 300 Output: Urine 250 425 Hemodialysis 1500 Other: Voiding Method Urinal Urinal - Labs CBC & Chem 7: 12/16/21 09:00 12/16/21 09:00 Labs: Abnormal Lab Results - Last 24 Hours (Table) 12/16/21 12/16/21 Range/Units 09:00 09:00 RBC 2.19 L (4.30-5.90) m/uL Hgb 7.1 L (13.0-17.5) gm/dL Hct 23.0 L (39.0-53.0) % MCV 105.2 H (80.0-100.0) fL MCHC 30.9 L (31.0-37.0) g/dL RDW 16.8 H (11.5-15.5) % Sodium 135 L (137-145) mmol/L BUN 60 H (9-20) mg/dL Creatinine 5.26 H (0.66-1.25) mg/dL Calcium 7.6 L (8.4-10.2) mg/dL Total Protein 5.6 L (6.3-8.2) g/dL Albumin 2.9 L (3.5-5.0) g/dL
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
--- NOTE | 2021-12-16 11:25 | P.PN ---
Subjective Patient is seen for follow-up for CK D stage IV and hyperkalemia. Patient has agreed to start renal replacement therapy. Patient had stated that he had been scared of dialysis this was discussed in detail with him. IJ permacath was placed and patient had his first treatment of hemodialysis yesterday on 12/15/2021. He is seen on hemodialysis today. He is tolerating his treatment well. Patient is complaining of pain all over his body and has just received pain medication. Objective - Vital Signs Vital signs: Vital Signs Temp 97.9 F 12/16/21 04:00 Pulse 107 H 12/16/21 08:00 Resp 16 12/16/21 08:00 BP 111/61 12/16/21 08:00 Pulse Ox 98 12/16/21 08:06 Intake & Output 12/15/21 12/16/21 12/16/21 18:59 06:59 18:59 Intake Total 650 870 25 Output Total 1750 425 Balance -1100 445 25 Intake: Oral 350 870 25 Hemodialysis 300 Output: Urine 250 425 Hemodialysis 1500 Other: Voiding Method Urinal Urinal Urinal - Exam Awake comfortable not in any acute distress. Examination of the heart S1 and S2 Examination lungs bilateral breath sounds are heard Abdomen is soft nontender Examination lower extremity shows edema 1+ bilaterally with chronic skin changes. 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 Chronic kidney disease stage V with no plans for renal replacement therapy initially but patient has now agreed for dialysis and is receiving his SECOND treatment today. Renal replacement therapy started on 12/15/2021 2. Hyperkalemia associated with CK D and metabolic acidosis, expect improvement with renal replacement therapy 3. Metabolic acidosis associated with CK D maintained on sodium bicarb 4. Anemia of chronic disease with iron deficiency 5. Chronic diastolic CHF with [id number] mitral regurg and pulmonary hypertension 6. Hypertension with CK D 7. Volume overload, maintained on Lasix. Expect further improvement with ongoing dialysis. Plan: Discussed with discharge planning regarding outpatient chair time placement.
[2021-12-16 11:30] LABS: Glucose,Whole Blood 96 mg/dL (75-99)
[2021-12-16] MEDS: METOPROLOL TARTRATE 12.5 MG TAB PO SCH (12:10)
[2021-12-16] MEDS: hydrALAZINE HCL 50 MG TAB PO SCH ×3 (12:11→21:05)
[2021-12-16] MEDS: ISOSORBIDE MONONITRATE ER 30 MG TAB.ER.24H PO SCH (12:11)
[2021-12-16] MEDS: amLODIPine 5 MG TAB PO SCH ×2 (12:11→21:05)
--- NOTE | 2021-12-16 12:29 | P.PN ---
Subjective Progress Note Date: 12/16/21 Principal diagnosis: shortness of breath Patient is a 86-year-old male presented to the emergency room via ambulance for shortness of breath. He reported that he ran out of Lasix. Patient has a pertinent medical history of A. fib, hypertension, GERD, duodenal ulcer, neuropathy, chronic kidney disease and has been refusing dialysis. Chest x-ray showed mild congestive failure. Potassium was 7.4 on admission, BUN 97, creatinine 7.5, GFR 6. Troponin was 0.093, BNP 25,500. Nephrology was consulted. Patient is known to the office, have discussed need for dialysis multiple times with patient, patient continues to refuse. Hospitalist coverage 12/10/21-12/13/21 12/14/2021 Patient was seen and examined at bedside, was in no acute distress. Discussed case with nurse, patient had been refusing all types of care for the past 2 days, including dialysis. Today the Patient had gotten up in the chair with physical therapy. Patient discussed options with Dr. Elise and agreed to getting dialysis. We discussed hospice as an option as well, patient denies at this time. Patient reports nausea and weakness. BUN today was 97, creatinine 8.0. Potassium remains elevated at 6.0, patient refuses to take medication for it. Orders were placed for dialysis catheter placement. Will continue following with nephrology recommendations. 12/15/2021 Patient seen and examined at bedside. Patient was receiving dialysis through IJ permacath. Patient was resting comfortably in bed, no acute distress. Denies chest pain, shortness of breath or palpitations. Potassium was 5.9, BUN 109, creatinine 8.2. All values should improve with dialysis treatment. Continue following with nephrology recommendations. Echo found decreased EF of 40-45% from previous echo in july 2021. Cardiology consult ordered. 12/16/2021 Patient was assessed at bedside. Was receiving second treatment of dialysis through IJ permacath. Patient is resting comfortably in bed, aroused to voice, reports generalized pain all over body. Patient had just received [place] for pain. Patient denies chest pain, shortness of breath, palpitations or chills. Lab work improved greatly with dialysis treatment, BUN 60, creatinine 5.2, GFR 9. Potassium improved, down to 4.1. Continue following with consults r ecommendations. Objective - Vital Signs Vital signs: Vital Signs Temp 97.9 F 12/16/21 04:00 Pulse 73 12/16/21 12:00 Resp 16 12/16/21 12:00 BP 119/60 12/16/21 12:00 Pulse Ox 96 12/16/21 12:00 Intake & Output 12/15/21 12/16/21 12/16/21 18:59 06:59 18:59 Intake Total 650 870 25 Output Total 1750 425 Balance -1100 445 25 Intake: Oral 350 870 25 Hemodialysis 300 Output: Urine 250 425 Hemodialysis 1500 Other: Voiding Method Urinal Urinal Urinal - Constitutional General appearance: Present: average body habitus, no acute distress - EENT Eyes: Present: EOMI, PERRLA ENT: Present: normal oropharynx Ears: bilateral: normal - Neck Details: IJ permacath present Neck: Present: normal ROM - Respiratory Respiratory: bilateral: diminished, rhonchi - Cardiovascular Heart rate: 80 Rhythm: irregularly irregular Heart sounds: normal: S1, S2 - Peripheral edema leg Peripheral Edema: bilateral: 1+ - Peripheral pulses radial pulse Peripheral Pulses: bilateral: Normal - Gastrointestinal General gastrointestinal: Present: normal bowel sounds, soft - Integumentary Integumentary: Present: pale - Neurologic Neurologic: Present: CNII-XII intact - Musculoskeletal Musculoskeletal: Present: generalized weakness - Psychiatric Psychiatric: Present: A&O x's 3, appropriate affect, intact judgment & insight - Allied health notes Allied health notes reviewed: nursing - Labs CBC & Chem 7: 12/16/21 09:00 12/16/21 09:00 Labs: Abnormal Lab Results - Last 24 Hours (Table) 12/16/21 12/16/21 Range/Units 09:00 09:00 RBC 2.19 L (4.30-5.90) m/uL Hgb 7.1 L (13.0-17.5) gm/dL Hct 23.0 L (39.0-53.0) % MCV 105.2 H (80.0-100.0) fL MCHC 30.9 L (31.0-37.0) g/dL RDW 16.8 H (11.5-15.5) % Sodium 135 L (137-145) mmol/L BUN 60 H (9-20) mg/dL Creatinine 5.26 H (0.66-1.25) mg/dL Calcium 7.6 L (8.4-10.2) mg/dL Total Protein 5.6 L (6.3-8.2) g/dL Albumin 2.9 L (3.5-5.0) g/dL Assessment and Plan Assessment: End stage chronic kidney disease, receiving dialysis Hyperkalemia, improved with dialysis Acute on chronic congestive heart failure, cardiology referral Iron deficient anemia, refused EGD Atrial fibrillation with controlled ventricular response Chronic back pain with chronic bilateral leg weakness, refused x-ray imaging Hypertension History of GERD Plan: Patient has been agreeing and participating in care and is undergoing hemodialysis Kidney function improved, continue following nephrology recommendations Decreased ejection fraction, cardiology consult Orthopedic consult for chronic back pain Continue to encourage patient to participate in care, will proceed with diagnostic x-rays Continues to refuse EGD, we will encourage patient to proceed with testing needed Continue to monitor vital signs Patient denies hospice or palliative care at this time Further recommendations to come based on patient's clinical course
[2021-12-16 12:54] LABS: Eosinophils # (M) 0.15 k/uL (0-0.7); Lymphocytes # (M) 0.31 k/uL (1.0-4.8); Monocytes # (M) 0.51 k/uL (0-1.0); Neutrophils # (M) 4.13 k/uL (1.3-7.7); Neutrophils % (M) 81 %; Nucleated Red Blood Cells 0 /100 WBC (0-0); Total Cells Counted 100
[2021-12-16 13:11] LABS: Platelet Count 99 k/uL (150-450)
[2021-12-16] MEDS: LORazepam 1 MG TAB PO PRN (13:59)
[2021-12-16 14:27] LABS: Glucose,Whole Blood 92 mg/dL (75-99)
[2021-12-16 16:28] LABS: Glucose,Whole Blood 100 mg/dL (75-99)
[2021-12-16] MEDS: FUROSEMIDE 20 MG TAB PO SCH (18:11)
[2021-12-16 20:29] LABS: Glucose,Whole Blood 95 mg/dL (75-99)
[2021-12-17] MEDS: HYDROcodone/APAP 10-325MG 1 EACH TAB PO PRN ×2 (01:46→20:24)
[2021-12-17] MEDS: PANTOPRAZOLE 40 MG TABLET PO SCH ×2 (06:26→17:08)
[2021-12-17 06:42] LABS: Glucose,Whole Blood 77 mg/dL (75-99)
[2021-12-17] MEDS: ASPIRIN 81 MG PO SCH (09:27)
[2021-12-17] MEDS: CYANOCOBALAMIN 500 MCG TAB PO SCH (09:27)
[2021-12-17] MEDS: CHOLECALCIFEROL 125 MCG (5000 IU) TABLET PO SCH (09:27)
[2021-12-17] MEDS: SODIUM BICARBONATE TAB 650 MG TAB PO SCH ×3 (09:27→20:24)
[2021-12-17] MEDS: FUROSEMIDE 20 MG TAB PO SCH ×2 (09:27→17:41)
[2021-12-17] MEDS: polyethylene glycoL 3350 17 GM POWD.PACK PO SCH (09:28)
--- NOTE | 2021-12-17 10:36 | P.PN ---
Subjective Progress Note Date: 12/17/21 CHIEF COMPLAINT: Anemia HISTORY OF PRESENT ILLNESS: This is a pleasant 86-year-old with multiple comorbidities including chronic kidney disease, atrial fibrillation not on anticoagulation, congestive heart failure and COPD who had presented to the emergency department with worsening shortness of breath. On admission he was noted to be anemic with hemoglobin of 7.5. Iron studies were consistent with iron deficiency anemia. Patient has reported black stools with a history of a duodenal ulcer. He denies any abdominal pain, nausea, or vomiting. Gen. surgery was consulted for anemia, GI bleed. Patient's last EGD colonoscopy was 12/31/[address] Niño. EGD showed a duodenal bulb ulcer with high risk stigmata for bleeding, vessel was treated with epinephrine and cold probe ablation. Colonoscopy showed hemolyzed blood throughout the colon, moderate crooks diverticulosis. The patient was scheduled for EGD today to evaluate for upper GI bleed however he refused. He still continues to refuse to undergo upper endoscopy. He states he had no bowel movement today. No further signs of GI bleed. He denies any abdominal pain, nausea, or vomiting. Hemoglobin has been stable. He has had 2 hemodialysis treatments, kidney function improving. PHYSICAL EXAM: VITAL SIGNS: Reviewed. GENERAL: Well-developed in no acute distress. HEENT: No sclera icterus. Extraocular movements grossly intact. Moist buccal mucosa. Head is atraumatic, normocephalic. ABDOMEN: Soft. Nondistended. Nontender. NEUROLOGIC: Alert and oriented. Cranial nerves II through XII grossly intact. ASSESSMENT: 1. Iron deficiency anemia 2. Melena 3. History of duodenal bulb ulcer status post epinephrine/cold probe ablation 12/31/19 4. Chronic kidney disease, status post hemodialysis catheter placement 5. Hyperkalemia 6. History of atrial fibrillation not on anticoagulation PLAN: 1. Diet as tolerated 2. Continue Protonix 40 mg twice a day for GI prophylaxis 3. Recommend EGD to evaluate for possible upper GI source of bleeding patient has history of duodenal ulcer. The patient continues to refuse EGD. It was discussed with him that he has a history of bleeding duodenal ulcer, risk of not proceeding with EGD could result in continued blood loss and even . Patient verbalizes understanding and does not want to proceed with upper endoscopy. 4. Continue to monitor CBC 5. Continue to monitor for signs and symptoms of GI bleed Thank you for this consultation, we will sign off at this time. Please do not hesitate to call us back if patient changes his mind for endoscopic evaluation. The impression and plan of care has been dictated as directed. Dr. Lara I performed a history and examination of this patient, discussed the same with the dictator. I agree with the dictator's note ,documented as a scribe. Any additional findings or plans will be noted. Objective - Vital Signs Vital signs: Vital Signs Temp 97.8 F 12/17/21 08:00 Pulse 67 12/17/21 08:00 Resp 16 12/17/21 08:00 BP 119/61 12/17/21 08:00 Pulse Ox 97 12/17/21 08:00 Intake & Output 12/16/21 12/17/21 12/17/21 18:59 06:59 18:59 Intake Total 25 100 Output Total 250 Balance 25 -150 Weight 91.8 kg Intake: Oral 25 100 Output: Urine 250 Other: Voiding Method Urinal Urinal # Voids 2 0 - Labs CBC & Chem 7: 12/16/21 09:00 12/16/21 09:00 Labs: Abnormal Lab Results - Last 24 Hours (Table) 12/16/21 12/16/21 12/16/21 Range/Units 09:00 09:00 16:27 Plt Count 99 L (150-450) k/uL Lymphocytes # (Manual) 0.31 L (1.0-4.8) k/uL Sodium 135 L (137-145) mmol/L BUN 60 H (9-20) mg/dL Creatinine 5.26 H (0.66-1.25) mg/dL POC Glucose (mg/dL) 100 H (75-99) mg/dL Calcium 7.6 L (8.4-10.2) mg/dL Total Protein 5.6 L (6.3-8.2) g/dL Albumin 2.9 L (3.5-5.0) g/dL
--- NOTE | 2021-12-17 11:18 | US ---
EXAMINATION TYPE: US venous doppler duplex LE DATE OF EXAM: 12/17/2021 11:06 AM COMPARISON: US CLINICAL HISTORY: leg swelling. Leg swelling, No hx of DVT per patient. SIDE PERFORMED: Bilateral TECHNIQUE: The lower extremity deep venous system is examined utilizing real time linear array sonog love with graded compression, doppler sonography and color-flow sonography. VESSELS IMAGED: Common Femoral Vein Deep Femoral Vein Greater Saphenous Vein * Femoral Vein Popliteal Vein Small Saphenous Vein * Proximal Calf Veins (* superficial vessels) Right Leg: Possible chronic internal echoes within CFV/GSV, prox femoral vein, and deep femoral vein . These segments appear to compress incompletely. Color flow seen in all veins imaged. Left Leg: Possible chronic internal echoes within CFV/GSV- veins appear to compress incompletely. Co karan flow seen in all veins imaged. IMPRESSION: Correlate for chronic DVT/SVT as noted.
[2021-12-17 11:40] LABS: Glucose,Whole Blood 82 mg/dL (75-99)
--- NOTE | 2021-12-17 12:31 | P.PN ---
Subjective Patient is a pleasant 86-year-old male with history of hypertension, persistent atrial fibrillation (not on anticoagulation secondary to refusal in the past), chronic kidney disease (refusal of renal replacement therapy), coronary artery disease status post previous PCI of the mid LAD in 2006, hyperlipidemia, GERD, duodenal ulcer, prior GI bleed. 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 We have been consulted for congestive heart failure 12/16/21. Patient was admitted on 12/10/2021 with complaints of shortness of breath, reported that his Lasix p rescription ran out and unable to have it refilled. Patient found to be in acute renal failure, hyperkalemic, metabolic acidosis, volume overload. Nephrology was consulted, patient started on IV Lasix. Patient was agreeable for renal replacement therapy, Dialysis IJ permacath catheter was implanted on 12/14/21. Dialysis was initiated on 12/15/2021. He was also anemic with hgb 7.5 and reported black tarry stools, Surgery was consulted, EGD was recommended, however, patient refused. Patient also comp lained of lower back pain, Orthopedics was consulted, no acute surgical intervention planned, recommend X-ray imaging. DIAGNOSTICS: -Echocardiogram revealed EF 40-45%, LA is severely dilated, mild aortic regurgitation, moderate to severe tricuspid regurgitation, moderate pulmonary hypertension, RVSP 64mmHg, Ascending aortic root dilated at 4.5cm. small generalized pericardial effusion. Prior Echo in 08/06/21 EF 55-60%. -EKG- Atrial fibrillation HR 84. Right Bundle Branch block 12/17/2021 Patient seen and examined at bedside, no acute distress. He endorses some basia rtness of breath ,but improved. He denies any chest pain. Some discomfort at right IJ permacath site. He continues to refuse EGD and anticoagulation. Telemetry revealed atrial fibrillation with controlled ventricular rates. Vital signs are stable. PHYSICAL EXAMINATION Vital signs reviewed. CONSTITUTIONAL: No apparent distress. HEENT: Neck Supple. No JVD. CHEST EXAMINATION: Lungs are diminished to auscultation bilaterally. HEART EXAMINATION: Irregular rate and rhythm. S1, S2 heard. Systolic ejection murmur noted ABDOMEN: Soft, nontender. Positive bowel sounds. EXTREMITIES: 2+ peripheral pulses, no lower extremity edema and no calf tenderness. NEUROLOGIC EXAMINATION: Patient is awake, alert and oriented x3. ASSESSMENT Acute on chronic heart failure with preserved EF, impaired 40-45%, related to volume overload, renal failure Acute renal failure, requiring initiating of hemodialysis on 12/15/2021 Elevated troponins not indicative of acute coronary syndrome. Related to acute renal failure, no evidence of angina symptoms. Cardiomyopathy EF 40-45%, unclear if ischemic vs non-ischemic at this time Persistent atrial fibrillation (not on anticoagulation secondary to refusal in the past) Coronary artery disease status post previous PCI of the mid LAD in 2006 Anemia Melena Hyperlipidemia GERD History of duodenal ulcer History of prior GI bleed. Hypertension Coronary artery disease with history of prior PCI Valvular heart disease PLAN We will continue with current medical therapy with amlodipine, aspirin, hydralazine and metoprolol Patient transitioned to PO Lasix per nephrology Hemodialysis per nephrology Patient not on anticoagulation for atrial fibrillation due to refusal, unable to complete GI work up for anemia with EGD due to patient's refusal No ACEI/ARB due to renal function at this time. Further recommendations based on clinical course Nurse practitioner note has been reviewed by physician. Signing provider agrees with the documented findings, assessment, and plan of care. Objective - Vital Signs Vital signs: Vital Signs Temp 97.8 F 12/17/21 08:00 Pulse 73 12/17/21 12:00 Resp 16 12/17/21 12:00 BP 116/51 12/17/21 12:00 Pulse Ox 97 12/17/21 08:00 Intake & Output 12/16/21 12/17/21 12/17/21 18:59 06:59 18:59 Intake Total 25 100 Output Total 250 Balance 25 -150 Weight 91.8 kg Intake: Oral 25 100 Output: Urine 250 Other: Voiding Method Urinal Urinal Urinal # Voids 2 0 - Labs CBC & Chem 7: 12/16/21 09:00 12/16/21 09:00 Labs: Abnormal Lab Results - Last 24 Hours (Table) 12/16/21 12/16/21 12/16/21 Range/Units 09:00 09:00 16:27 Plt Count 99 L (150-450) k/uL Lymphocytes # (Manual) 0.31 L (1.0-4.8) k/uL Sodium 135 L (137-145) mmol/L BUN 60 H (9-20) mg/dL Creatinine 5.26 H (0.66-1.25) mg/dL POC Glucose (mg/dL) 100 H (75-99) mg/dL Calcium 7.6 L (8.4-10.2) mg/dL Total Protein 5.6 L (6.3-8.2) g/dL Albumin 2.9 L (3.5-5.0) g/dL
--- NOTE | 2021-12-17 13:03 | P.PN ---
Subjective Patient is seen for follow-up for CK D stage IV and hyperkalemia. Patient has agreed to start renal replacement therapy. Patient had stated that he had been scared of dialysis this was discussed in detail with him. IJ permacath was placed and patient was started on dialysis on 12/15/2021. Patient had his second treatment yesterday. He is not complaining of any major symptoms today Objective - Vital Signs Vital signs: Vital Signs Temp 97.8 F 12/17/21 08:00 Pulse 73 12/17/21 12:00 Resp 16 12/17/21 12:00 BP 116/51 12/17/21 12:00 Pulse Ox 97 12/17/21 08:00 Intake & Output 12/16/21 12/17/21 12/17/21 18:59 06:59 18:59 Intake Total 25 100 Output Total 250 Balance 25 -150 Weight 91.8 kg 91.8 kg Intake: Oral 25 100 Output: Urine 250 Other: Voiding Method Urinal Urinal Urinal # Voids 2 0 - Exam Awake comfortable not in any acute distress. Examination of the heart S1 and S2 Examination lungs bilateral breath sounds are heard Abdomen is soft nontender Examination lower extremity shows edema 1+ bilaterally with chronic skin changes. 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 Chronic kidney disease stage V with no plans for renal replacement therapy initially but patient has now agreed for dialysis. Renal replacement therapy started on 12/15/2021 2. Hyperkalemia associated with CK D and metabolic acidosis, expect improvement with renal replacement therapy 3. Metabolic acidosis associated with CK D maintained on sodium bicarb 4. Anemia of chronic disease with iron deficiency 5. Chronic diastolic CHF with [id number] mitral regurg and pulmonary hypertension 6. Hypertension with CK D 7. Volume overload, maintained on Lasix. Expect further improvement with ongoing dialysis. Plan: Discussed with discharge planning regarding outpatient chair time placement. DC sodium bicarb
[2021-12-17 16:28] LABS: Glucose,Whole Blood 75 mg/dL (75-99)
[2021-12-17 17:03] LABS: Anisocytosis Slight; Basophils % (A) 0 %; Eosinophils # (A) 0.1 k/uL (0-0.7); Eosinophils % (A) 1 %; HCT 25.2 % (39.0-53.0); HGB 7.9 gm/dL (13.0-17.5); Hypochromasia Marked; Lymphocytes # (A) 0.4 k/uL (1.0-4.8); Lymphocytes % (A) 7 %; MCH 32.7 pg (25.0-35.0); MCHC 31.2 g/dL (31.0-37.0); MCV 104.8 fL (80.0-100.0); Macrocytosis Moderate; Monocytes # (A) 0.6 k/uL (0-1.0); Monocytes % (A) 11 %; Neutrophils # (A) 4.7 k/uL (1.3-7.7); Neutrophils % (A) 78 %; RBC 2.41 m/uL (4.30-5.90); RDW 16.8 % (11.5-15.5)
[2021-12-17] MEDS: amLODIPine 5 MG TAB PO SCH ×2 (17:07→20:25)
[2021-12-17] MEDS: METOPROLOL TARTRATE 12.5 MG TAB PO SCH (17:07)
[2021-12-17] MEDS: hydrALAZINE HCL 50 MG TAB PO SCH ×3 (17:07→20:25)
[2021-12-17] MEDS: ISOSORBIDE MONONITRATE ER 30 MG TAB.ER.24H PO SCH (17:08)
[2021-12-17 17:15] LABS: Platelet Count 86 k/uL (150-450)
[2021-12-17 17:28] LABS: Albumin 2.9 g/dL (3.5-5.0); Calcium 7.8 mg/dL (8.4-10.2); Potassium 3.7 mmol/L (3.5-5.1); Total Bilirubin 0.8 mg/dL (0.2-1.3); Total Protein 5.6 g/dL (6.3-8.2); Uric Acid 2.7 mg/dL (3.5-8.5)
[2021-12-17] MEDS: HEPARIN SODIUM,PORCINE/PF 5,000 UNIT/0.5 ML SYRINGE SQ SCH ×2 (17:41→23:43)
[2021-12-17 17:55] LABS: Prothrombin Time 11.2 sec (9.0-12.0)
--- NOTE | 2021-12-17 18:22 | P.PN ---
Subjective From records 86yo M with PMH of CKD, CHF, COPD who presents to the ER today via ambulance with a complaint of progressively worsening shortness of breath. Patient reports that his Lasix prescription ran out a couple of weeks and he hasnt been able to have it refilled. Patient denies any chest pain, fever or cough. Patient states that he is followed with Dr. Elise for his kidney problems that he is call the office regarding his Lasix prescription. Patient states that he knows he has bad kidneys but will never gone dialysis he states when he gets that bad just to let him go and let him . Patient states that he just needs a medication to help keep his potassium under control. Blood work completed in ED reveals a WBC of 4.9, hemoglobin 7.8 and platelet count of 145, sodium 138, potassium 6.6 with B UN/creatinine of 100/7.37 and blood glucose of 70 Patient was treated with IV insulin, dextrose, bicarbonate and calcium per hypokalemia protocol and is admitted for further treatment of hyperkalemia Patient is seen and evaluated at follow up Potassium is at 6.1 this morning Patient remains non compliant with IV dextrose and insulin Nephrology on board; Planning to adjust medications in form of increasing oral bicarb up to 1300 milligrams TID; continue IV lasix 80 mg BID; and continue with lokema 10 grams TID IV iron has been added for anemia of chronic disease ; repeat potassium levels at 1 pm Patient continues to refuse renal replacement therapy and IV medications Subjective: I resume the care of the patient today 12/13/2021 This is a pleasant 82 years old male with multiple hospitalization, he presents with dyspnea on exertion, he is a known case o severe/advanced f chronic kidney disease, however his been refusing hemodialysis. Presents with acute on chronic CHF, both combined systolic and diastolic with ejection fraction of 55-60% prior echo and found of fluid overload and pulmonary congestion and started on IV Lasix 80 mg twice day, his potassium has been high 7.4 receiving treatment with lokelma , last dose today. Potassium is 5.7 today and hemoglobin 7.5 which is stable. Baseline 5. 5 to 7 0.0. Also he has an evidence of hemoglobin of 7.5, patient reports black stool suspicious for GI bleed, he has history of peptic ulcer disease per EGD and colonoscopy done about 2 years ago. His proBNP is elevated at 2800, he has scrotal swelling with ultrasound showing right and left hydrocele and scrotal sac edema, there is no tenderness. Leg ultrasound is negative for DVT Also patient has been complaining of from back pain, he has history of cervical degenerative disease, he says that his legs are weak but this been going on for a while now as per patient without specific medication. Patient told me he refused surgery but he wants to see chiropractor, were going to consult orthopedic surgery for this reason, orthopedic spine team recommended lumbosacral x-ray which is pending for now. It seems that his legs are chronically weak and complaining from pain in his legs, as well as ordered a t race out of the neck which was negative. However patient complains from pain from head to toe as he describes. PT/OT ordered Repeat labs in the morning Dr. Robbins team resume the care of the patient tomorrow Subjective: I resume the care of the patient again today on 12/17/2021 as below Since last time I saw him it looks like patient agreed to start hemodialysis which is already ongoing for the patient. However he refused other workup like lumbar x-ray by orthopedic team and actually today he did not complain from back pain and he did not complain from more weakness in his legs. Also has been refusing EGD recommended by surgery team to assess for his previous peptic ulcer disease versus other in the view of possible GI bleed. However patient still declining therapy, no good reason give n by the patient for refusal "I don't like it" I tried to explain for him the risks and benefits he verbalized understanding and still refuses and he got agitated with further discussion. Therefore we asked for psych consult evaluation. Also has been complaining from left groin pain and leg pain so we did Doppler of the lower extremity to which the patient agreed when I called him about and also he agreed for subcutaneous heparin, ultrasound showing chronic DVT/SVT, therefore hematology team were consulted. Patient does not look tachypneic or dyspneic which is and he came to the hospital and in view of his acute combined systolic and the cervix CHF with ejection fraction 45-50%, cardiology team on the case and currently he is euvolemic with Lasix wished orally 60 mg by mouth twice a day. No articulation is given for his paroxysmal atrial fibrillation because of his refusal also because of possible GI bleed while patient refused and workup. Objective - Vital Signs Vital signs: Vital Signs Temp 97.8 F 12/17/21 08:00 Pulse 73 12/17/21 12:00 Resp 16 12/17/21 12:00 BP 116/51 12/17/21 12:00 Pulse Ox 97 12/17/21 08:00 Intake & Output 12/16/21 12/17/21 12/17/21 18:59 06:59 18:59 Intake Total 25 100 Output Total 250 Balance 25 -150 Weight 91.8 kg 91.8 kg Intake: Oral 25 100 Output: Urine 250 Other: Voiding Method Urinal Urinal Urinal # Voids 2 0 - Exam - GENERAL: The patient is alert and oriented x3, not in any acute distress. Generalized weakness HEENT: Pupils are round and equally reacting to light. EOMI. No scleral icterus. No conjunctival pallor. Normocephalic, atraumatic. No pharyngeal erythema. No thyromegaly. CARDIOVASCULAR: S1 and S2 present. No murmurs, rubs, or gallops. PULMONARY: Chest is clear to auscultation, No wheezing or crepitation ABDOMEN: Soft, nontender, nondistended, normoactive bowel sounds. No palpable organomegaly. MUSCULOSKELETAL: No joint swelling or deformity. - EXTREMITIES: No cyanosis, clubbing, . No pitting like edema - NEUROLOGICAL: Gross neurological cranial nerves are grossly intact. Lower extremity strength is chronically mildly weak, no further worsening and weakness per patient. Sensation is intact. SKIN: No rashes. no petechiae. - Labs CBC & Chem 7: 12/17/21 16:08 12/17/21 16:08 Labs: Abnormal Lab Results - Last 24 Hours (Table) 12/16/21 Range/Units 16:27 POC Glucose (mg/dL) 100 H (75-99) mg/dL Assessment and Plan Assessment: -Advanced chronic kidney disease with hyperkalemia, now undergoing hemodialysis at after patient agrees to it -Acute on chronic systolic and diastolic CHF with ejection fraction 40-45% on echocardiogram. Currently euvolemic -Iron deficiency anemia, rule out GI bleed. History of peptic ulcer disease. Surgery team consulted and planned for EGD, however patient is refusing workup. -Noncompliance with recommendation and workup and treatment. Rule out psych illness versus lack of capacity -Atrial fibrillation, chronic, not on anticoagulation due to patient refusal and currently is also contraindicated because of possible GI bleed -Chronic back pain with chronic bilateral leg weakness secondary to possible spine degenerative disease, patient refused workup -chronic DVT/SVT, suction roller team consulted -Hypertension -History of GERD -History of osteoarthritis Plan: This is a pleasant 86 years old male who presents with CHF secondary to renal disease, currently agreeable for hemodialysis. Also like pain and weakness, evidence of chronic DVT/SVT, refusal of treatment. Continue with aspirin and oral Lasix, continue with hemodialysis as per nephrology team Patient refusal further workup or treatment for his spine disease and anemia while orthopedic team signed off the case, general surgery team also on the case consult psych team to assess for capacity for keep refusal several treatments Consult hematology team for his chronic SVT/DVT Start iron pills Labs and medication were reviewed.. Continue same treatment. Continue with symptomatic treatment. Resume home medication. Monitor lytes and vitals. DVT and GI prophylaxis. Further recommendations as per clinical course of the patient DVT prophylaxis: Subcutaneous heparin GI Prophylaxis: Ppi PT/OT: Pending Prognosis is guarded
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
[2021-12-17 21:06] LABS: Glucose,Whole Blood 98 mg/dL (75-99)
[2021-12-17 23:30] LABS: Protein, Total 5.4 g/dL (6.2-8.2)
[2021-12-17] MEDS: FERROUS SULFATE 325 MG TAB PO SCH (23:40)
[2021-12-18 06:30] LABS: Glucose,Whole Blood 88 mg/dL (75-99)
[2021-12-18] MEDS: FERROUS SULFATE 325 MG TAB PO SCH ×2 (06:36→17:09)
[2021-12-18] MEDS: PANTOPRAZOLE 40 MG TABLET PO SCH ×2 (06:36→17:09)
[2021-12-18 09:11] LABS: Anisocytosis Slight; Basophils % (A) 0 %; Eosinophils % (A) 1 %; HCT 24.8 % (39.0-53.0); HGB 7.6 gm/dL (13.0-17.5); Hypochromasia Marked; Lymphocytes # (A) 0.4 k/uL (1.0-4.8); Lymphocytes % (A) 6 %; MCH 32.4 pg (25.0-35.0); MCHC 30.7 g/dL (31.0-37.0); MCV 105.5 fL (80.0-100.0); Macrocytosis Moderate; Mean Platelet Volume 7.8; Monocytes # (A) 0.6 k/uL (0-1.0); Monocytes % (A) 9 %; Neutrophils # (A) 4.9 k/uL (1.3-7.7); Neutrophils % (A) 80 %; Platelet Count 103 k/uL (150-450); RBC 2.35 m/uL (4.30-5.90); RDW 16.9 % (11.5-15.5); WBC 6.1 k/uL (3.8-10.6)
[2021-12-18] MEDS: FUROSEMIDE 20 MG TAB PO SCH ×2 (09:35→17:09)
[2021-12-18] MEDS: CYANOCOBALAMIN 500 MCG TAB PO SCH (09:35)
[2021-12-18] MEDS: CHOLECALCIFEROL 125 MCG (5000 IU) TABLET PO SCH (09:35)
[2021-12-18] MEDS: ASPIRIN 81 MG PO SCH (09:36)
[2021-12-18] MEDS: METOPROLOL TARTRATE 12.5 MG TAB PO SCH (09:36)
[2021-12-18] MEDS: SODIUM BICARBONATE TAB 650 MG TAB PO SCH ×3 (09:36→22:01)
[2021-12-18] MEDS: hydrALAZINE HCL 50 MG TAB PO SCH ×3 (09:36→22:02)
[2021-12-18] MEDS: HEPARIN SODIUM,PORCINE/PF 5,000 UNIT/0.5 ML SYRINGE SQ SCH ×2 (09:36→22:01)
[2021-12-18] MEDS: amLODIPine 5 MG TAB PO SCH ×2 (09:36→22:01)
[2021-12-18] MEDS: polyethylene glycoL 3350 17 GM POWD.PACK PO SCH (09:37)
--- NOTE | 2021-12-18 11:08 | P.PN ---
Subjective Progress Note Date: 12/18/21 Patient is a pleasant 86-year-old male with history of hypertension, persistent atrial fibrillation (not on anticoagulation secondary to refusal in the past), chronic kidney disease (refusal of renal replacement therapy), coronary artery disease status post previous PCI of the mid LAD in 2006, hyperlipidemia, GERD, duodenal ulcer, prior GI bleed. He does not follow with a hemmer automatic. We have been consulted for congestive heart failure 12/16/21. Patient was admitted on 12/10/2021 with complaints of shortness of breath, reported that his Lasix prescription ran out and unable to have it refilled. Patient found to be in acute renal failure, hyperkalemic, metabolic acidosis, volume overload. Nephrology was consulted, patient started on IV Lasix. Patient was agreeable for renal replacement therapy, Dialysis was initiated on 12/15/2021. He also reported black tarry stools, EGD was recommended, however, patient refused Patient is seen today resting in bed with no signs of acute distress. Patient has no complaints of shortness of breath, he is on 2 L nasal cannula. He states does not wear home O2. Will try to wean patient onto room air today if tolerated. Patient received dialysis yesterday. Patient states today he does not want any more dialysis at this time. Creatinine has greatly improved with dialysis today is 2.99. Hemoglobin is 7.6. Patient remains on aspirin, Norvasc, Lasix, sub-q heparin, hydralazine, Imdur, Lopressor. Patient has bilateral lower extremity edema. He underwent a bilateral lower extremity Doppler which was negative for DVT Objective - Vital Signs Vital signs: Vital Signs Temp 98.5 F 12/18/21 09:46 Pulse 70 12/18/21 09:46 Resp 18 12/18/21 09:46 BP 122/58 12/18/21 09:46 Pulse Ox 91 L 12/18/21 09:46 Intake & Output 12/17/21 12/18/21 12/18/21 18:59 06:59 18:59 Intake Total 120 Output Total 2300 250 Balance -2300 -250 120 Weight 91.8 kg Intake: Oral 120 Output: Urine 250 Hemodialysis 2300 Other: Voiding Method Urinal Urinal Urinal # Voids 0 - Exam PHYSICAL EXAMINATION Vital signs reviewed. CONSTITUTIONAL: No apparent distress. HEENT: Neck Supple. No JVD. CHEST EXAMINATION: Lungs are diminished to auscultation bilaterally. HEART EXAMINATION: Irregular rate and rhythm. S1, S2 heard. Systolic ejection murmur noted ABDOMEN: Soft, nontender. Positive bowel sounds. EXTREMITIES: 2+ peripheral pulses, mild lower extremity edema and no calf tenderness. NEUROLOGIC EXAMINATION: Patient is awake, alert and oriented x3. - Labs CBC & Chem 7: 12/18/21 08:17 12/17/21 16:08 Labs: Abnormal Lab Results - Last 24 Hours (Table) 12/17/21 12/17/21 12/17/21 Range/Units 16:08 16:08 16:08 RBC 2.41 L (4.30-5.90) m/uL Hgb 7.9 L (13.0-17.5) gm/dL Hct 25.2 L (39.0-53.0) % MCV 104.8 H (80.0-100.0) fL MCHC (31.0-37.0) g/dL RDW 16.8 H (11.5-15.5) % Plt Count 86 L (150-450) k/uL Lymphocytes # 0.4 L (1.0-4.8) k/uL D-Dimer 4.10 H (<0.60) mg/L FEU Sodium 135 L (137-145) mmol/L BUN 27 H (9-20) mg/dL Creatinine 2.99 H (0.66-1.25) mg/dL Glucose 66 L (74-99) mg/dL Uric Acid 2.7 L (3.5-8.5) mg/dL Calcium 7.8 L (8.4-10.2) mg/dL Total Protein 5.6 L (6.3-8.2) g/dL Total Protein (PEP) (6.2-8.2) g/dL Albumin 2.9 L (3.5-5.0) g/dL 12/17/21 12/18/21 Range/Units 16:08 08:17 RBC 2.35 L (4.30-5.90) m/uL Hgb 7.6 L (13.0-17.5) gm/dL Hct 24.8 L (39.0-53.0) % MCV 105.5 H (80.0-100.0) fL MCHC 30.7 L (31.0-37.0) g/dL RDW 16.9 H (11.5-15.5) % Plt Count 103 L (150-450) k/uL Lymphocytes # 0.4 L (1.0-4.8) k/uL D-Dimer (<0.60) mg/L FEU Sodium (137-145) mmol/L BUN (9-20) mg/dL Creatinine (0.66-1.25) mg/dL Glucose (74-99) mg/dL Uric Acid (3.5-8.5) mg/dL Calcium (8.4-10.2) mg/dL Total Protein (6.3-8.2) g/dL Total Protein (PEP) 5.4 L (6.2-8.2) g/dL Albumin (3.5-5.0) g/dL Assessment and Plan Assessment: Acute on chronic heart failure with preserved EF, impaired 40-45%, related to volume overload, renal failure Acute renal failure, requiring initiating of hemodialysis on 12/15/2021 Elevated troponins not indicative of acute coronary syndrome. Related to acute renal failure, no evidence of angina symptoms. Cardiomyopathy EF 40-45%, unclear if ischemic vs non-ischemic at this time Persistent atrial fibrillation (not on anticoagulation secondary to refusal in the past) Coronary artery disease status post previous PCI of the mid LAD in 2006 Anemia Melena Hyperlipidemia GERD History of duodenal ulcer History of prior GI bleed. Hypertension Coronary artery disease with history of prior PCI Valvular heart disease Plan: We will continue with current medical therapy with amlodipine, aspirin, hydralazine Lasix and metoprolol Hemodialysis ordered per nephrology Patient not on anticoagulation for atrial fibrillation due to refusal patient's continues to refuse GI work up for anemia with EGD No ACEI/ARB due to renal function at this time. Further recommendations based on clinical course Nurse practitioner note has been reviewed by physician. Signing provider agrees with the documented findings, assessment, and plan of care.
--- NOTE | 2021-12-18 11:34 | P.PN ---
Subjective Patient is seen for follow-up for CK D stage IV and hyperkalemia. Patient has agreed to start renal replacement therapy. Patient had stated that he had been scared of dialysis this was discussed in detail with him. IJ permacath was placed and patient was started on dialysis on 12/15/2021. He has had 3 treatments thus far. Volume status is significantly improved. However this morning patient states that he will does not want to continue with dialysis. I have advised him that we will be holding off on dialysis over the weekend and we can rediscuss this issue with him again on Monday and if he absolutely does not want to continue with renal replacement therapy the IJ permacath will be discontinued. Objective - Vital Signs Vital signs: Vital Signs Temp 98.5 F 12/18/21 09:46 Pulse 70 12/18/21 09:46 Resp 18 12/18/21 09:46 BP 122/58 12/18/21 09:46 Pulse Ox 91 L 12/18/21 09:46 Intake & Output 12/17/21 12/18/21 12/18/21 18:59 06:59 18:59 Intake Total 120 Output Total 2300 250 Balance -2300 -250 120 Weight 91.8 kg Intake: Oral 120 Output: Urine 250 Hemodialysis 2300 Other: Voiding Method Urinal Urinal Urinal # Voids 0 - Exam Awake comfortable not in any acute distress. Examination of the heart S1 and S2 Examination lungs bilateral breath sounds are heard Abdomen is soft nontender Examination lower extremity shows chronic skin changes. GRILL CHEF exam grossly intact - Labs CBC & Chem 7: 12/18/21 08:17 12/17/21 16:08 Labs: Abnormal Lab Results - Last 24 Hours (Table) 12/17/21 12/17/21 12/17/21 Range/Units 16:08 16:08 16:08 RBC 2.41 L (4.30-5.90) m/uL Hgb 7.9 L (13.0-17.5) gm/dL Hct 25.2 L (39.0-53.0) % MCV 104.8 H (80.0-100.0) fL MCHC (31.0-37.0) g/dL RDW 16.8 H (11.5-15.5) % Plt Count 86 L (150-450) k/uL Lymphocytes # 0.4 L (1.0-4.8) k/uL D-Dimer 4.10 H (<0.60) mg/L FEU Sodium 135 L (137-145) mmol/L BUN 27 H (9-20) mg/dL Creatinine 2.99 H (0.66-1.25) mg/dL Glucose 66 L (74-99) mg/dL Uric Acid 2.7 L (3.5-8.5) mg/dL Calcium 7.8 L (8.4-10.2) mg/dL Total Protein 5.6 L (6.3-8.2) g/dL Total Protein (PEP) (6.2-8.2) g/dL Albumin 2.9 L (3.5-5.0) g/dL 12/17/21 12/18/21 Range/Units 16:08 08:17 RBC 2.35 L (4.30-5.90) m/uL Hgb 7.6 L (13.0-17.5) gm/dL Hct 24.8 L (39.0-53.0) % MCV 105.5 H (80.0-100.0) fL MCHC 30.7 L (31.0-37.0) g/dL RDW 16.9 H (11.5-15.5) % Plt Count 103 L (150-450) k/uL Lymphocytes # 0.4 L (1.0-4.8) k/uL D-Dimer (<0.60) mg/L FEU Sodium (137-145) mmol/L BUN (9-20) mg/dL Creatinine (0.66-1.25) mg/dL Glucose (74-99) mg/dL Uric Acid (3.5-8.5) mg/dL Calcium (8.4-10.2) mg/dL Total Protein (6.3-8.2) g/dL Total Protein (PEP) 5.4 L (6.2-8.2) g/dL Albumin (3.5-5.0) g/dL Assessment and Plan Assessment: 1. Chronic kidney disease stage V with no plans for renal replacement therapy initially but patient has now agreed for dialysis. Renal replacement therapy started on 12/15/2021. Patient has had 3 treatments thus far and this morning he states that he does not want to continue with the dialysis. We will rediscuss this again with him on Monday .At this time and will give him a break for the weekend. 2. Hyperkalemia associated with CK D and metabolic acidosis, expect improvement with renal replacement therapy 3. Metabolic acidosis associated with CK D maintained on sodium bicarb 4. Anemia of chronic disease with iron deficiency 5. Chronic diastolic CHF with [id number] mitral regurg and pulmonary hypertension 6. Hypertension with CK D 7. Volume overload. Improved significantly Plan: No dialysis over the weekend Renal replacement therapy on Monday and if patient absolutely does not want to continue with renal replacement therapy we will discontinue the IJ permacath. JAVED [place]
[2021-12-18 11:37] LABS: Glucose,Whole Blood 125 mg/dL (75-99)
--- NOTE | 2021-12-18 13:17 | P.CN ---
Psychiatric Consult - . Consult date: 12/18/21 Consult:: 12/18/21 13:12 IDENTIFYING DATA: Patient is a 86-year-old male who lives by himself and is on Social Security HPI: Patient is admitted for CHF and psychiatry is consulted because he has been refusing many treatments including EGD. When this is discussed with the patient, he adamantly refuses EGD but is unable to give any reason for the refusal or the risks of the refusal or the indication for the EGD. When he is asked about if he responds "I don't care" and becomes very irritable. When asked about possible consequences of refusing EGD or refusing treatment, he replies "nothing" Patient denies any suicidal or homicidal ideations intent or plan. NO current or past history of agatha or hallucinations. PAST PSYCHIATRIC HISTORY: Denies PMH: A. fib, GERD, hypertension, OA, renal disease, CHF ALLERGIES: as per EMR CHEMICAL DEPENDENCY HISTORY: Denies SOCIAL HISTORY: Lives by himself, no legal issues, on Social Security MENTAL STATUS EXAM: General Appearance: 86-year-old male, appears older than stated age, dressed appropriately in hospital gown, in no acute distress Behavior: Irritable Speech: Normal rate, becomes loud when irritable Mood/Affect: "in pain" full range Suicidality/Homicidality: Patient denies having any homicidal ideation intent or plan. [Denies any suicidal ideations intent or plan] Perceptions: Patient denies any visual hallucinations [and denies any auditory hallucinations] Though content/process: [There is no evidence of any delusional thought content and thought process is linear and goal-directed.] Memory and concentration: grossly intact for the purposes of this session. Judgment and insight: [poor] IMPRESSIONS: At this time, patient does not have capacity to refuse procedures or treatment. He does not have a fair understanding of his medical conditions or the procedures. PLAN: -does not have capacity to refuse procedures or treatment at this time -please continue to educate patient on every procedure and treatment -psych will sign off] []
[2021-12-18 16:22] LABS: Glucose,Whole Blood 145 mg/dL (75-99)
[2021-12-18] MEDS: ISOSORBIDE MONONITRATE ER 30 MG TAB.ER.24H PO SCH (17:09)
--- NOTE | 2021-12-18 18:26 | P.PN ---
Subjective From records 86yo M with PMH of CKD, CHF, COPD who presents to the ER today via ambulance with a complaint of progressively worsening shortness of breath. Patient reports that his Lasix prescription ran out a couple of weeks and he hasnt been able to have it refilled. Patient denies any chest pain, fever or cough. Patient states that he is followed with Dr. Elise for his kidney problems that he is call the office regarding his Lasix prescription. Patient states that he knows he has bad kidneys but will never gone dialysis he states when he gets that bad just to let him go and let him . Patient states that he just needs a medication to help keep his potassium under control. Blood work completed in ED reveals a WBC of 4.9, hemoglobin 7.8 and platelet count of 145, sodium 138, potassium 6.6 with B UN/creatinine of 100/7.37 and blood glucose of 70 Patient was treated with IV insulin, dextrose, bicarbonate and calcium per hypokalemia protocol and is admitted for further treatment of hyperkalemia Patient is seen and evaluated at follow up Potassium is at 6.1 this morning Patient remains non compliant with IV dextrose and insulin Nephrology on board; Planning to adjust medications in form of increasing oral bicarb up to 1300 milligrams TID; continue IV lasix 80 mg BID; and continue with lokema 10 grams TID IV iron has been added for anemia of chronic disease ; repeat potassium levels at 1 pm Patient continues to refuse renal replacement therapy and IV medications Subjective: I resume the care of the patient today 12/13/2021 This is a pleasant 82 years old male with multiple hospitalization, he presents with dyspnea on exertion, he is a known case o severe/advanced f chronic kidney disease, however his been refusing hemodialysis. Presents with acute on chronic CHF, both combined systolic and diastolic with ejection fraction of 55-60% prior echo and found of fluid overload and pulmonary congestion and started on IV Lasix 80 mg twice day, his potassium has been high 7.4 receiving treatment with lokelma , last dose today. Potassium is 5.7 today and hemoglobin 7.5 which is stable. Baseline 5. 5 to 7 0.0. Also he has an evidence of hemoglobin of 7.5, patient reports black stool suspicious for GI bleed, he has history of peptic ulcer disease per EGD and colonoscopy done about 2 years ago. His proBNP is elevated at 2800, he has scrotal swelling with ultrasound showing right and left hydrocele and scrotal sac edema, there is no tenderness. Leg ultrasound is negative for DVT Also patient has been complaining of from back pain, he has history of cervical degenerative disease, he says that his legs are weak but this been going on for a while now as per patient without specific medication. Patient told me he refused surgery but he wants to see chiropractor, were going to consult orthopedic surgery for this reason, orthopedic spine team recommended lumbosacral x-ray which is pending for now. It seems that his legs are chronically weak and complaining from pain in his legs, as well as ordered a t race out of the neck which was negative. However patient complains from pain from head to toe as he describes. PT/OT ordered Repeat labs in the morning Dr. Robbins team resume the care of the patient tomorrow Subjective: I resume the care of the patient again today on 12/17/2021 as below Since last time I saw him it looks like patient agreed to start hemodialysis which is already ongoing for the patient. However he refused other workup like lumbar x-ray by orthopedic team and actually today he did not complain from back pain and he did not complain from more weakness in his legs. Also has been refusing EGD recommended by surgery team to assess for his previous peptic ulcer disease versus other in the view of possible GI bleed. However patient still declining therapy, no good reason give n by the patient for refusal "I don't like it" I tried to explain for him the risks and benefits he verbalized understanding and still refuses and he got agitated with further discussion. Therefore we asked for psych consult evaluation. Also has been complaining from left groin pain and leg pain so we did Doppler of the lower extremity to which the patient agreed when I called him about and also he agreed for subcutaneous heparin, ultrasound showing chronic DVT/SVT, therefore hematology team were consulted. Patient does not look tachypneic or dyspneic which is and he came to the hospital and in view of his acute combined systolic and the cervix CHF with ejection fraction 45-50%, cardiology team on the case and currently he is euvolemic with Lasix wished orally 60 mg by mouth twice a day. No articulation is given for his paroxysmal atrial fibrillation because of his refusal also because of possible GI bleed while patient refused and workup. 12/18/2021 pt clinically looks the same with no much change in his symptoms , he still complaining of from groin pain, lethargic, does not show much understanding and retracted very quickly. Hemoglobin 7.6. Patient does not have venous thrombosis per hematology team reviewed the results of the venous Dopplers with the radiologist. Therefore he does not need anticoagulation of from this perspective I think the big change today was psychiatrist evaluated the patient and found him does not have the capacity to make medical decisions which is noticed during our conversation with the patient when we tried to explain thinks for him he shows no interest, he showed understanding of the consequences and he got irritated very quickly. web services manager consult was placed in this regard Objective - Vital Signs Vital signs: Vital Signs Temp 98.5 F 12/18/21 09:46 Pulse 70 12/18/21 09:46 Resp 18 12/18/21 09:46 BP 122/58 12/18/21 09:46 Pulse Ox 91 L 12/18/21 09:46 Intake & Output 12/17/21 12/18/21 12/18/21 18:59 06:59 18:59 Intake Total 120 Output Total 2300 250 150 Balance -2300 -250 -30 Weight 91.8 kg Intake: Oral 120 Output: Urine 250 150 Hemodialysis 2300 Other: Voiding Method Urinal Urinal Urinal # Voids 0 - Exam - GENERAL: The patient is alert and oriented x3, not in any acute distress. Generalized weakness HEENT: Pupils are round and equally reacting to light. EOMI. No scleral icterus. No conjunctival pallor. Normocephalic, atraumatic. No pharyngeal erythema. No thyromegaly. CARDIOVASCULAR: S1 and S2 present. No murmurs, rubs, or gallops. PULMONARY: Chest is clear to auscultation, No wheezing or crepitation ABDOMEN: Soft, nontender, nondistended, normoactive bowel sounds. No palpable organomegaly. MUSCULOSKELETAL: No joint swelling or deformity. - EXTREMITIES: No cyanosis, clubbing, . No pitting like edema - NEUROLOGICAL: Gross neurological cranial nerves are grossly intact. Lower extremity strength is chronically mildly weak, no further worsening and weakness per patient. Sensation is intact. SKIN: No rashes. no petechiae. - Labs CBC & Chem 7: 12/18/21 08:17 12/17/21 16:08 Labs: Abnormal Lab Results - Last 24 Hours (Table) 12/17/21 12/17/21 12/17/21 Range/Units 16:08 16:08 16:08 RBC 2.41 L (4.30-5.90) m/uL Hgb 7.9 L (13.0-17.5) gm/dL Hct 25.2 L (39.0-53.0) % MCV 104.8 H (80.0-100.0) fL MCHC (31.0-37.0) g/dL RDW 16.8 H (11.5-15.5) % Plt Count 86 L (150-450) k/uL Lymphocytes # 0.4 L (1.0-4.8) k/uL D-Dimer 4.10 H (<0.60) mg/L FEU Sodium 135 L (137-145) mmol/L BUN 27 H (9-20) mg/dL Creatinine 2.99 H (0.66-1.25) mg/dL Glucose 66 L (74-99) mg/dL POC Glucose (mg/dL) (75-99) mg/dL Uric Acid 2.7 L (3.5-8.5) mg/dL Calcium 7.8 L (8.4-10.2) mg/dL Total Protein 5.6 L (6.3-8.2) g/dL Total Protein (PEP) (6.2-8.2) g/dL Albumin 2.9 L (3.5-5.0) g/dL 12/17/21 12/18/21 12/18/21 Range/Units 16:08 08:17 11:35 RBC 2.35 L (4.30-5.90) m/uL Hgb 7.6 L (13.0-17.5) gm/dL Hct 24.8 L (39.0-53.0) % MCV 105.5 H (80.0-100.0) fL MCHC 30.7 L (31.0-37.0) g/dL RDW 16.9 H (11.5-15.5) % Plt Count 103 L (150-450) k/uL Lymphocytes # 0.4 L (1.0-4.8) k/uL D-Dimer (<0.60) mg/L FEU Sodium (137-145) mmol/L BUN (9-20) mg/dL Creatinine (0.66-1.25) mg/dL Glucose (74-99) mg/dL POC Glucose (mg/dL) 125 H (75-99) mg/dL Uric Acid (3.5-8.5) mg/dL Calcium (8.4-10.2) mg/dL Total Protein (6.3-8.2) g/dL Total Protein (PEP) 5.4 L (6.2-8.2) g/dL Albumin (3.5-5.0) g/dL Assessment and Plan Assessment: -Advanced chronic kidney disease with hyperkalemia, now undergoing hemodialysis at after patient agrees to it -Acute on chronic systolic and diastolic CHF with ejection fraction 40-45% on echocardiogram. Currently euvolemic -Iron deficiency anemia, rule out GI bleed. History of peptic ulcer disease. Surgery team consulted and planned for EGD, however patient is refusing workup. -Noncompliance with recommendation and workup and treatment. Patient lacks of capacity to make medical decision for psychiatrist, as well as for evaluation -Atrial fibrillation, chronic, not on anticoagulation due to patient refusal and currently is also contraindicated because of possible GI bleed -Chronic back pain with chronic bilateral leg weakness secondary to possible spine degenerative disease, patient refused workup -chronic DVT/SVT, transmission mechanic team consulted -Hypertension -History of GERD -History of osteoarthritis Plan: This is a pleasant 86 years old male who presents with CHF secondary to renal disease, currently agreeable for hemodialysis. Also like pain and weakness, refusal of treatment. Continue with aspirin and oral Lasix, continue with hemodialysis as per nephrology team, next hemodialysis is on Monday Patient refusal further workup or treatment for his spine disease and anemia while orthopedic team signed off the case, general surgery team also on the case . Per psychiatric evaluated the patient, he likes [employer] therefore we consulted director case management No evidence of extremity SVT/DVT per hematology/oncology team Start iron pills Labs and medication were reviewed.. Continue same treatment. Continue with symptomatic treatment. Resume home medication. Monitor lytes and vitals. DVT and GI prophylaxis. Further recommendations as per clinical course of the patient DVT prophylaxis: Subcutaneous heparin GI Prophylaxis: Ppi Prognosis is guarded
[2021-12-18 20:38] LABS: Glucose,Whole Blood 124 mg/dL (75-99)
[2021-12-18] MEDS: HYDROcodone/APAP 10-325MG 1 EACH TAB PO PRN (22:01)
[2021-12-19 06:06] LABS: Glucose,Whole Blood 117 mg/dL (75-99)
[2021-12-19] MEDS: FERROUS SULFATE 325 MG TAB PO SCH ×2 (06:33→17:08)
[2021-12-19] MEDS: PANTOPRAZOLE 40 MG TABLET PO SCH ×2 (06:33→17:07)
[2021-12-19] MEDS: polyethylene glycoL 3350 17 GM POWD.PACK PO SCH (08:54)
[2021-12-19] MEDS: HEPARIN SODIUM,PORCINE/PF 5,000 UNIT/0.5 ML SYRINGE SQ SCH ×2 (08:54→20:59)
[2021-12-19] MEDS: CYANOCOBALAMIN 500 MCG TAB PO SCH (08:55)
[2021-12-19] MEDS: ASPIRIN 81 MG PO SCH (08:55)
[2021-12-19] MEDS: CHOLECALCIFEROL 125 MCG (5000 IU) TABLET PO SCH (08:55)
[2021-12-19] MEDS: hydrALAZINE HCL 50 MG TAB PO SCH ×3 (08:55→20:59)
[2021-12-19] MEDS: amLODIPine 5 MG TAB PO SCH ×2 (08:55→20:59)
[2021-12-19] MEDS: FUROSEMIDE 20 MG TAB PO SCH ×2 (08:55→17:08)
[2021-12-19] MEDS: ISOSORBIDE MONONITRATE ER 30 MG TAB.ER.24H PO SCH (08:56)
[2021-12-19] MEDS: METOPROLOL TARTRATE 12.5 MG TAB PO SCH (08:56)
[2021-12-19] MEDS: SODIUM BICARBONATE TAB 650 MG TAB PO SCH ×3 (08:56→20:59)
--- NOTE | 2021-12-19 11:04 | P.PN ---
Subjective From records 86yo M with PMH of CKD, CHF, COPD who presents to the ER today via ambulance with a complaint of progressively worsening shortness of breath. Patient reports that his Lasix prescription ran out a couple of weeks and he hasnt been able to have it refilled. Patient denies any chest pain, fever or cough. Patient states that he is followed with Dr. Elise for his kidney problems that he is call the office regarding his Lasix prescription. Patient states that he knows he has bad kidneys but will never gone dialysis he states when he gets that bad just to let him go and let him . Patient states that he just needs a medication to help keep his potassium under control. Blood work completed in ED reveals a WBC of 4.9, hemoglobin 7.8 and platelet count of 145, sodium 138, potassium 6.6 with B UN/creatinine of 100/7.37 and blood glucose of 70 Patient was treated with IV insulin, dextrose, bicarbonate and calcium per hypokalemia protocol and is admitted for further treatment of hyperkalemia Patient is seen and evaluated at follow up Potassium is at 6.1 this morning Patient remains non compliant with IV dextrose and insulin Nephrology on board; Planning to adjust medications in form of increasing oral bicarb up to 1300 milligrams TID; continue IV lasix 80 mg BID; and continue with lokema 10 grams TID IV iron has been added for anemia of chronic disease ; repeat potassium levels at 1 pm Patient continues to refuse renal replacement therapy and IV medications Subjective: I resume the care of the patient today 12/13/2021 This is a pleasant 82 years old male with multiple hospitalization, he presents with dyspnea on exertion, he is a known case o severe/advanced f chronic kidney disease, however his been refusing hemodialysis. Presents with acute on chronic CHF, both combined systolic and diastolic with ejection fraction of 55-60% prior echo and found of fluid overload and pulmonary congestion and started on IV Lasix 80 mg twice day, his potassium has been high 7.4 receiving treatment with lokelma , last dose today. Potassium is 5.7 today and hemoglobin 7.5 which is stable. Baseline 5. 5 to 7 0.0. Also he has an evidence of hemoglobin of 7.5, patient reports black stool suspicious for GI bleed, he has history of peptic ulcer disease per EGD and colonoscopy done about 2 years ago. His proBNP is elevated at 2800, he has scrotal swelling with ultrasound showing right and left hydrocele and scrotal sac edema, there is no tenderness. Leg ultrasound is negative for DVT Also patient has been complaining of from back pain, he has history of cervical degenerative disease, he says that his legs are weak but this been going on for a while now as per patient without specific medication. Patient told me he refused surgery but he wants to see chiropractor, were going to consult orthopedic surgery for this reason, orthopedic spine team recommended lumbosacral x-ray which is pending for now. It seems that his legs are chronically weak and complaining from pain in his legs, as well as ordered a t race out of the neck which was negative. However patient complains from pain from head to toe as he describes. PT/OT ordered Repeat labs in the morning Dr. Robbins team resume the care of the patient tomorrow Subjective: I resume the care of the patient again today on 12/17/2021 as below Since last time I saw him it looks like patient agreed to start hemodialysis which is already ongoing for the patient. However he refused other workup like lumbar x-ray by orthopedic team and actually today he did not complain from back pain and he did not complain from more weakness in his legs. Also has been refusing EGD recommended by surgery team to assess for his previous peptic ulcer disease versus other in the view of possible GI bleed. However patient still declining therapy, no good reason give n by the patient for refusal "I don't like it" I tried to explain for him the risks and benefits he verbalized understanding and still refuses and he got agitated with further discussion. Therefore we asked for psych consult evaluation. Also has been complaining from left groin pain and leg pain so we did Doppler of the lower extremity to which the patient agreed when I called him about and also he agreed for subcutaneous heparin, ultrasound showing chronic DVT/SVT, therefore hematology team were consulted. Patient does not look tachypneic or dyspneic which is and he came to the hospital and in view of his acute combined systolic and the cervix CHF with ejection fraction 45-50%, cardiology team on the case and currently he is euvolemic with Lasix wished orally 60 mg by mouth twice a day. No articulation is given for his paroxysmal atrial fibrillation because of his refusal also because of possible GI bleed while patient refused and workup. 12/18/2021 pt clinically looks the same with no much change in his symptoms , he still complaining of from groin pain, lethargic, does not show much understanding and retracted very quickly. Hemoglobin 7.6. Patient does not have venous thrombosis per hematology team reviewed the results of the venous Dopplers with the radiologist. Therefore he does not need anticoagulation of from this perspective I think the big change today was psychiatrist evaluated the patient and found him does not have the capacity to make medical decisions which is noticed during our conversation with the patient when we tried to explain things for him he shows no interest, he showed no understanding of the consequences and he got irritated very quickly. manager inventory control consult was placed in this regard 12/19/2021 patient is awake and alert, he still refusing treatment, he lacks capacity to make medical decisions based upon my evaluation and psychiatrist, patient does not show understanding R interest in his management plan patient is hemodynamically stable. Ferrous sulfate was admitted for his anemia, patient has been refusing EGD by surgery team. Repeat hemoglobin from today is pending. Also he is on baby aspirin 81 mg which is home dose. manager inventory control [facility] Objective - Vital Signs Vital signs: Vital Signs Temp 97.8 F 12/19/21 09:09 Pulse 68 12/19/21 09:09 Resp 16 12/19/21 09:09 BP 120/57 12/19/21 09:09 Pulse Ox 95 12/19/21 09:09 Intake & Output 12/18/21 12/19/21 12/19/21 17:59 06:59 18:59 Intake Total 420 Output Total Balance 420 Weight Intake: Oral 420 Output: Urine Stool Urine/Stool Mix Other: Voiding Method # Voids # Bowel Movements - Exam - GENERAL: The patient is alert and oriented x3, not in any acute distress. Generalized weakness HEENT: Pupils are round and equally reacting to light. EOMI. No scleral icterus. No conjunctival pallor. Normocephalic, atraumatic. No pharyngeal erythema. No thyromegaly. CARDIOVASCULAR: S1 and S2 present. No murmurs, rubs, or gallops. PULMONARY: Chest is clear to auscultation, No wheezing or crepitation ABDOMEN: Soft, nontender, nondistended, normoactive bowel sounds. No palpable organomegaly. MUSCULOSKELETAL: No joint swelling or deformity. - EXTREMITIES: No cyanosis, clubbing, . No pitting like edema - NEUROLOGICAL: Gross neurological cranial nerves are grossly intact. Lower extremity strength is chronically mildly weak, no further worsening and weakness per patient. Sensation is intact. SKIN: No rashes. no petechiae. - Labs CBC & Chem 7: 12/18/21 08:17 12/17/21 16:08 Labs: Abnormal Lab Results - Last 24 Hours (Table) 12/18/21 12/18/21 12/18/21 Range/Units 08:17 11:35 16:19 RBC 2.35 L (4.30-5.90) m/uL Hgb 7.6 L (13.0-17.5) gm/dL Hct 24.8 L (39.0-53.0) % MCV 105.5 H (80.0-100.0) fL MCHC 30.7 L (31.0-37.0) g/dL RDW 16.9 H (11.5-15.5) % Plt Count 103 L (150-450) k/uL Lymphocytes # 0.4 L (1.0-4.8) k/uL POC Glucose (mg/dL) 125 H 145 H (75-99) mg/dL 12/18/21 12/19/21 Range/Units 20:36 06:03 RBC (4.30-5.90) m/uL Hgb (13.0-17.5) gm/dL Hct (39.0-53.0) % MCV (80.0-100.0) fL MCHC (31.0-37.0) g/dL RDW (11.5-15.5) % Plt Count (150-450) k/uL Lymphocytes # (1.0-4.8) k/uL POC Glucose (mg/dL) 124 H 117 H (75-99) mg/dL Assessment and Plan Assessment: -Advanced chronic kidney disease with hyperkalemia, now undergoing hemodialysis at after patient agrees to it -Acute on chronic systolic and diastolic CHF with ejection fraction 40-45% on echocardiogram. Currently euvolemic -Iron deficiency anemia, rule out GI bleed. History of peptic ulcer disease. Surgery team consulted and planned for EGD, however patient is refusing workup. -Noncompliance with recommendation and workup and treatment. Patient lacks of capacity to make medical decision for psychiatrist, as well as for evaluation -Atrial fibrillation, chronic, not on anticoagulation due to patient refusal and currently is also contraindicated because of possible GI bleed -Chronic back pain with chronic bilateral leg weakness secondary to possible spine degenerative disease, patient refused workup -chronic DVT/SVT, cell biologist team consulted -Hypertension -History of GERD -History of osteoarthritis Plan: This is a pleasant 86 years old male who presents with CHF secondary to renal disease, currently agreeable for hemodialysis. Also like pain and weakness, refusal of treatment. Continue with aspirin and oral Lasix, continue with hemodialysis as per nephrology team, next hemodialysis is on Monday Patient refusal further workup or treatment for his spine disease and anemia while orthopedic team signed off the case, general surgery team also on the case . Per psychiatric evaluated the patient, he lacks capacity to make medical decision therefore we consulted rehabilitation caseworker No evidence of extremity SVT/DVT per hematology/oncology team Start iron pills Labs and medication were reviewed.. Continue same treatment. Continue with symptomatic treatment. Resume home medication. Monitor lytes and vitals. DVT and GI prophylaxis. Further recommendations as per clinical course of the patient DVT prophylaxis: Subcutaneous heparin GI Prophylaxis: Ppi Prognosis is guarded
[2021-12-19 11:46] LABS: Anisocytosis Slight; HCT 23.8 % (39.0-53.0); HGB 7.5 gm/dL (13.0-17.5); Hypochromasia Marked; MCH 33.4 pg (25.0-35.0); MCHC 31.4 g/dL (31.0-37.0); MCV 106.1 fL (80.0-100.0); Macrocytosis Marked; Mean Platelet Volume 7.7; Platelet Count 106 k/uL (150-450); RBC 2.24 m/uL (4.30-5.90); RDW 17.1 % (11.5-15.5); WBC 6.9 k/uL (3.8-10.6)
--- NOTE | 2021-12-19 12:41 | P.PN ---
Subjective Progress Note Date: 12/19/21 Patient is a pleasant 86-year-old male with history of hypertension, persistent atrial fibrillation (not on anticoagulation secondary to refusal in the past), chronic kidney disease (refusal of renal replacement therapy), coronary artery disease status post previous PCI of the mid LAD in 2006, hyperlipidemia, GERD, duodenal ulcer, prior GI bleed. He does not follow with a associate medical director. We have been consulted for congestive heart failure 12/16/21. Patient was admitted on 12/10/2021 with complaints of shortness of breath, reported that his Lasix prescription ran out and unable to have it refilled. Patient found to be in acute renal failure, hyperkalemic, metabolic acidosis, volume overload. Nephrology was consulted, patient started on IV Lasix. Patient was agreeable for renal replacement therapy, Dialysis was initiated on 12/15/2021. He also reported black tarry stools, EGD was recommended, however, patient refused Patient is seen today resting in bed with no signs of acute distress. Patient has no complaints of shortness of breath or chest pain. he is on 2 L nasal cannula. Hemoglobin is 7.5. Patient remains on aspirin, Norvasc, Lasix, sub-q heparin, hydralazine, Imdur, Lopressor. Patient has bilateral lower extremity edema. Patient was evaluated by psych yesterday, and determined that he is unable to make his own decisions. Social work is working on guardianship for the patient Objective - Vital Signs Vital signs: Vital Signs Temp 97.8 F 12/19/21 12:00 Pulse 54 L 12/19/21 12:00 Resp 16 12/19/21 12:00 BP 127/69 12/19/21 12:00 Pulse Ox 96 12/19/21 12:00 Intake & Output 12/18/21 12/19/21 12/19/21 17:59 06:59 18:59 Intake Total 420 Output Total Balance 420 Weight Intake: Oral 420 Output: Urine Stool Urine/Stool Mix Other: Voiding Method # Voids # Bowel Movements - Exam PHYSICAL EXAMINATION Vital signs reviewed. CONSTITUTIONAL: No apparent distress. HEENT: Neck Supple. No JVD. CHEST EXAMINATION: Lungs are diminished to auscultation bilaterally. 2 L nasal cannula HEART EXAMINATION: Irregular rate and rhythm. S1, S2 heard. Systolic ejection murmur noted ABDOMEN: Soft, nontender. Positive bowel sounds. EXTREMITIES: 2+ peripheral pulses, mild lower extremity edema and no calf tenderness. NEUROLOGIC EXAMINATION: Patient is awake, alert and oriented x1. - Labs CBC & Chem 7: 12/19/21 11:19 12/17/21 16:08 Labs: Abnormal Lab Results - Last 24 Hours (Table) 12/18/21 12/18/21 12/18/21 Range/Units 11:35 16:19 20:36 RBC (4.30-5.90) m/uL Hgb (13.0-17.5) gm/dL Hct (39.0-53.0) % MCV (80.0-100.0) fL RDW (11.5-15.5) % Plt Count (150-450) k/uL Macrocytosis POC Glucose (mg/dL) 125 H 145 H 124 H (75-99) mg/dL 12/19/21 12/19/21 Range/Units 06:03 11:19 RBC 2.24 L (4.30-5.90) m/uL Hgb 7.5 L (13.0-17.5) gm/dL Hct 23.8 L (39.0-53.0) % MCV 106.1 H (80.0-100.0) fL RDW 17.1 H (11.5-15.5) % Plt Count 106 L (150-450) k/uL Macrocytosis Marked A POC Glucose (mg/dL) 117 H (75-99) mg/dL Assessment and Plan Assessment: Acute on chronic heart failure with preserved EF, impaired 40-45%, related to volume overload, renal failure Acute renal failure, requiring initiating of hemodialysis on 12/15/2021 Elevated troponins not indicative of acute coronary syndrome. Related to acute renal failure, no evidence of angina symptoms. Cardiomyopathy EF 40-45%, unclear if ischemic vs non-ischemic at this time Persistent atrial fibrillation (not on anticoagulation secondary to refusal in the past) Coronary artery disease status post previous PCI of the mid LAD in 2006 Anemia Melena Hyperlipidemia GERD History of duodenal ulcer History of prior GI bleed. Hypertension Coronary artery disease with history of prior PCI Valvular heart disease Plan: We will continue with current medical therapy with amlodipine, aspirin, hydralazine Lasix and metoprolol Consult to social work for guardianship Continuous supplements O2 Hemodialysis ordered per nephrology Patient not on anticoagulation for atrial fibrillation due to refusal No ACEI/ARB due to renal function at this time Further recommendations based on clinical course Nurse practitioner note has been reviewed by physician. Signing provider agrees with the documented findings, assessment, and plan of care.
--- NOTE | 2021-12-19 13:43 | P.PN ---
Subjective Patient is seen for follow-up for CK D stage IV and hyperkalemia. Patient has agreed to start renal replacement therapy. Patient had stated that he had been scared of dialysis this was discussed in detail with him. IJ permacath was placed and patient was started on dialysis on 12/15/2021. He has had 3 treatments thus far. Volume status is significantly improved. However yesterday the patient stated that he does not want to continue with dialysis. I have advised him that we will be holding off on dialysis over the weekend and we can rediscuss this issue with him again on Monday and if he absolutely does not want to continue with renal replacement therapy the IJ permacath will be discontinued. No complaints today. Objective - Vital Signs Vital signs: Vital Signs Temp 97.8 F 12/19/21 12:00 Pulse 54 L 12/19/21 12:00 Resp 16 12/19/21 12:00 BP 127/69 12/19/21 12:00 Pulse Ox 96 12/19/21 12:00 Intake & Output 12/18/21 12/19/21 12/19/21 17:59 06:59 18:59 Intake Total 420 Output Total Balance 420 Weight Intake: Oral 420 Output: Urine Stool Urine/Stool Mix Other: Voiding Method # Voids # Bowel Movements - Exam Awake comfortable not in any acute distress. Examination of the heart S1 and S2 Examination lungs bilateral breath sounds are heard Abdomen is soft nontender Examination lower extremity shows chronic skin changes. DIGITAL CONTENT PRODUCER exam grossly intact - Labs CBC & Chem 7: 12/19/21 11:19 12/17/21 16:08 Labs: Abnormal Lab Results - Last 24 Hours (Table) 12/18/21 12/18/21 12/19/21 Range/Units 16:19 20:36 06:03 RBC (4.30-5.90) m/uL Hgb (13.0-17.5) gm/dL Hct (39.0-53.0) % MCV (80.0-100.0) fL RDW (11.5-15.5) % Plt Count (150-450) k/uL Macrocytosis POC Glucose (mg/dL) 145 H 124 H 117 H (75-99) mg/dL 12/19/21 Range/Units 11:19 RBC 2.24 L (4.30-5.90) m/uL Hgb 7.5 L (13.0-17.5) gm/dL Hct 23.8 L (39.0-53.0) % MCV 106.1 H (80.0-100.0) fL RDW 17.1 H (11.5-15.5) % Plt Count 106 L (150-450) k/uL Macrocytosis Marked A POC Glucose (mg/dL) (75-99) mg/dL Assessment and Plan Assessment: 1. Chronic kidney disease stage V with no plans for renal replacement therapy initially but patient has now agreed for dialysis. Renal replacement therapy started on 12/15/2021. Patient has had 3 treatments thus far and this morning he states that he does not want to continue with the dialysis. We will rediscuss this again with him on Monday. At this time and will give him a break for the weekend. 2. Hyperkalemia associated with CK D and metabolic acidosis, expect improvement with renal replacement therapy 3. Metabolic acidosis associated with CK D maintained on sodium bicarb 4. Anemia of chronic disease with iron deficiency 5. Chronic diastolic CHF with [id number] mitral regurg and pulmonary hypertension 6. Hypertension with CK D 7. Volume overload. Improved significantly Plan: No dialysis over the weekend Re discuss Renal replacement therapy on Monday and if patient absolutely does not want to continue with renal replacement therapy we will discontinue the IJ permacath. JAVED [place]
[2021-12-19] MEDS: LORazepam 1 MG TAB PO PRN (20:59)
[2021-12-20] MEDS: FERROUS SULFATE 325 MG TAB PO SCH ×2 (06:13→19:29)
[2021-12-20] MEDS: PANTOPRAZOLE 40 MG TABLET PO SCH ×2 (06:13→19:24)
[2021-12-20 07:40] LABS: Calcium 7.9 mg/dL (8.4-10.2); Potassium 3.5 mmol/L (3.5-5.1)
--- NOTE | 2021-12-20 09:34 | P.PN ---
Subjective Patient is seen in follow-up for chronic kidney disease stage V and hyperkalemia. Patient agreed to start hemodialysis and underwent 2 treatments o f hemodialysis this admission. Last treatment was on 12/17/2021. Patient does make urine. No active complaints this morning. However he is refusing hemodialysis. Vital signs are stable. General: Awake and alert. HEENT: Head exam is unremarkable. LUNGS: Breath sounds decreased. HEART: Rate and Rhythm are regular. ABDOMEN: Soft, no distention. EXTREMITITES: No edema. Objective - Vital Signs Vital signs: Vital Signs Temp 97.9 F 12/20/21 04:00 Pulse 73 12/20/21 04:00 Resp 16 12/20/21 04:00 BP 148/74 12/20/21 04:00 Pulse Ox 96 12/20/21 04:00 Intake & Output 12/19/21 12/20/21 12/20/21 18:59 06:59 18:59 Intake Total 660 Output Total 175 200 Balance 485 -200 Weight 80 kg Intake: Oral 660 Output: Urine 175 200 Stool 0 Other: Voiding Method Urinal Urinal # Bowel Movements 1 - Labs CBC & Chem 7: 12/19/21 11:19 12/20/21 06:41 Labs: Abnormal Lab Results - Last 24 Hours (Table) 12/19/21 12/20/21 Range/Units 11:19 06:41 RBC 2.24 L (4.30-5.90) m/uL Hgb 7.5 L (13.0-17.5) gm/dL Hct 23.8 L (39.0-53.0) % MCV 106.1 H (80.0-100.0) fL RDW 17.1 H (11.5-15.5) % Plt Count 106 L (150-450) k/uL Macrocytosis Marked A Carbon Dioxide 31 H (22-30) mmol/L BUN 52 H (9-20) mg/dL Creatinine 5.29 H (0.66-1.25) mg/dL Glucose 104 H (74-99) mg/dL Calcium 7.9 L (8.4-10.2) mg/dL Assessment and Plan Plan: Assessment: 1. Chronic kidney disease stage V. Underwent 2 hemodialysis treatments this admission but is now refusing and does not want any form of renal replacement therapy at this time. 2. Hyperkalemia secondary to chronic kidney disease and acidosis. Improved postdialysis. 3. Metabolic acidosis secondary to chronic kidney disease. Improved postdialysis. On oral bicarb as well. 4. Chronic kidney disease mineral bone disease maintained on calcitriol. 5. Volume overload. Improved post dialysis. 6. Anemia of chronic kidney disease. Status post IV iron. 7. Chronic diastolic CHF with mild to moderate mitral regurgitation and p ulmonary hypertension. 8. Hypertension with chronic kidney disease. Plan: Maintain oral bicarb. Increase Lasix to 80 mg orally twice daily. Resume lokelma 10 g tid. Add Aranesp. Patient refusing renal replacement therapy. He does not want any form or renal replacement therapy at this time. Discussed with the patient life-threatening effects of stopping dialysis, including hyperkalemia and , he understands and states that this is his decision. On last patient changes his mind, will discontinue permacath prior to discharge. Repeat BMP in 2-3 days postdischarge. Follow up outpatient in 1 week.
[2021-12-20] MEDS: CYANOCOBALAMIN 500 MCG TAB PO SCH (09:37)
[2021-12-20] MEDS: amLODIPine 5 MG TAB PO SCH (09:37)
[2021-12-20] MEDS: FUROSEMIDE 20 MG TAB PO SCH (09:37)
[2021-12-20] MEDS: ASPIRIN 81 MG PO SCH (09:37)
[2021-12-20] MEDS: CHOLECALCIFEROL 125 MCG (5000 IU) TABLET PO SCH (09:37)
[2021-12-20] MEDS: HEPARIN SODIUM,PORCINE/PF 5,000 UNIT/0.5 ML SYRINGE SQ SCH (09:38)
[2021-12-20] MEDS: polyethylene glycoL 3350 17 GM POWD.PACK PO SCH (09:38)
[2021-12-20] MEDS: SODIUM BICARBONATE TAB 650 MG TAB PO SCH ×2 (09:38→15:31)
[2021-12-20] MEDS: hydrALAZINE HCL 50 MG TAB PO SCH ×2 (09:38→15:31)
[2021-12-20] MEDS: METOPROLOL TARTRATE 12.5 MG TAB PO SCH (09:38)
[2021-12-20] MEDS: ISOSORBIDE MONONITRATE ER 30 MG TAB.ER.24H PO SCH (09:38)
[2021-12-20] MEDS: HYDROcodone/APAP 10-325MG 1 EACH TAB PO PRN (09:40)
[2021-12-20] MEDS ORDERED: DARBEPOETIN ALFA 40 MCG/0.4 ML SYRINGE SQ SCH (10:00)
[2021-12-20] MEDS ORDERED: MORPHINE SULFATE 2 MG/ML SYRINGE IV PRN (12:13)
[2021-12-20] MEDS: CALCIUM ACETATE 667 MG TAB PO SCH ×2 (12:16→19:23)
[2021-12-20] MEDS ORDERED: MORPHINE SULFATE (100 MG/2 ML) 100 MG in SODIUM CHLORIDE 0.9% 100 ML IV SCH (12:30)
[2021-12-20 13:15] LABS: Albumin 3.06 g/dL (3.80-4.90); Gamma Globulin 0.79 g/dL (0.70-1.50)
--- NOTE | 2021-12-20 13:54 | P.PN ---
Subjective Progress Note Date: 12/20/21 Principal diagnosis: CKD, hyperkalemia Pt is confused this AM, he is unhappy about being in the hospital, he wants out of bed. States all over body pain Objective - Vital Signs Vital signs: Vital Signs Temp 99.9 F H 12/20/21 08:00 Pulse 90 12/20/21 08:00 Resp 24 12/20/21 12:46 BP 129/78 12/20/21 08:00 Pulse Ox 90 L 12/20/21 08:00 Intake & Output 12/19/21 12/20/21 12/20/21 18:59 06:59 18:59 Intake Total 660 Output Total 175 200 Balance 485 -200 Weight 80 kg Intake: Oral 660 Output: Urine 175 200 Stool 0 Other: Voiding Method Urinal Urinal # Bowel Movements 1 - Constitutional General appearance: Present: average body habitus, cooperative, no acute distress - EENT Eyes: Present: anicteric sclerae, EOMI ENT: Present: hearing grossly normal - Respiratory Respiratory: bilateral: CTA - Cardiovascular Heart sounds: normal: S1, S2 - Gastrointestinal General gastrointestinal: Present: normal bowel sounds - Musculoskeletal Musculoskeletal: Present: generalized weakness - Psychiatric Psychiatric: Absent: A&O x's 3, appropriate affect, intact judgment & insight - Labs CBC & Chem 7: 12/19/21 11:19 12/20/21 06:41 Labs: Abnormal Lab Results - Last 24 Hours (Table) 12/17/21 12/20/21 Range/Units 16:08 06:41 Carbon Dioxide 31 H (22-30) mmol/L BUN 52 H (9-20) mg/dL Creatinine 5.29 H (0.66-1.25) mg/dL Glucose 104 H (74-99) mg/dL Calcium 7.9 L (8.4-10.2) mg/dL Albumin (PEP) 3.06 L (3.80-4.90) g/dL Beta Globulins 0.59 L (0.60-1.30) g/dL Assessment and Plan (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 Pthas progressive anemia but, has progressive renal failure. WBC and plt are stable at least for last year. Current Visit: No Status: Chronic Priority: Medium Code(s): D47.2 - MONOCLONAL GAMMOPATHY SNOMED Code(s): 186679316
[2021-12-20] MEDS ORDERED: FUROSEMIDE 80 MG TAB PO SCH (16:00)
[2021-12-20] MEDS ORDERED: LIDOCAINE 2% INJ 20 MG/ML (20 ML MDV) ONE (17:12)
--- NOTE | 2021-12-20 17:47 | PCN ---
PROCEDURE NOTE PREOPERATIVE DIAGNOSIS: Acute on chronic renal failure. POSTOPERATIVE DIAGNOSIS: Acute on chronic renal failure. PROCEDURE: Removal of dialysis catheter, right jugular approach. PROCEDURE DESCRIPTION: The patient was seen in the room. Right side of the neck was prepped and drapes were applied in a sterile manner. Lidocaine 1% plain was infiltrated. Stitches were removed. Catheter was removed. Pressure was held, pressure dressing applied. Patient tolerated the procedure well. MMODL / IJN: [id number] /
--- NOTE | 2021-12-20 17:58 | P.PN ---
Subjective Progress Note Date: 12/20/21 Principal diagnosis: progress note He was seen in his room resting quietly in the bed. He was intermittently agitated, complaining of being confined with physical restaints. I have to reviewed the medical update. He is awaiting for substitute decision making of his close family in view o fhis incompetent to consent to undergo medical precedure; eg dialysis and related investigations. I agree with his impaired capacity to evaluate the benefits of treatment , to evaluate the risks of refusing treatment , and to list any other alternative. His cognitive capacity with early AD drives his imparied decision complicated by the metabolc factor eg uremic encephalopathy and hyperkalemia. A: early Dementia; atypical compliced by CKD. plan: medical directive to be completed pt progress will be omayra Objective - Vital Signs Vital signs: Vital Signs Temp 99.9 F H 12/20/21 08:00 Pulse 81 12/20/21 15:45 Resp 12 12/20/21 15:45 BP 129/78 12/20/21 08:00 Pulse Ox 90 L 12/20/21 08:00 Intake & Output 12/19/21 12/20/21 12/20/21 18:59 06:59 18:59 Intake Total 660 Output Total 175 200 Balance 485 -200 Weight 80 kg Intake: Oral 660 Output: Urine 175 200 Stool 0 Other: Voiding Method Urinal Urinal # Bowel Movements 1 - Labs CBC & Chem 7: 12/19/21 11:19 12/20/21 06:41 Labs: Abnormal Lab Results - Last 24 Hours (Table) 12/17/21 12/20/21 Range/Units 16:08 06:41 Carbon Dioxide 31 H (22-30) mmol/L BUN 52 H (9-20) mg/dL Creatinine 5.29 H (0.66-1.25) mg/dL Glucose 104 H (74-99) mg/dL Calcium 7.9 L (8.4-10.2) mg/dL Albumin (PEP) 3.06 L (3.80-4.90) g/dL Beta Globulins 0.59 L (0.60-1.30) g/dL
[2021-12-21] MEDS: HYDROcodone/APAP 10-325MG 1 EACH TAB PO PRN ×2 (06:44→15:20)
[2021-12-21 07:30] LABS: Calcium 7.8 mg/dL (8.4-10.2); Magnesium 1.9 mg/dL (1.6-2.3); Potassium 3.6 mmol/L (3.5-5.1)
[2021-12-21] MEDS ORDERED: SODIUM ZIRCONIUM CYCLOSILICATE 10 GM PACKET PO SCH (08:00)
--- NOTE | 2021-12-21 09:17 | P.PN ---
Subjective Patient is seen in follow-up for chronic kidney disease stage V and hyperkalemia. Patient agreed to start hemodialysis and underwent 2 treatments o f hemodialysis this admission. Last treatment was on 12/17/2021. Patient does make urine. He is now refusing dialysis. Permacath was removed 12/20/2021. Vital signs are stable. General: Awake and alert. HEENT: Head exam is unremarkable. LUNGS: Breath sounds decreased. HEART: Rate and Rhythm are regular. ABDOMEN: Soft, no distention. EXTREMITITES: No edema. Objective - Vital Signs Vital signs: Vital Signs Temp 98.2 F 12/21/21 08:08 Pulse 64 12/21/21 08:08 Resp 19 12/21/21 08:08 BP 110/68 12/21/21 08:08 Pulse Ox 97 12/21/21 08:08 Intake & Output 12/20/21 12/21/21 12/21/21 18:59 06:59 18:59 Intake Total 180 Output Total 200 Balance -200 180 Intake: Oral 180 Output: Urine 200 Other: # Voids 2 - Labs CBC & Chem 7: 12/19/21 11:19 12/21/21 06:00 Labs: Abnormal Lab Results - Last 24 Hours (Table) 12/17/21 12/21/21 Range/Units 16:08 06:00 Carbon Dioxide 32 H (22-30) mmol/L BUN 58 H (9-20) mg/dL Creatinine 5.93 H (0.66-1.25) mg/dL Calcium 7.8 L (8.4-10.2) mg/dL Albumin (PEP) 3.06 L (3.80-4.90) g/dL Beta Globulins 0.59 L (0.60-1.30) g/dL Assessment and Plan Plan: Assessment: 1. Chronic kidney disease stage V. Underwent 2 hemodialysis treatments this admission but is now refusing and does not want any form of renal replacement therapy at this time. Permacath removed 12/20/2021. 2. Hyperkalemia secondary to chronic kidney disease and acidosis. Improved postdialysis. 3. Metabolic acidosis secondary to chronic kidney disease. Improved postdialysis. 4. Chronic kidney disease mineral bone disease maintained on calcitriol. 5. Volume overload. Improved post dialysis. 6. Anemia of chronic kidney disease. Status post IV iron. 7. Chronic diastolic CHF with mild to moderate mitral regurgitation and pulmonary hypertension. 8. Hypertension with chronic kidney disease. Controlled. Plan: Patient continues to refuse any form of renal replacement therapy. He has decided to proceed with hospice. Will sign off.
[2021-12-21 11:06] VITALS: BMI 26.8
[2021-12-21] MEDS ORDERED: MORPHINE SULFATE 2 MG/ML SYRINGE IVP PRN (11:16)
[2021-12-21 11:29] LABS: Free Kappa Lt Chain Qnt, Serum 15.45 mg/dL (0.33-1.94); Free Lambda Lt Chain Qnt, Seru 12.37 mg/dL (0.57-2.63)
--- NOTE | 2021-12-21 11:31 | P.PN ---
Subjective Progress Note Date: 12/21/21 Principal diagnosis: shortness of breath Patient is a 86-year-old male presented to the emergency room via ambulance for shortness of breath. He reported that he ran out of Lasix. Patient has a pertinent medical history of A. fib, hypertension, GERD, duodenal ulcer, neuropathy, chronic kidney disease and has been refusing dialysis. Chest x-ray showed mild congestive failure. Potassium was 7.4 on admission, BUN 97, creatinine 7.5, GFR 6. Troponin was 0.093, BNP 25,500. Nephrology was consulted. Patient is known to the office, have discussed need for dialysis multiple times with patient, patient continues to refuse. Hospitalist coverage 12/10/21-12/13/21 12/14/2021 Patient was seen and examined at bedside, was in no acute distress. Discussed case with nurse, patient had been refusing all types of care for the past 2 days, including dialysis. Today the Patient had gotten up in the chair with physical therapy. Patient discussed options with Dr. Elise and agreed to getting dialysis. We discussed hospice as an option as well, patient denies at this time. Patient reports nausea and weakness. BUN today was 97, creatinine 8.0. Potassium remains elevated at 6.0, patient refuses to take medication for it. Orders were placed for dialysis catheter placement. Will continue following with nephrology recommendations. 12/15/2021 Patient seen and examined at bedside. Patient was receiving dialysis through [facility] permacath. Patient was resting comfortably in bed, no acute distress. Denies chest pain, shortness of breath or palpitations. Potassium was 5.9, BUN 109, creatinine 8.2. All values should improve with dialysis treatment. Continue following with nephrology recommendations. Echo found decreased EF of 40-45% from previous echo in july 2021. Cardiology consult ordered. 12/16/2021 Patient was assessed at bedside. Was receiving second treatment of dialysis through [facility] permacath. Patient is resting comfortably in bed, aroused to voice, reports generalized pain all over body. Patient had just received [place] for pain. Patient denies chest pain, shortness of breath, palpitations or chills. Lab work improved greatly with dialysis treatment, BUN 60, creatinine 5.2, GFR 9. Potassium improved, down to 4.1. Continue following with consults r ecommendations. 12/17/21-12/20/21 hospitalist coverage 12/21/2021 Patient was seen and assessed at bedside. Patient decided over the weekend that he wanted to stop dialysis and start hospice. Dialysis catheter was removed. Comfort care was ordered, patient planned to go to [facility] on hospice. Psych iatry consult was ordered, it was determined he was incompetent to make his own choices. Patient does not have children, no next of kin. Patient's stepdaughter was working on becoming guardian prior to admission, did not have court date until February. Waiting for approval so patient can be moved and start hospice care. Objective - Vital Signs Vital signs: Vital Signs Temp 98.2 F 12/21/21 08:08 Pulse 64 12/21/21 08:08 Resp 19 12/21/21 08:08 BP 110/68 12/21/21 08:08 Pulse Ox 97 12/21/21 08:08 Intake & Output 12/20/21 12/21/21 12/21/21 18:59 06:59 18:59 Intake Total 180 Output Total 200 200 Balance -200 -20 Weight 80 kg Intake: Oral 180 Output: Urine 200 200 Other: Voiding Method Urinal # Voids 2 - Constitutional General appearance: Present: cooperative, no acute distress - EENT Eyes: Present: EOMI, PERRLA ENT: Present: normal oropharynx Ears: bilateral: normal - Neck Neck: Present: normal ROM - Respiratory Respiratory: bilateral: diminished, rhonchi - Cardiovascular Heart rate: 64 Rhythm: regular Heart sounds: normal: S1, S2 - Peripheral pulses radial pulse Peripheral Pulses: bilateral: Normal - Gastrointestinal General gastrointestinal: Present: normal bowel sounds, soft - Integumentary Integumentary: Present: normal turgor, pale - Neurologic Neurologic: Present: focal deficits - Musculoskeletal Musculoskeletal: Present: generalized weakness - Psychiatric Psychiatric Comment(s): alert, oriented x2 - Allied health notes Allied health notes reviewed: nursing - Labs CBC & Chem 7: 12/19/21 11:19 12/21/21 06:00 Labs: Abnormal Lab Results - Last 24 Hours (Table) 12/17/21 12/21/21 Range/Units 16:08 06:00 Carbon Dioxide 32 H (22-30) mmol/L BUN 58 H (9-20) mg/dL Creatinine 5.93 H (0.66-1.25) mg/dL Calcium 7.8 L (8.4-10.2) mg/dL Albumin (PEP) 3.06 L (3.80-4.90) g/dL Beta Globulins 0.59 L (0.60-1.30) g/dL Assessment and Plan Assessment: End stage chronic kidney disease, refusing dialysis, comfort care Hyperkalemia, resolved Acute on chronic congestive heart failure Iron deficient anemia, refused EGD Atrial fibrillation with controlled ventricular response Chronic back pain with chronic bilateral leg weakness, refused x-ray imaging Hypertension History of GERD Plan: Patient refused dialysis, proceeding with with hospice care managing pain, keeping patient comfortable Continue to monitor vital signs, mental status Further recommendations to come based on patient's clinical course Awaiting legal process in order to transfer to [facility] for hospice care Time with Patient: Greater than 30
--- NOTE | 2021-12-21 18:05 | P.PN ---
Subjective Progress Note Date: 12/21/21 Principal diagnosis: CKD, hyperkalemia Patient seen this a.m., resting comfortably, I asked him if he was in any pain, he said "NO". Objective - Vital Signs Vital signs: Vital Signs Temp 98.2 F 12/21/21 08:08 Pulse 64 12/21/21 08:08 Resp 19 12/21/21 08:08 BP 110/68 12/21/21 08:08 Pulse Ox 97 12/21/21 08:08 Intake & Output 12/20/21 12/21/21 12/21/21 18:59 06:59 18:59 Intake Total 180 Output Total 200 Balance -200 180 Intake: Oral 180 Output: Urine 200 Other: # Voids 2 - Constitutional General appearance: Present: average body habitus, no acute distress - EENT Eyes: Present: anicteric sclerae ENT: Present: hearing grossly normal - Respiratory Details: respirations even and unlabored at rest - Musculoskeletal Musculoskeletal: Present: generalized weakness - Labs CBC & Chem 7: 12/19/21 11:19 12/21/21 06:00 Labs: Abnormal Lab Results - Last 24 Hours (Table) 12/17/21 12/21/21 Range/Units 16:08 06:00 Carbon Dioxide 32 H (22-30) mmol/L BUN 58 H (9-20) mg/dL Creatinine 5.93 H (0.66-1.25) mg/dL Calcium 7.8 L (8.4-10.2) mg/dL Albumin (PEP) 3.06 L (3.80-4.90) g/dL Beta Globulins 0.59 L (0.60-1.30) g/dL Assessment and Plan (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 Paraproteinemia reading 0.08 g/dL, this is down from 0.11 g/dL previously. Pt has progressive anemia but, has progressive renal failure. He is noted on labs to have mild iron deficiency. He was given parenteral iron and JANAK by Nephrology. WBC and plt are stable at least for last year. Current Visit: No Status: Chronic Priority: Medium Code(s): D47.2 - MONOCLONAL GAMMOPATHY SNOMED Code(s): 498568911
[2021-12-22] MEDS: HYDROcodone/APAP 10-325MG 1 EACH TAB PO PRN ×3 (05:56→20:22)
--- NOTE | 2021-12-22 12:21 | P.PN ---
Subjective Progress Note Date: 12/22/21 Principal diagnosis: shortness of breath Patient is a 86-year-old male presented to the emergency room via ambulance for shortness of breath. He reported that he ran out of Lasix. Patient has a pertinent medical history of A. fib, hypertension, GERD, duodenal ulcer, neuropathy, chronic kidney disease and has been refusing dialysis. Chest x-ray showed mild congestive failure. Potassium was 7.4 on admission, BUN 97, creatinine 7.5, GFR 6. Troponin was 0.093, BNP 25,500. Nephrology was consulted. Patient is known to the office, have discussed need for dialysis multiple times with patient, patient continues to refuse. Hospitalist coverage 12/10/21-12/13/21 12/14/2021 Patient was seen and examined at bedside, was in no acute distress. Discussed case with nurse, patient had been refusing all types of care for the past 2 days, including dialysis. Today the Patient had gotten up in the chair with physical therapy. Patient discussed options with Dr. Elise and agreed to getting dialysis. We discussed hospice as an option as well, patient denies at this time. Patient reports nausea and weakness. BUN was 97, creatinine 8.0. Potassium remains elevated at 6.0, patient refuses to take medication for it. Orders were placed for dialysis catheter placement. Will continue following with nephrology recommendations. 12/15/2021 Patient seen and examined at bedside. Patient was receiving dialysis through [facility] permacath. Patient was resting comfortably in bed, no acute distress. Denies chest pain, shortness of breath or palpitations. Potassium was 5.9, BUN 109, creatinine 8.2. All values should improve with dialysis treatment. Continue following with nephrology recommendations. Echo found decreased EF of 40-45% from previous echo in july 2021. Cardiology consult ordered. 12/16/2021 Patient was assessed at bedside. Was receiving second treatment of dialysis through [facility] permacath. Patient is resting comfortably in bed, aroused to voice, reports generalized pain all over body. Patient had just received [place] for pain. Patient denies chest pain, shortness of breath, palpitations or chills. Lab work improved greatly with dialysis treatment, BUN 60, creatinine 5.2, GFR 9. Potassium improved, down to 4.1. Continue following with consults recomme ndations. 12/17/21-12/20/21 hospitalist coverage 12/21/2021 Patient was seen and assessed at bedside. Patient decided over the weekend that he wanted to stop dialysis and start hospice. Dialysis catheter was removed. Comfort care was ordered, patient planned to go to [facility] on hospice. Psychiatry consult was ordered, it was determined he was incompetent to make his own choices. Patient does not have children, no next of kin. Patient's stepdaughter was working on becoming guardian prior to admission, did not have court date until February. Waiting for approval so patient can be moved and start hospice care. 12/22/2021 Patient was assessed at bedside. Patient was sitting up in bed in no acute distress. Patient reports wanting to go home, will go to [facility] in a few days he states. Patient says he no longer wants hospice but will go to assisted- living. Patient states he knows what he is doing with his body, knows that not doing dialysis can lead to , but does not want to do hospice. Patient is agreeable to palliative care at this time, will have psychiatry reevaluate cognitive ability to make this decision. Stepdaughters working on guardianship, does not have court date until next week. Will wait for psychiatry reevaluation. Objective - Vital Signs Vital signs: Vital Signs Temp 98.4 F 12/22/21 08:12 Pulse 70 12/22/21 08:12 Resp 18 12/22/21 08:12 BP 132/68 12/22/21 08:12 Pulse Ox 97 12/22/21 08:12 Intake & Output 12/21/21 12/22/21 12/22/21 18:59 06:59 18:59 Intake Total 180 240 Output Total 200 200 100 Balance -20 -200 140 Weight 80 kg Intake: Oral 180 240 Output: Urine 200 200 100 Stool 0 Other: Voiding Method Urinal Urinal - Constitutional General appearance: Present: average body habitus, no acute distress - EENT Eyes: Present: EOMI, PERRLA ENT: Present: hard of hearing, normal oropharynx - Neck Neck: Present: normal ROM - Respiratory Respiratory: bilateral: diminished, rhonchi - Cardiovascular Heart rate: 70 Rhythm: regular Heart sounds: normal: S1, S2 - Peripheral pulses radial pulse Peripheral Pulses: bilateral: Normal - Gastrointestinal General gastrointestinal: Present: normal bowel sounds, soft - Integumentary Integumentary: Present: pale - Neurologic Neurologic: Present: focal deficits - Musculoskeletal Musculoskeletal: Present: generalized weakness - Psychiatric Psychiatric Comment(s): alert, A&Ox2 - Allied health notes Allied health notes reviewed: nursing - Labs CBC & Chem 7: 12/19/21 11:19 12/21/21 06:00 Assessment and Plan Assessment: End stage chronic kidney disease, refusing dialysis, palliative care Hyperkalemia, resolved Acute on chronic congestive heart failure Iron deficient anemia, refused EGD Atrial fibrillation with controlled ventricular response Chronic back pain with chronic bilateral leg weakness, refused x-ray imaging Hypertension History of GERD Plan: Obtaining second opinion of patients cognitive ability Patient refused dialysis, proceeding with with comfort care managing pain, keeping patient comfortable Continue to monitor vital signs, mental status Further recommendations to come based on patient's clinical course Awaiting legal process in order to transfer to [facility] for hospice care
[2021-12-22] MEDS ORDERED: METOPROLOL TARTRATE 12.5 MG TAB PO STA (16:03)
[2021-12-22] MEDS: FUROSEMIDE 40 MG TAB PO SCH (16:24)
[2021-12-22] MEDS: SODIUM BICARBONATE TAB 650 MG TAB PO SCH (20:22)
[2021-12-22] MEDS: hydrALAZINE HCL 25 MG TAB PO SCH (20:23)
[2021-12-22] MEDS: amLODIPine 5 MG TAB PO SCH (20:23)
[2021-12-23] MEDS: HYDROcodone/APAP 10-325MG 1 EACH TAB PO PRN (04:47)
[2021-12-23] MEDS ORDERED: PANTOPRAZOLE 40 MG TABLET PO SCH (07:30)
[2021-12-23] MEDS ORDERED: ISOSORBIDE MONONITRATE ER 30 MG TAB.ER.24H PO SCH (09:00)
[2021-12-23] MEDS ORDERED: ASPIRIN 81 MG PO SCH (09:00)
[2021-12-23 09:11] VITALS: PULSE 75
[2021-12-23] MEDS: SODIUM BICARBONATE TAB 650 MG TAB PO SCH (09:45)
[2021-12-23] MEDS: hydrALAZINE HCL 25 MG TAB PO SCH (09:45)
[2021-12-23] MEDS: amLODIPine 5 MG TAB PO SCH (09:45)
[2021-12-23] MEDS: FUROSEMIDE 40 MG TAB PO SCH (09:45)
--- NOTE | 2021-12-23 10:10 | P.PN ---
Subjective Patient is seen in follow-up for chronic kidney disease stage V and hyperkalemia. Patient is not hospice at this time and guardianship will be obta ined next week. However patient continues to refuse any form of renal replacement therapy and this has been discussed with his stepdaughter who is agreeable to not do dialysis. Patient wants to go home. He denies chest pain or shortness of breath. Hemodynamically stable. Vital signs are stable. General: Awake and alert. HEENT: Head exam is unremarkable. LUNGS: Breath sounds decreased. HEART: Rate and Rhythm are regular. ABDOMEN: Soft, no distention. EXTREMITITES: No edema. Objective - Vital Signs Vital signs: Vital Signs Temp 97.8 F 12/23/21 08:45 Pulse 75 12/23/21 08:45 Resp 17 12/23/21 08:45 BP 137/52 12/23/21 08:45 Pulse Ox 95 12/23/21 08:45 Intake & Output 12/22/21 12/23/21 12/23/21 18:59 06:59 18:59 Intake Total 480 120 Output Total 350 125 150 Balance 130 -125 -30 Intake: Oral 480 120 Output: Urine 350 125 150 Stool 0 Other: Voiding Method Urinal Urinal - Labs CBC & Chem 7: 12/19/21 11:19 12/21/21 06:00 Assessment and Plan Plan: Assessment: 1. Chronic kidney disease stage V. Underwent 2 hemodialysis treatments this admission but is now refusing and does not want any form of renal replacement therapy at this time. Permacath removed 12/20/2021. 2. Hyperkalemia secondary to chronic kidney disease and acidosis. Improved postdialysis. 3. Metabolic acidosis secondary to chronic kidney disease. Improved postdialysis. 4. Chronic kidney disease mineral bone disease maintained on calcitriol. 5. Volume overload. Improved post dialysis. 6. Anemia of chronic kidney disease. Status post IV iron. 7. Chronic diastolic CHF with mild to moderate mitral regurgitation and pulmonary hypertension. 8. Hypertension with chronic kidney disease. Controlled. Plan: Maintain Lasix. Resume lokelma. Repeat BMP and magnesium level 2 to 3 days postdischarge. Follow up outpatient in 1 week. Patient will be going to rehab upon discharge. Life-threatening risks, including , of not doing renal replacement therapy and hyperkalemia were discussed with the patient and family.
[2021-12-23] MEDS ORDERED: SODIUM ZIRCONIUM CYCLOSILICATE 10 GM PACKET PO SCH (10:15)
--- NOTE | 2021-12-23 11:08 | P.DS ---
Providers Date of admission: 12/10/21 16:25 Expected date of discharge: 12/23/21 Attending physician: Osvaldo Robbins Consults: 12/10/21 16:26 Consult Physician Urgent Consulting Provider: Román Lam Consult Reason/Comments: CKD, hyperkalemia Do you want consulting provider notified?: Yes, Notify in am 12/14/21 10:24 Consult Physician Urgent Consulting Provider: Caden Kamara Consult Reason/Comments: dialysis catheter Do you want consulting provider notified?: Yes 12/17/21 11:38 Consult Physician Urgent Consulting Provider: Hector Rivera Consult Reason/Comments: chronic DVT/SVT Do you want consulting provider notified?: Yes 12/17/21 18:10 Consult Physician Urgent Consulting Provider: Daniel Schaeffer Consult Reason/Comments: pt refusal of treatment eg EGD Do you want consulting provider notified?: Yes Primary care physician: Osvaldo Robbins Hospital Course: Patient is a 86-year-old male presented to the emergency room via ambulance for shortness of breath. He reported that he ran out of Lasix. Patient has a pertinent medical history of A. fib, hypertension, GERD, duodenal ulcer, neuropathy, chronic kidney disease and has been refusing dialysis. Chest x-ray showed mild congestive failure. Potassium was 7.4 on admission, BUN 97, creatinine 7.5, GFR 6. Troponin was 0.093, BNP 25,500. Nephrology was consulted. Patient is known to the office, have discussed need for dialysis multiple times with patient, patient continues to refuse. Hospitalist coverage 12/10/21-12/13/21 12/14/2021 Patient was seen and examined at bedside, was in no acute distress. Discussed case with nurse, patient had been refusing all types of care for the past 2 days, including dialysis. Today the Patient had gotten up in the chair with physical therapy. Patient discussed options with Dr. Elise and agreed to getting dialysis. We discussed hospice as an option as well, patient denies at this time. Patient reports nausea and weakness. BUN was 97, creatinine 8.0. Potassium remains elevated at 6.0, patient refuses to take medication for it. Orders were placed for dialysis catheter placement. Will continue following with nephrology recommendations. 12/15/2021 Patient seen and examined at bedside. Patient was receiving dialysis through [facility]. Patient was resting comfortably in bed, no acute distress. Denies chest pain, shortness of breath or palpitations. Potassium was 5.9, BUN 109, creatinine 8.2. All values should improve with dialysis treatment. Continue following with nephrology recommendations. Echo found decreased EF of 40-45% from previous echo in july 2021. Cardiology consult ordered. 12/16/2021 Patient was assessed at bedside. Was receiving second treatment of dialysis through [facility]. Patient is resting comfortably in bed, aroused to voice, reports generalized pain all over body. Patient had just received Goodrich for pain. Patient denies chest pain, shortness of breath, palpitations or chills. Lab work improved greatly with dialysis treatment, BUN 60, creatinine 5.2, GFR 9. Potassium improved, down to 4.1. Continue following with consults recommendations. 12/17/21-12/20/21 hospitalist coverage 12/21/2021 Patient was seen and assessed at bedside. Patient decided over the weekend that he wanted to stop dialysis and start hospice. Dialysis catheter was removed. Comfort care was ordered, patient planned to go to [facility] on hospice. Psychiatry consult was ordered, it was determined he was incompetent to make his own choices. Patient does not have children, no next of kin. Patient's stepdaughter was working on becoming guardian prior to admission, did not have court date until February. Waiting for approval so patient can be moved and start hospice care. 12/22/2021 Patient was assessed at bedside. Patient was sitting up in bed in no acute distress. Patient reports wanting to go home, will go to [facility] in a few days he states. Patient says he no longer wants hospice but will go to assisted-living. Patient states he knows what he is doing with his body, knows that not doing dialysis can lead to , but does not want to do hospice. Patient is agreeable to palliative care at this time, will have psychiatry reevaluate cognitive ability to make this decision. Stepdaughters working on guardianship, does not have court date until next week. Will wait for psychiatry reevaluation. 12/23/2021 Patient was seen and assessed at bedside. Patient was sitting up in chair in no acute distress. Patient states he is ready to be discharged to [facility]. Patient reports wanting to start physical therapy to his legs stop hurting. Patient continues to refuse dialysis, will continue supportive care. Patient is stable for discharge Assessment: End stage chronic kidney disease, refusing dialysis, palliative care Hyperkalemia, resolved Acute on chronic congestive heart failure Iron deficient anemia, refused EGD Atrial fibrillation with controlled ventricular response Chronic back pain with chronic bilateral leg weakness, refused x-ray imaging Hypertension History of GERD Health Concerns: multiple comorbidities Pertinent Studies: 12/17/21- US venous doppler found chronic DVT's Chest xray found right-sided double-lumen hemodialysis catheter tip, cardiomegaly, pulmonary vascular congestion and continued small effusions Echocardiogram found moderate concentric left ventricular hypertrophy, EF between 4045 percent Scrotal ultrasound found right and left hydroceles and scrotal sac edema Procedures: Hemodialysis catheter was inserted and discontinued Patient Condition at Discharge: Fair Plan - Discharge Summary Discharge Rx Participant: Yes New Discharge Prescriptions: New HYDROcodone/APAP 10-325MG [Goodrich 10-325] 1 each PO Q6HR PRN 2 Days #8 tab PRN Reason: Pain Continue Metoprolol Tartrate [Lopressor] 12.5 mg PO DAILY Pantoprazole [Protonix] 40 mg PO DAILY hydrALAZINE HCL [Apresoline] 25 mg PO TID #0 tab Furosemide [Lasix] 40 mg PO BID@0900,1600 30 Days #60 tab amLODIPine [Norvasc] 5 mg PO BID Aspirin 81 mg PO DAILY tab Sodium Bicarbonate Tab 650 mg PO BID tab Cholecalciferol (Vitamin D3) [Vitamin D3 (125 MCG = 5,000 IU)] 125 mcg PO DAILY Cyanocobalamin (Vitamin B-12) [Vitamin B-12] 5,000 mcg PO DAILY Sodium Zirconium Cyclosilicate [Lokelma] 5 gm PO DAILY 30 Days #30 packet Isosorbide Mononitrate ER [Imdur] 30 mg PO DAILY calcitrioL [Calcitriol] 0.25 mcg PO DIRECTED Ubidecarenone [Co Q-10] 100 mg PO DAILY Discharge Medication List Metoprolol Tartrate [Lopressor] 12.5 mg PO DAILY 07/28/21 [History] Pantoprazole [Protonix] 40 mg PO DAILY 07/28/21 [History] Aspirin 81 mg PO DAILY tab 08/09/21 [Rx] Sodium Bicarbonate Tab 650 mg PO BID tab 08/09/21 [Rx] hydrALAZINE HCL [Apresoline] 25 mg PO TID #0 tab 08/09/21 [Rx] Cholecalciferol (Vitamin D3) [Vitamin D3 (125 MCG = 5,000 IU)] 125 mcg PO DAILY 08/13/21 [History] Cyanocobalamin (Vitamin B-12) [Vitamin B-12] 5,000 mcg PO DAILY 08/13/21 [History] Furosemide [Lasix] 40 mg PO BID@0900,1600 30 Days #60 tab 08/16/21 [Rx] Sodium Zirconium Cyclosilicate [Lokelma] 5 gm PO DAILY 30 Days #30 packet 08/16/21 [Rx] Isosorbide Mononitrate ER [Imdur] 30 mg PO DAILY 12/10/21 [History] Ubidecarenone [Co Q-10] 100 mg PO DAILY 12/10/21 [History] amLODIPine [Norvasc] 5 mg PO BID 12/10/21 [History] calcitrioL [Calcitriol] 0.25 mcg PO DIRECTED 12/10/21 [History] HYDROcodone/APAP 10-325MG [Goodrich 10-325] 1 each PO Q6HR PRN 2 Days #8 tab 12/23/21 [Rx] Follow up Appointment(s)/Referral(s): Osvaldo Robbins MD [Primary Care Provider] - 1-2 days Ventura Adhikari MD [STAFF PHYSICIAN] - 2 Weeks Nathan Sullivan PAC [PHYSICIAN BAT PERSON] - As Needed (Patient may follow-up with Nathan Sullivan PA-C or Dr. Billy Daugherty at [facility] on as-needed basis following discharge. ) Discharge Disposition: TRANSFER TO SNF/ECF
[2021-12-23 13:21] VITALS: BP 133/71; RESP 16; TEMP 98.6
== END 2021-12-23 15:14 | DRG 682 ==
LOC: EC 14:36 → 3SCARD 16:25 → UNDODISIN 12-18 12:37
PROVIDERS: ADMIT Family Medicine; ATTEND Family Medicine
PROC: 02HV33Z Insertion of Infusion Device into Superior Vena Cava, Percutaneous Approach (ICD-10-PCS; principal; 2021-12-14 10:50)
PROC: 5A1D70Z Performance of Urinary Filtration, Intermittent, Less than 6 Hours Per Day (ICD-10-PCS; 2021-12-15)
PROC: 05PYX3Z Removal of Infusion Device from Upper Vein, External Approach (ICD-10-PCS; 2021-12-20)
DX: N17.9 Acute kidney failure, unspecified (principal); I50.43 Acute on chronic combined systolic (congestive) and diastolic (congestive) heart failure; I13.2 Hypertensive heart and chronic kidney disease with heart failure and with stage 5 chronic kidney disease, or end stage renal disease; I31.3 Pericardial effusion (noninflammatory); I47.1 Supraventricular tachycardia; I48.19 Other persistent atrial fibrillation; I42.9 Cardiomyopathy, unspecified; K92.1 Melena; E87.2 Acidosis; G93.49 Other encephalopathy; I27.20 Pulmonary hypertension, unspecified; I45.10 Unspecified right bundle-branch block; J44.9 Chronic obstructive pulmonary disease, unspecified; E83.9 Disorder of mineral metabolism, unspecified; D63.1 Anemia in chronic kidney disease; D69.6 Thrombocytopenia, unspecified; Z51.5 Encounter for palliative care; Z66 Do not resuscitate; N18.6 End stage renal disease; N43.3 Hydrocele, unspecified; Z99.2 Dependence on renal dialysis; F03.90 Unspecified dementia, unspecified severity, without behavioral disturbance, psychotic disturbance, mood disturbance, and anxiety; N50.89 Other specified disorders of the male genital organs; R29.6 Repeated falls; I34.0 Nonrheumatic mitral (valve) insufficiency; Z53.29 Procedure and treatment not carried out because of patient's decision for other reasons; I25.10 Atherosclerotic heart disease of native coronary artery without angina pectoris; K57.90 Diverticulosis of intestine, part unspecified, without perforation or abscess without bleeding; Z53.20 Procedure and treatment not carried out because of patient's decision for unspecified reasons; K21.9 Gastro-esophageal reflux disease without esophagitis; Z20.822 Contact with and (suspected) exposure to COVID-19; R77.8 Other specified abnormalities of plasma proteins; M62.830 Muscle spasm of back; M19.90 Unspecified osteoarthritis, unspecified site; G62.9 Polyneuropathy, unspecified; Z63.4 Disappearance and death of family member; D47.2 Monoclonal gammopathy; D50.9 Iron deficiency anemia, unspecified; D53.9 Nutritional anemia, unspecified; E78.5 Hyperlipidemia, unspecified; E87.5 Hyperkalemia; G89.29 Other chronic pain; Z79.82 Long term (current) use of aspirin; Z96.1 Presence of intraocular lens; Z79.899 Other long term (current) drug therapy; Z87.442 Personal history of urinary calculi; Z91.15 Patient's noncompliance with renal dialysis; Z91.19 Patient's noncompliance with other medical treatment and regimen; Z98.42 Cataract extraction status, left eye; Z98.61 Coronary angioplasty status; Z98.41 Cataract extraction status, right eye; Z87.11 Personal history of peptic ulcer disease; Z98.890 Other specified postprocedural states; Z90.89 Acquired absence of other organs; Z90.49 Acquired absence of other specified parts of digestive tract; Z87.01 Personal history of pneumonia (recurrent)
CPT/HCPCS: 36415; 36558; 71045; 71046; 76870; 76937; 77001; 80048; 80053; 82728; 82784; 83540; 83550; 83605; 83615; 83735; 83880; 83883; 84100; 84132; 84165; 84484; 84550; 85025; 85027; 85379; 85384; 85610; 85730; 86022; 86334; 86704; 86706; 87340; 87635; 90935; 93005; 93306; 93970; 93975; 94640; 94760; 96365; 96375; 99291